=== PATIENT | female | born 1965 | race Caucasian/White ===

== ENCOUNTER → 2016-07-02 | Outpatient (CLI) | payer OTHER ==
--- NOTE | 2016-07-02 18:35 | PN ---
Cassie is seeing me for a yearly check in regard to obstructive sleep apnea. The patient had severe LEONARDO with an AHI of 60. She was diagnosed back in 2007. The patient was given BiPAP at a pressure of 15/11 cm of water. She was having difficulties with her original BiPAP machine and during her last visit in 2013, I was hoping that I could proceed with another titration, which ultimately got declined by her insurance. In the interim, the patient was able to upgrade her machine to a ResMed VPAP auto and today she is coming in for a compliancy check. Since her last evaluation, the patient has lost approximately 25 pounds. Based on the compliance data that was collected over the past 30 days, the patient's CPAP use for more than 4 hours approaching 100%. The patient's average CPAP use is 7.8 hours per night. Her leak factor is 28 L/min and her AHI while on treatment is down to 2.5. She is using a Garay FX mask. She is doing well. She is waking up much more refreshed and alert during the day. This machine has improved this patient's quality of sleep significantly. Her Dresser score is down to 1 and she has no specific complaints otherwise for today. The only issue was mask discomfort from the Garay FX and I gave the patient alternative nasal pillow which will be an AirFit P10. BP is 128/78, pulse 82, respirations 16. Dresser score is 1, saturation 99% on room air, temperature 98.0 inches. Weight is 185. GENERAL APPEARANCE: Calm, comfortable. HEENT: Negative for JVD. There is no goiter, neck mass. LUNGS: Diminished breath sounds bilaterally, otherwise clear. HEART: Sounds are regular rate and rhythm. Normal S1, S2. No S3 or S4. No murmurs. ABDOMEN: Soft, nontender. No organomegaly. EXTREMITIES: No edema. No cyanosis or clubbing. IMPRESSION: 1. Severe symptomatic obstructive sleep apnea with an apnea-hypopnea index of 60. The patient is currently on variable positive airway pressure auto with excellent clinical response and compliance. 2. Obesity with interval 25 pounds weight loss. 3. Anxiety/depression. 4. Hyperlipidemia. 5. Osteoarthritis. PLAN: 1. Continue VPAP auto at the same level of pressures. 2. Provide the patient AirFit P10 nasal pillow. A prescription was given to [facility]. 3. Encourage further weight loss. 4. See me back in a year's time in followup, earlier if needed.
== END | disposition home or self-care (01) ==
LOC: SLEEP 14:18
PROVIDERS: ATTEND Internal Medicine Critical Care Medicine
DX: G47.33 Obstructive sleep apnea (adult) (pediatric) (principal); E66.9 Obesity, unspecified; F32.9 Major depressive disorder, single episode, unspecified; F41.9 Anxiety disorder, unspecified; E78.5 Hyperlipidemia, unspecified; M19.90 Unspecified osteoarthritis, unspecified site

== ENCOUNTER → 2017-06-03 | Outpatient (CLI) | payer BC ==
[2017-06-03 08:29] LABS: Basophils # (A) 0.1 k/uL (0-0.2); Basophils % (A) 1 %; Eosinophils # (A) 0.3 k/uL (0-0.7); Eosinophils % (A) 4 %; HCT 41.2 % (34.0-46.0); Lymphocytes # (A) 3.3 k/uL (1.0-4.8); Lymphocytes % (A) 39 %; MCH 27.9 pg (25.0-35.0); MCHC 31.5 g/dL (31.0-37.0); MCV 88.6 fL (80.0-100.0); Mean Platelet Volume 7.6; Monocytes # (A) 0.5 k/uL (0-1.0); Monocytes % (A) 6 %; Neutrophils # (A) 4.1 k/uL (1.3-7.7); Neutrophils % (A) 48 %; Platelet Count 286 k/uL (150-450); RBC 4.64 m/uL (3.80-5.40); RDW 14.3 % (11.5-15.5); WBC 8.5 k/uL (3.8-10.6)
[2017-06-03 08:32] LABS: Appearance,Urine Clear (Clear); Bilirubin,Urine Negative (Negative); Blood,Urine Negative (Negative); Color,Urine Yellow; Glucose,Urine (UA) Negative (Negative); Ketones,Urine Negative (Negative); Leukocyte Esterase,Urine Moderate (Negative); Mucus,Urine Rare /hpf; Nitrite,Urine Negative (Negative); PH, Urine 5.5 (5.0-8.0); Protein,Urine Negative (Negative); Specific Gravity,Urine 1.014 (1.001-1.035); Squamous Epithelial Cell,Urine <1 /hpf (0-4); Urobilinogen,Urine <2.0 mg/dL (<2.0); WBC,Urine 7 /hpf (0-5)
[2017-06-03 08:45] LABS: ALT 45 U/L (9-52); AST 20 U/L (14-36); Albumin 4.2 g/dL (3.5-5.0); Alkaline Phosphatase 73 U/L (38-126); Anion Gap 11 mmol/L; Blood Urea Nitrogen 17 mg/dL (7-17); Calcium 10.1 mg/dL (8.4-10.2); Carbon Dioxide 30 mmol/L (22-30); Chloride 102 mmol/L (98-107); Cholesterol 149 mg/dL (<200); Creatine Kinase 62 U/L (30-135); Glucose 110 mg/dL (74-99); HDL Cholesterol 56 mg/dL (40-60); LDL Cholesterol,Calculated 52 mg/dL (0-99); Magnesium 1.8 mg/dL (1.6-2.3); Sodium 143 mmol/L (137-145); Total Bilirubin 0.4 mg/dL (0.2-1.3); Total Protein 6.7 g/dL (6.3-8.2); Triglycerides 207 mg/dL (<150); Uric Acid 6.9 mg/dL (3.7-7.4)
[2017-06-03 09:00] LABS: T4, Free (Free Thyroxine) 0.91 ng/dL (0.78-2.19)
[2017-06-03 17:22] LABS: Hemoglobin A1C 6.2 % (4.0-6.0)
== END | disposition home or self-care (01) ==
LOC: LABWHC1 07:26
PROVIDERS: ATTEND Internal Medicine
DX: E55.9 Vitamin D deficiency, unspecified (principal); I10 Essential (primary) hypertension; E11.9 Type 2 diabetes mellitus without complications
CPT/HCPCS: 36415; 80053; 80061; 81001; 82043; 82306; 82550; 82570; 83036; 83735; 84439; 84443; 84550; 85025

== ENCOUNTER → 2017-06-20 | Outpatient (CLI) | payer BC | END | disposition home or self-care (01) | LOC: LABPAT 07:35 | PROVIDERS: ATTEND Orthopaedic Surgery | DX: Z01.812 Encounter for preprocedural laboratory examination (principal) | CPT/HCPCS: 87070 ==

== ENCOUNTER → 2017-06-25 | Outpatient (CLI) | payer BC ==
[2017-06-25 13:29] LABS: Partial Thromboplastin Time 22.9 sec (22.0-30.0); Prothrombin Time 9.8 sec (9.0-12.0)
== END | disposition home or self-care (01) ==
LOC: LABPAT 12:20
PROVIDERS: ATTEND Orthopaedic Surgery
DX: Z01.812 Encounter for preprocedural laboratory examination (principal); M17.11 Unilateral primary osteoarthritis, right knee; Z51.81 Encounter for therapeutic drug level monitoring; Z79.01 Long term (current) use of anticoagulants
CPT/HCPCS: 85610; 85730

== ENCOUNTER 2017-06-30 06:03 | Inpatient (IN) | payer BC ==
[2017-06-24 18:18] VITALS: BMI 37.3
--- NOTE | 2017-06-29 19:00 | HP ---
HISTORY AND PHYSICAL REASON FOR ADMISSION: Surgery is scheduled for 06/30/2017 HISTORY OF PRESENT ILLNESS: Cassie Hartley is a 51-year-old patient seen with symptomatic right knee osteoarthritis. We discussed treatment options. She elected to proceed with right total knee arthroplasty. Consent was obtained. Medical clearance was provided by Dr. Kurtz. PAST MEDICAL HISTORY: Hypertension, hyperlipidemia, rzp-cdywxmy-tnkprqkoh diabetes. PAST SURGICAL HISTORY: Cholecystectomy, herniorrhaphy, hysterectomy. DAILY MEDICATIONS: Atorvastatin, losartan, metformin. ALLERGIES: PENICILLIN AND NICKEL. SOCIAL HISTORY: Patient denies tobacco use. PHYSICAL EXAMINATION: Evaluation of the right knee range of motion is -2/3 to 115 degrees tenderness medial joint line. Positive medial Luis's crepitus medial patellofemoral compartments and range of motion. Pain with patellofemoral compression. Ligaments stable. Hip rotation without pain. Distal neurovascular exam is intact. RADIOGRAPHS: Radiographs of the right knee revealed severe medial moderate patellofemoral compartment osteoarthritis. IMPRESSION: 1. Right knee osteoarthritis. 2. Hypertension. 3. Hyperlipidemia. 4. Ceq-chvoijl-yxhuqsubg diabetes. PLAN: Right total knee arthroplasty. Surgery scheduled for 06/30/17. MMODL / IJN: [id number] /
[~2017-06-30 06:03] MED LIST: ACETAMINOPHEN TAB 500 MG TAB PO ONE; CLINDAMYCIN 900 MG in DEXTROSE 5% IN WATER 50 ML IVPB ONE; HYDROmorphone 0.5 MG/0.5 ML SYRINGE IVP PRN; MELOXICAM 7.5 MG TAB PO ONE; MIDAZOLAM 2 MG/2 ML VIAL IV PRN; MORPHINE SULFATE 4 MG/ML SYRINGE IV PRN; ONDANSETRON 4 MG/2 ML VIAL IVP PRN; TRANEXAMIC ACID 1,000 MG in SODIUM CHLORIDE 0.9% 50 ML IVPB ONE
[2017-06-30] MEDS: LACTATED RINGERS 1,000 ML IV SCH ×5 (06:39→20:52)
[2017-06-30 06:40] LABS: Glucose,Whole Blood 102 mg/dL (75-99)
[2017-06-30] MEDS ORDERED: LIDOCAINE 1% 20 ML VIAL (10MG/ML) FOR IV START INTRADERMA ONE (06:40)
[2017-06-30] MEDS ORDERED: ROPIVACAINE 246.25 MG, EPINEPHrine 0.5 MG, KETOROLAC 30 MG, cloNIDine HCL/PF 80 MCG, WA... MISCELLANE ONE ×5 (07:29)
[2017-06-30] MEDS ORDERED: MIDAZOLAM 2 MG/2 ML VIAL ONE (07:30)
[2017-06-30] MEDS ORDERED: ePHEDrine SULFATE/0.9% NACL/PF 50 MG/5 ML SYRINGE IV ONE (07:30)
[2017-06-30] MEDS ORDERED: LIDOCAINE 1% INJ 10MG/ML (20 ML MDV) ONE (07:30)
[2017-06-30] MEDS ORDERED: fentaNYL (PF) 50 MCG/ML 2 ML AMP ONE (07:30)
[2017-06-30] MEDS ORDERED: KETAMINE 10 MG/ML 20 ML VIAL ONE (07:30)
[2017-06-30] MEDS ORDERED: SODIUM CHLORIDE 0.9% 100 ML BAG ONE (07:30)
[2017-06-30] MEDS ORDERED: PROPOFOL 10 MG/ML 20 ML VIAL IV ONE (07:30)
[2017-06-30] MEDS ORDERED: diphenhydrAMINE 50 MG/ML 1 ML VIAL ONE (07:30)
[2017-06-30] MEDS ORDERED: TRANEXAMIC ACID 1,000 MG/10 ML VIAL ONE (07:30)
[2017-06-30] MEDS ORDERED: CLINDAMYCIN 600 MG in SODIUM CHLORIDE 0.9% 1,000 ML IRRIGATION ONE ×2 (08:11→08:27)
[2017-06-30] MEDS ORDERED: LACTATED RINGERS 1,000 ML IV ONE (09:08)
[2017-06-30] MEDS ORDERED: ROPIVACAINE 1,100 MG, SODIUM CHLORIDE 0.9% 330 ML MISCELLANE PRN ×2 (09:28)
[2017-06-30] MEDS ORDERED: HYDROmorphone 2 MG/ML 1 ML SYRINGE IVP PRN (09:30)
[2017-06-30] MEDS ORDERED: NALOXONE 0.4 MG/ML 1 ML VIAL IV PRN (09:30)
--- NOTE | 2017-06-30 09:30 | P.OP ---
Date of Procedure: 06/30/17 Preoperative Diagnosis: Right knee osteoarthritis Postoperative Diagnosis: Right knee osteoarthritis Procedure(s) Performed: Right total knee arthroplasty Implants: 1. Cami NexGen LPS flex size D right tivanium cemented femur 2. Cami NexGen size 4 tivanium cemented tibia 3. Cami NexGen posterior stabilized size E/F 10 mm polyethylene tibial insert 4. Cami NexGen all polyethylene size 32 cemented patella Anesthesia: regional (Adductor canal catheter), local, spinal Surgeon: Markie Dyson Electronic Science Teacher #1: Emir Baird Estimated Blood Loss (ml): 50 Pathology: other (Bone) Condition: stable Disposition: PACU Indications for Procedure: 51-year-old patient seen with symptomatic right knee osteoarthritis. After having treatment options discussed, she elected to proceed with right total knee arthroplasty. Operative Findings: see description of procedure Description of Procedure: Patient was taken to the operative suite after having an adductor canal catheter placed by the department of anesthesia. Patient underwent a spinal anesthetic by the department of anesthesia. Patient was given preoperative IV intake antibiotics and TXA. A well-padded tourniquet was placed about the [] lower extremity. The lower extremity was then prepped and draped in the normal sterile orthopedic fashion. The extremity was elevated, a tourniquet was insufflated to 350. A standard anterior incision was made sharply through skin. Dissection was taken down through the subcutaneous soft tissues down to the extensor mechanism. A medial arthrotomy was performed, patella was everted and knee was flexed. There was advanced osteoarthritis noted. A proximal tibial cutting guide was positioned. Proximal tibial cut was made. A distal intramedullary femoral cutting guide was positioned, distal femoral cut made. We placed the appropriate sizing guide and selected the appropriate size. A distal 4-in-1 femoral cutting block was positioned, distal femoral cuts were made. We then cut our box for the femur with appropriate instrumentation. We now placed a trial femoral component into position, along with an appropriate size tibial tray and insert. We now took the knee through range of motion and had full extension good flexion and good overall soft tissue balance noted. The patella was everted and a flush cut made with patellar quad tendon. We templated the patella, appropriate drill holes were made. An appropriate trial patella was positioned, knee was taken through full range of motion with the patella tracking very nicely. The trial patella was removed. Drill holes were made through the femoral component. All trial components were removed after marking off the appropriate rotation of the tibia. Retractors were now positioned along the proximal tibia. An appropriate keel punch was made with the appropriate size tibial guide. At this point appropriate size implants were chosen and opened. The joint was irrigated copiously with pulse lavage mechanical irrigation. The posterior capsule was infiltrated with local analgesic. We mixed antibiotic methylmethacrylate. Once the methyl methacrylate was ready, the tibial component was cemented into place removing any excess methylmethacrylate. The femoral component was cemented into place removing the removing any excess methylmethacrylate. We then inserted the appropriate size polyethylene tibial insert. We made sure that it was locked into position. We took the knee into full extension, and then back in a flexion making sure we had removed any excess methylmethacrylate. The patellar component was then cemented down and secured with clamp. Excess methylmethacrylate removed. We kept the knee in full extension, patellar clamp in position until methylmethacrylate had hardened. Once it had hardened the patellar clamp was removed. The knee was taken through full range of motion. The patella tracked nicely. There was good soft tissue balancing. The tourniquet was now released. Additional hemostasis was achieved via electrocautery. Second gram of TXA was given. The wound was irrigated with pulse lavage mechanical irrigation. The extensor mechanism was repaired with Vicryl. We checked the repair with range of motion and it was stable. The subcutaneous soft tissues were repaired with Vicryl in layers. The skin was approximated with pernio/Dermabond. Sterile dressings were applied followed by loose web roll and Fernando bandage. The patient was transferred to a bed, and taken to recovery in stable and satisfactory condition. Sundeep CARLOS assisted with the procedure.
--- NOTE | 2017-06-30 10:18 | XR ---
EXAMINATION TYPE: XR knee limited RT DATE OF EXAM: 06/30/2017 CLINICAL HISTORY: Right knee pain and arthritis status post total knee replacement. TECHNIQUE: Portable AP and crosstable lateral views of the right knee are obtained immediately posto peratively. COMPARISON: None FINDINGS: Metallic hardware from total right knee arthroplasty is seen and appears satisfactory in a lignment and position. There is evidence of recent surgery with diffuse subcutaneous gas in the ramires llofemoral and pre-patellar spaces. IMPRESSION: METALLIC HARDWARE FROM TOTAL RIGHT KNEE ARTHROPLASTY IS SATISFACTORY IN ALIGNMENT.
[2017-06-30 10:19] LABS: Glucose,Whole Blood 106 mg/dL (75-99)
[2017-06-30] MEDS: traMADol 50 MG TAB PO SCH ×3 (12:37→22:14)
[2017-06-30] MEDS: CLINDAMYCIN 900 MG in DEXTROSE 5% IN WATER 50 ML IVPB SCH ×4 (12:39→20:50)
--- NOTE | 2017-06-30 15:40 | P.CONS ---
History of Present Illness - Reason for Consult Consult date: 06/30/17 Medical management - History of Present Illness this is a 51-year-old female patient of Dr. Kurtz with a past medical history of diabetes mellitus type 2, gastroesophageal reflux disease, vitamin D deficiency, hypertension, depression, obstructive sleep apnea, osteoarthritis. Patient has been admitted to the hospital under the care of Dr. Alma Delia Valencia status post right knee arthroplasty. Patient has not had any postop complications. Vital signs are stable. Patient denies any lightheadedness, dizziness, nausea or vomiting. Review of Systems All systems: negative Constitutional: Denies chills, Denies fever Eyes: denies blurred vision, denies pain Ears, nose, mouth and throat: Denies headache, Denies sore throat Cardiovascular: Denies chest pain, Denies shortness of breath Respiratory: Denies cough Gastrointestinal: Denies abdominal pain, Denies diarrhea, Denies nausea, Denies vomiting Genitourinary: Denies dysuria, Denies hematuria Musculoskeletal: Denies myalgias Musculoskeletal: right: knee pain Integumentary: Denies pruritus, Denies rash Neurological: Denies numbness, Denies weakness Psychiatric: Denies anxiety, Denies depression Endocrine: Denies fatigue, Denies weight change Past Medical History Past Medical History: Diabetes Mellitus, GERD/Reflux, Hyperlipidemia, Hypertension, Osteoarthritis (OA), Sleep Apnea/CPAP/BIPAP Additional Past Medical History / Comment(s): Vit. D deficiency,sees Dr. Anderson for her heart murmur. History of Any Multi-Drug Resistant Organisms: None Reported Past Surgical History: Hernia Repair, Hysterectomy, Orthopedic Surgery Additional Past Surgical History / Comment(s): Bilat. carpal tunnel, Cyst removed from R wrist and back. EGD, Colonoscopy, hernia repair. Past Anesthesia/Blood Transfusion Reactions: Previous Problems w/ Anesthesia, Family History of Problems w/ Anesthesia Additional Past Anesthesia/Blood Transfusion Reaction / Comm: States she woke up during her surgery for cyst removal. Mother has difficulty waking up from anesthesia. Past Psychological History: Depression Smoking Status: Former smoker Past Alcohol Use History: Occasional Additional Past Alcohol Use History / Comment(s): patient quit smoking in 1987. She drinks 4 alcoholic beverages per month. Patient drinks 3 cups of coffee per day. Past Drug Use History: None Reported - Past Family History Mother Family Medical History: Deep Vein Thrombosis (DVT) Additional Family Medical History / Comment(s): mother at age 74 with history of blood clots. Father Additional Family Medical History / Comment(s): paternal grandmother colon CA. Father at age 72 with history of diabetes. Daughter(s) Additional Family Medical History / Comment(s): colon polyps(precancerous) Son(s) Additional Family Medical History / Comment(s): Patient has one son with no major medical problems. Brother(s) Additional Family Medical History / Comment(s): Patient has 1 brother and 1 sister with no major medical problems. Medications and Allergies Home Medications Medication Instructions Recorded Confirmed Type Aspirin 81 mg PO DAILY 06/20/15 06/30/17 History Atorvastatin [Lipitor] 10 mg PO DAILY 06/20/15 06/30/17 History Citalopram Hydrobromide [CeleXA] 10 mg PO QAM 06/20/15 06/30/17 History Losartan Potassium [Cozaar] 50 mg PO QAM 06/20/15 06/30/17 History metFORMIN HCL [Glucophage] 500 mg PO BID 06/20/15 06/30/17 History Ergocalciferol [Vitamin D2] 50,000 unit PO FR 06/24/17 06/30/17 History Latanoprost Ophth [Xalatan 0.005%] 1 drops BOTH EYES HS 06/25/17 06/30/17 History Naproxen Sodium [Aleve] 440 mg PO DAILY PRN 06/25/17 06/30/17 History Allergies Allergy/AdvReac Type Severity Reaction Status Date / Time nickel Allergy welts,skin Verified 06/30/17 10:02 weeps Penicillins Allergy Anaphylaxis Verified 06/30/17 10:02 acetaminophen AdvReac headache,states Verified 06/30/17 10:02 [From Tylenol-Codeine #3] "can take norco" codeine AdvReac headache,states Verified 06/30/17 10:02 [From Tylenol-Codeine #3] "can take norco" Physical Exam Vitals: Vital Signs Temp Pulse Pulse Resp BP Pulse Ox 06/30/17 11:00 97.8 F 73 16 108/67 100 06/30/17 10:25 74 16 110/62 99 06/30/17 10:10 73 16 113/63 99 06/30/17 09:55 70 16 113/59 98 06/30/17 09:40 97.4 F L 73 119/57 100 06/30/17 07:28 98.2 F 77 16 147/75 98 06/30/17 06:27 98.2 F 77 16 147/75 98 Intake and Output 06/29/17 06/30/17 06/30/17 22:59 06:59 14:59 Intake Total 200 1358 Output Total 50 Balance 200 1308 Intake: IV 200 1358 Output: Estimated Blood Loss 50 Other: # Voids 1 Weight 92.533 kg Patient Weight 07/01/17 06:59 Weight 92.533 kg Gen: This is a 51-year-old obese female. Patient sitting up in bed and appears to be in no acute distress. HEENT: Head is atraumatic, normocephalic. Pupils equal, round. Sclerae is anicteric. NECK: Supple. No JVD. No lymphadenopathy. No thyromegaly. LUNGS: Clear to auscultation. No wheezes or rhonchi. No intercostal retractions. HEART: Regular rate and rhythm. No murmur. ABDOMEN: Soft. Bowel sounds are present. No masses. No tenderness. EXTREMITIES: No pedal edema. No calf tenderness. Dressing in place to the right knee. NEUROLOGICAL: Patient is awake, alert and oriented x3. Cranial nerves 2 through 12 are grossly intact. Results Labs: Abnormal Lab Results - Last 24 Hours (Table) 06/30/17 06/30/17 Range/Units 06:36 10:17 POC Glucose (mg/dL) 102 H 106 H (75-99) mg/dL Assessment and Plan Plan: 1. Osteoarthritis status post right total knee arthroplasty under the care of Dr. Dyson. Continue current plan of care, pain management, PT/OT per orthopedics. currently on Lovenox for DVT prophylaxis, Pepcid for GI prophylaxis. 2. Hypertension. Continue Cozaar 50 mg daily. 3. Diabetes mellitus type 2. Continue metformin 500 mg twice daily. 4. Hyperlipidemia. Continue Lipitor 10 mg daily. 5. Depression, recurrent. Continue Celexa 10 mg daily. 6. Vitamin D deficiency. Continue supplement. 7. Obstructive sleep apnea, stable. Impression and plan of care have been directed as dictated by the signing physician. Billie Moreno nurse practitioner acting as scribe for signing physician.
[2017-06-30 19:19] LABS: Glucose,Whole Blood 172 mg/dL (75-99)
[2017-06-30] MEDS: ENOXAPARIN 30 MG/0.3 ML SYRINGE SQ SCH (20:16)
[2017-06-30] MEDS: SENNOSIDES-DOCUSATE SODIUM 1 EACH TAB PO SCH (20:16)
[2017-06-30] MEDS: metFORMIN 500 MG TAB PO SCH (20:17)
[2017-06-30] MEDS: HYDROmorphone 2 MG/ML 1 ML SYRINGE IVP PRN (22:13)
[2017-07-01] MEDS: HYDROmorphone 2 MG/ML 1 ML SYRINGE IVP PRN ×4 (04:34→17:03)
[2017-07-01] MEDS: LACTATED RINGERS 1,000 ML IV SCH ×3 (05:27→18:10)
[2017-07-01 07:16] LABS: Glucose,Whole Blood 125 mg/dL (75-99)
[2017-07-01 07:46] LABS: Basophils % (A) 0 %; Eosinophils % (A) 0 %; HCT 32.2 % (34.0-46.0); HGB 10.5 gm/dL (11.4-16.0); Lymphocytes # (A) 1.7 k/uL (1.0-4.8); Lymphocytes % (A) 19 %; MCH 28.2 pg (25.0-35.0); MCHC 32.5 g/dL (31.0-37.0); Monocytes # (A) 0.6 k/uL (0-1.0); Monocytes % (A) 7 %; Neutrophils # (A) 6.6 k/uL (1.3-7.7); Neutrophils % (A) 72 %; Platelet Count 257 k/uL (150-450); WBC 9.1 k/uL (3.8-10.6)
[2017-07-01] MEDS: hydrOXYzine PAMOATE 25 MG CAP PO PRN ×2 (07:53→18:15)
[2017-07-01] MEDS: traMADol 50 MG TAB PO SCH ×4 (07:53→21:29)
[2017-07-01] MEDS: MELOXICAM 7.5 MG TAB PO SCH (07:55)
[2017-07-01] MEDS: ENOXAPARIN 30 MG/0.3 ML SYRINGE SQ SCH (07:55)
[2017-07-01] MEDS: metFORMIN 500 MG TAB PO SCH ×2 (07:55→18:09)
[2017-07-01] MEDS: FAMOTIDINE 20 MG TAB PO SCH (07:56)
[2017-07-01] MEDS ORDERED: ONDANSETRON 4 MG/2 ML VIAL IVP PRN (08:03)
[2017-07-01] MEDS ORDERED: IV FLUID CONTINUATION 1,000 ML IV ONE (09:10)
[2017-07-01] MEDS ORDERED: MIDAZOLAM 2 MG/2 ML VIAL IV ONE (09:30)
[2017-07-01] MEDS ORDERED: MORPHINE SULFATE 5 MG/ML SYRINGE IV ONE (09:45)
[2017-07-01] MEDS ORDERED: MEPERIDINE 50 MG/ML SYRINGE IVP ONE (09:45)
--- NOTE | 2017-07-01 09:54 | P.ONQ ---
Anesthesiology Proc Note - PNB - Peripheral Nerve Block Performed Right Adductor Canal Infusion Time Out Performed: Yes Procedure Start Time: 07:10 Procedure Stop Time: 07:16 Indication: Acute Post-Operative Pain, Requested by physician Sedation Type: Sedate with meaningful contact maintained Preparation: Sterile Dressing Position: Supine Catheter: Indwelling Needle Types: On-Q Needle Size: 100mm (4") Needle Gauge: 18, 21 Technique: Ultrasound Injectate: 0.5% Ropivacaine (see comment for volume) (ropi.5% 20cc) Blood Aspirated: No Pain Paresthesia on Injection Noted: No Resistance on Injection: Normal Events: Uneventful and Well Tolerated
--- NOTE | 2017-07-01 10:14 | P.PN ---
Progress Note - Text 07/01 650am 51 yr old female s/p r tkr by Dr Dyson. Patient has an On-Q pump for postop pain control, patient seen and evaluated this morning, patient complained of poor pain control and had been given IV narcotics with not much relief. On-Q pump was running at 14 mL an hour, I decided to bring her down to the recovery room and redo the adductor canal catheter. We took the dressing down and re prepped the area, I was unable to visualize any landmarks because of edema in the leg. I decided to cancel the procedure and treated her with IV narcotics and I did explain it to her the reasons why I was not proceeding.
[2017-07-01 11:45] LABS: Glucose,Whole Blood 116 mg/dL (75-99)
[2017-07-01] MEDS ORDERED: HYDROcodone/APAP 7.5-325MG 1 EACH TAB PO PRN (11:51)
[2017-07-01] MEDS: LOSARTAN 50 MG TAB PO SCH (12:07)
[2017-07-01] MEDS: HYDROcodone/APAP 7.5-325MG 1 EACH TAB PO PRN ×2 (12:07→18:14)
[2017-07-01] MEDS: CITALOPRAM HYDROBROMIDE 10 MG TAB PO SCH (12:07)
--- NOTE | 2017-07-01 12:25 | P.PN ---
Subjective Progress Note Date: 07/01/17 Principal diagnosis: Status post right total knee arthroplasty Patient seen today resting in her hospital bed, she has noted increasing pain. Patient's On-Q pump was not working, there was attempt to place another one which was unsuccessful. There is questions regarding patient tolerance to oral pain medication, this has been resolved. She denies any headaches, lightheadedness or chest pain. Objective - Vital Signs Vital signs: Vital Signs Temp 99.6 F 07/01/17 07:00 Pulse 80 07/01/17 10:00 Resp 15 07/01/17 10:00 BP 134/74 07/01/17 10:00 Pulse Ox 94 L 07/01/17 10:00 Intake & Output 06/30/17 07/01/17 07/01/17 18:59 06:59 18:59 Intake Total 1708 1100 Output Total 50 Balance 1658 1100 Weight 92.533 kg Intake: IV 1358 Intake, IV Titration 200 1100 Amount Clindamycin 900 mg In 50 Dextrose 5% in Water 50 ml @ 100 mls/hr IVPB Q6H RENEE Rx#:[id number] Lactated Ringers 1,000 ml 200 1050 @ 100 mls/hr IV .Q10H RENEE Rx#:[id number] Oral 150 Output: Estimated Blood Loss 50 Other: # Voids 2 2 - Exam Right lower extremity: Incision is clean, dry, and intact. The prineo tape is in good condition. There is minimal soft tissue swelling and ecchymosis surrounding the medial and lateral aspects of the incision. Calf is soft, no tenderness with palpation. Plantar flexion, dorsiflexion, EHL, FHL are intact. Sensory exam to light touch throughout the extremity is intact, dorsal pedis pulses 2+. - Labs CBC & Chem 7: 07/01/17 06:53 Labs: Abnormal Lab Results - Last 24 Hours (Table) 06/30/17 07/01/17 07/01/17 Range/Units 19:14 06:53 07:14 RBC 3.70 L (3.80-5.40) m/uL Hgb 10.5 L (11.4-16.0) gm/dL Hct 32.2 L (34.0-46.0) % POC Glucose (mg/dL) 172 H 125 H (75-99) mg/dL 01/30/18 Range/Units 11:42 RBC (3.80-5.40) m/uL Hgb (11.4-16.0) gm/dL Hct (34.0-46.0) % POC Glucose (mg/dL) 116 H (75-99) mg/dL Assessment and Plan Plan: Assessment: 1. Postop day 1 status post right total knee arthroplasty Plan: 1. Pain control, continue with oral medication and IV as needed 2. GI and DVT prophylaxis, continue Lovenox 3. Continue therapy and use of CPM 4. Encourage incentive spirometer 5. Medical recommendations 6. Discharge planning: Patient likely be discharged home in the next day or 2 Time with Patient: Less than 30
[2017-07-01] MEDS ORDERED: FUROSEMIDE 10 MG/ML 4 ML VIAL IV STA (14:09)
--- NOTE | 2017-07-01 15:27 | P.PN ---
Subjective Progress Note Date: 07/01/17 This is a 51-year-old female patient of Dr. Kurtz with a past medical history of diabetes mellitus type 2, gastroesophageal reflux disease, vitamin D deficiency, hypertension, depression, obstructive sleep apnea, osteoarthritis. Patient has been admitted to the hospital under the care of Dr. Alma Delia Valencia status post right knee arthroplasty. Patient has not had any postop complications. Vital signs are stable. Patient denies any lightheadedness, dizziness, nausea or vomiting. 07/01: Hemoglobin stable at 10.5. Patient will be resumed back on losartan. Q- pump was discontinued and patient treated with IV narcotics and oral narcotics. Patient had some nausea vomiting during the night. She states she has no appetite secondary to pain. Ultrasound of the right lower extremity will be added, Lasix and prednisone to assist with the inflammation/edema of the right leg. Objective - Vital Signs Vital signs: Vital Signs Temp 99.6 F 07/01/17 07:00 Pulse 80 07/01/17 10:00 Resp 15 07/01/17 10:00 BP 134/74 07/01/17 10:00 Pulse Ox 94 L 07/01/17 10:00 Intake & Output 06/30/17 07/01/17 07/01/17 18:59 06:59 18:59 Intake Total 1708 1100 Output Total 50 Balance 1658 1100 Weight 92.533 kg Intake: IV 1358 Intake, IV Titration 200 1100 Amount Clindamycin 900 mg In 50 Dextrose 5% in Water 50 ml @ 100 mls/hr IVPB Q6H RENEE Rx#:[id number] Lactated Ringers 1,000 ml 200 1050 @ 100 mls/hr IV .Q10H RENEE Rx#:[id number] Oral 150 Output: Estimated Blood Loss 50 Other: # Voids 2 2 - Exam Gen: This is a 51-year-old obese female. Patient sitting up in bed and appears to be in no acute distress. HEENT: Head is atraumatic, normocephalic. Pupils equal, round. Sclerae is anicteric. NECK: Supple. No JVD. No lymphadenopathy. No thyromegaly. LUNGS: Clear to auscultation. No wheezes or rhonchi. No intercostal retractions. HEART: Regular rate and rhythm. No murmur. ABDOMEN: Soft. Bowel sounds are present. No masses. No tenderness. EXTREMITIES: No pedal edema. No calf tenderness. Dressing in place to the right knee. NEUROLOGICAL: Patient is awake, alert and oriented x3. Cranial nerves 2 through 12 are grossly intact. - Labs CBC & Chem 7: 07/01/17 06:53 Labs: Abnormal Lab Results - Last 24 Hours (Table) 06/30/17 07/01/17 07/01/17 Range/Units 19:14 06:53 07:14 RBC 3.70 L (3.80-5.40) m/uL Hgb 10.5 L (11.4-16.0) gm/dL Hct 32.2 L (34.0-46.0) % POC Glucose (mg/dL) 172 H 125 H (75-99) mg/dL Assessment and Plan Plan: 1. Osteoarthritis status post right total knee arthroplasty under the care of Dr. Dyson. Continue current plan of care, pain management, PT/OT per orthopedics. currently on Lovenox for DVT prophylaxis, Pepcid for GI prophylaxis. Ultrasound of the right lower extremity, prednisone 40 mg and Lasix ordered. 2. Hypertension. Continue Cozaar 50 mg daily. 3. Diabetes mellitus type 2. Continue metformin 500 mg twice daily. 4. Hyperlipidemia. Continue Lipitor 10 mg daily. 5. Depression, recurrent. Continue Celexa 10 mg daily. 6. Vitamin D deficiency. Continue supplement. 7. Obstructive sleep apnea, stable. Impression and plan of care have been directed as dictated by the signing physician. Billie Moreno nurse practitioner acting as scribe for signing physician.
--- NOTE | 2017-07-01 16:21 | US ---
"EXAMINATION TYPE: US venous doppler duplex LE RT DATE OF EXAM: 07/01/2017 3:52 PM COMPARISON: NONE CLINICAL HISTORY: edema. Patient has right leg swelling and pain and is post right knee replacement x 1 day. SIDE PERFORMED: Right TECHNIQUE: The lower extremity deep venous system is examined utilizing real time linear array sonog bhanu with graded compression, doppler sonography and color-flow sonography. VESSELS IMAGED: Common Femoral Vein Deep Femoral Vein Greater Saphenous Vein * Femoral Vein: unable to visualize mid and lower Femoral Vein due to swelling and edema Popliteal Vein Small Saphenous Vein * Proximal Calf Veins: unable to visualize due to swelling and edema (* superficial vessels) Right Leg: Thready flow is seen throughout right Popliteal Vein which suggests non occluding DVT rig ht leg. Mid and lower Right Femoral Vein are not seen during scanning assessment and patency is also not see with distal augmentation maneuver at this lower Femoral Vein level. IMPRESSION: Limited exam due to extensive lower extremity swelling and edema, however there is sugge stion of a nonocclusive deep venous thrombosis within the right popliteal vein. A [place] message has been communicated to Markie Dyson DO via the [employer] | Critical Re sult system on 07/01/2017 4:18 PM, Message ID [id number]."
[2017-07-01] MEDS ORDERED: HEPARIN SODIUM,PORCINE 5,000 UNIT/ML 1 ML VIAL IV STA (16:28)
[2017-07-01] MEDS ORDERED: HEPARIN SODIUM,PORCINE 10,000 UNIT/ML 1 ML VIAL IV ONE (16:32)
[2017-07-01] MEDS ORDERED: HEPARIN SODIUM,PORCINE 5,000 UNIT/ML 1 ML VIAL IV PRN (16:32)
[2017-07-01] MEDS ORDERED: HEPARIN SOD,PORK IN 0.45% NACL 25,000 UNIT in 0.45% NACL 1 500ML.BAG IV SCH ×2 (16:45→17:00)
[2017-07-01] MEDS ORDERED: HEPARIN SODIUM,PORCINE 5,000 UNIT/ML 1 ML VIAL IV ONE (16:48)
[2017-07-01 17:28] LABS: Basophils % (A) 0 %; Eosinophils % (A) 0 %; HCT 32.6 % (34.0-46.0); HGB 10.5 gm/dL (11.4-16.0); Lymphocytes # (A) 1.5 k/uL (1.0-4.8); Lymphocytes % (A) 17 %; MCH 27.9 pg (25.0-35.0); MCHC 32.1 g/dL (31.0-37.0); MCV 86.9 fL (80.0-100.0); Mean Platelet Volume 7.6; Monocytes # (A) 0.5 k/uL (0-1.0); Monocytes % (A) 5 %; Neutrophils # (A) 6.8 k/uL (1.3-7.7); Neutrophils % (A) 77 %; Platelet Count 236 k/uL (150-450); RBC 3.75 m/uL (3.80-5.40); RDW 13.3 % (11.5-15.5); WBC 8.9 k/uL (3.8-10.6)
[2017-07-01 17:33] LABS: Glucose,Whole Blood 142 mg/dL (75-99)
[2017-07-01 17:41] LABS: INR 1.1 (<1.2); Partial Thromboplastin Time 24.8 sec (22.0-30.0); Prothrombin Time 10.6 sec (9.0-12.0)
[2017-07-01] MEDS: predniSONE 20 MG TAB PO SCH (18:09)
[2017-07-01] MEDS: POTASSIUM CHLORIDE ER 20 MEQ TAB.ER PO SCH (18:09)
[2017-07-01 21:17] LABS: Glucose,Whole Blood 195 mg/dL (75-99)
[2017-07-01] MEDS: INSULIN ASPART 100 UNIT/ML 1 ML 10 ML VIAL SQ SCH (21:28)
[2017-07-01] MEDS: LATANOPROST 0.005% OPHTH DROPS 2.5 ML BTL BOTH EYES SCH (21:29)
[2017-07-01] MEDS: SENNOSIDES-DOCUSATE SODIUM 1 EACH TAB PO SCH (21:49)
[2017-07-02] MEDS: HEPARIN SODIUM,PORCINE 5,000 UNIT/ML 1 ML VIAL IV PRN ×2 (01:48→09:21)
[2017-07-02] MEDS: LACTATED RINGERS 1,000 ML IV SCH ×3 (02:10→23:48)
[2017-07-02] MEDS: HYDROcodone/APAP 7.5-325MG 1 EACH TAB PO PRN ×4 (05:50→23:49)
[2017-07-02 07:30] LABS: Glucose,Whole Blood 127 mg/dL (75-99)
[2017-07-02 07:52] LABS: Basophils % (A) 0 %; Eosinophils % (A) 0 %; HCT 33.1 % (34.0-46.0); HGB 10.7 gm/dL (11.4-16.0); Lymphocytes # (A) 2.2 k/uL (1.0-4.8); Lymphocytes % (A) 20 %; MCHC 32.4 g/dL (31.0-37.0); MCV 86.5 fL (80.0-100.0); Mean Platelet Volume 7.4; Monocytes # (A) 0.8 k/uL (0-1.0); Monocytes % (A) 7 %; Neutrophils # (A) 7.6 k/uL (1.3-7.7); Neutrophils % (A) 71 %; Platelet Count 287 k/uL (150-450); RBC 3.83 m/uL (3.80-5.40); RDW 12.9 % (11.5-15.5); WBC 10.8 k/uL (3.8-10.6)
[2017-07-02 08:23] LABS: Anion Gap 8 mmol/L; Blood Urea Nitrogen 9 mg/dL (7-17); Calcium 9.4 mg/dL (8.4-10.2); Carbon Dioxide 31 mmol/L (22-30); Chloride 96 mmol/L (98-107); Glucose 122 mg/dL (74-99); Potassium 4.3 mmol/L (3.5-5.1); Sodium 135 mmol/L (137-145)
[2017-07-02] MEDS: INSULIN ASPART 100 UNIT/ML 1 ML 10 ML VIAL SQ SCH ×4 (09:06→20:43)
[2017-07-02] MEDS: traMADol 50 MG TAB PO SCH ×4 (09:20→21:04)
[2017-07-02] MEDS: hydrOXYzine PAMOATE 25 MG CAP PO PRN ×3 (09:20→23:49)
[2017-07-02] MEDS: HYDROmorphone 2 MG/ML 1 ML SYRINGE IVP PRN (09:33)
[2017-07-02] MEDS: metFORMIN 500 MG TAB PO SCH ×2 (09:38→16:24)
[2017-07-02] MEDS: LOSARTAN 50 MG TAB PO SCH (09:38)
[2017-07-02] MEDS: ATORVASTATIN 10 MG TAB PO SCH (09:38)
[2017-07-02] MEDS: CITALOPRAM HYDROBROMIDE 10 MG TAB PO SCH (09:38)
[2017-07-02] MEDS: FAMOTIDINE 20 MG TAB PO SCH (09:39)
[2017-07-02] MEDS: FUROSEMIDE 40 MG TAB PO SCH (09:39)
[2017-07-02] MEDS: MELOXICAM 7.5 MG TAB PO SCH (09:39)
[2017-07-02] MEDS: predniSONE 20 MG TAB PO SCH (09:40)
[2017-07-02] MEDS: POTASSIUM CHLORIDE ER 20 MEQ TAB.ER PO SCH (09:40)
--- NOTE | 2017-07-02 11:13 | P.PN ---
Subjective Progress Note Date: 07/02/17 Principal diagnosis: Status post right total knee arthroplasty Patient seen today resting in her hospital bed, her is present at bedside. There was some question yesterday with regards to increasing pain and swelling in the lower extremity, internal medicine did order a lower extremity Doppler. Doppler results do demonstrate a DVT. She's been properly anticoagulated at this time. She denies any headaches, lightheadedness or chest pain. Objective - Vital Signs Vital signs: Vital Signs Temp 98.5 F 07/02/17 07:00 Pulse 69 07/02/17 07:00 Resp 18 07/02/17 07:00 BP 154/89 07/02/17 07:00 Pulse Ox 95 07/02/17 07:00 Intake & Output 07/01/17 07/02/17 07/02/17 18:59 06:59 18:59 Intake Total 600 258.333 473.405 Output Total 400 150 Balance 600 -141.667 323.405 Intake: Intake, IV Titration 600 258.333 173.405 Amount Heparin Sod,Pork in 0.45% 133.333 173.405 NaCl 25,000 unit In 0.45 % NaCl 1 500ml.bag @ 10. 807 UNITS/KG/HR 20 mls/hr IV .Q24H [facility] Rx#: [id number] Lactated Ringers 1,000 ml 600 @ 100 mls/hr IV .Q10H [facility] Rx#:[id number] Lactated Ringers 1,000 ml 125 @ 20 mls/hr IV .Q24H [facility] Rx#:[id number] Oral 0 300 Output: Urine 400 150 Other: # Voids 2 1 - Exam Right lower extremity: Incision is clean, dry, and intact. The prineo tape is in good condition. There is increase in soft tissue swelling and ecchymosis surrounding the medial and lateral aspects of the incision. Calf is soft with palpation. Plantar flexion, dorsiflexion, EHL, FHL are intact. Sensory exam to light touch throughout the extremity is intact, dorsal pedis pulses 2+. - Labs CBC & Chem 7: 07/02/17 07:30 07/02/17 07:30 Labs: Abnormal Lab Results - Last 24 Hours (Table) 07/01/17 07/01/17 07/01/17 Range/Units 11:42 17:05 17:30 WBC (3.8-10.6) k/uL RBC 3.75 L (3.80-5.40) m/uL Hgb 10.5 L (11.4-16.0) gm/dL Hct 32.6 L (34.0-46.0) % APTT (22.0-30.0) sec Sodium (137-145) mmol/L Chloride (98-107) mmol/L Carbon Dioxide (22-30) mmol/L Glucose (74-99) mg/dL POC Glucose (mg/dL) 116 H 142 H (75-99) mg/dL 07/01/17 07/02/17 07/02/17 Range/Units 21:02 00:35 07:23 WBC (3.8-10.6) k/uL RBC (3.80-5.40) m/uL Hgb (11.4-16.0) gm/dL Hct (34.0-46.0) % APTT 41.6 H (22.0-30.0) sec Sodium (137-145) mmol/L Chloride (98-107) mmol/L Carbon Dioxide (22-30) mmol/L Glucose (74-99) mg/dL POC Glucose (mg/dL) 195 H 127 H (75-99) mg/dL 07/02/17 07/02/17 07/02/17 Range/Units 07:30 07:30 07:30 WBC 10.8 H (3.8-10.6) k/uL RBC (3.80-5.40) m/uL Hgb 10.7 L (11.4-16.0) gm/dL Hct 33.1 L (34.0-46.0) % APTT 41.8 H (22.0-30.0) sec Sodium 135 L (137-145) mmol/L Chloride 96 L (98-107) mmol/L Carbon Dioxide 31 H (22-30) mmol/L Glucose 122 H (74-99) mg/dL POC Glucose (mg/dL) (75-99) mg/dL Assessment and Plan Plan: Assessment: 1. Postop day #2 status post right total knee arthroplasty Plan: 1. Pain control, continue with oral medication and IV as needed 2. GI and DVT prophylaxis, medical recommendations for extended use of anticoagulation for blood clot 3. Continue therapy and use of CPM 4. Encourage incentive spirometer 5. Medical recommendations 6. Discharge planning: Plan for discharge to home when stable, anticipate 07/03 Time with Patient: Less than 30
[2017-07-02 12:12] LABS: Glucose,Whole Blood 145 mg/dL (75-99)
[2017-07-02] MEDS ORDERED: APIXABAN 5 MG TAB PO SCH (13:45)
--- NOTE | 2017-07-02 14:44 | P.PN ---
Subjective Progress Note Date: 07/02/17 This is a 51-year-old female patient of Dr. Kurtz with a past medical history of diabetes mellitus type 2, gastroesophageal reflux disease, vitamin D deficiency, hypertension, depression, obstructive sleep apnea, osteoarthritis. Patient has been admitted to the hospital under the care of Dr. Alma Delia Valencia status post right knee arthroplasty. Patient has not had any postop complications. Vital signs are stable. Patient denies any lightheadedness, dizziness, nausea or vomiting. 07/01: Hemoglobin stable at 10.5. Patient will be resumed back on losartan. Q- pump was discontinued and patient treated with IV narcotics and oral narcotics. Patient had some nausea vomiting during the night. She states she has no appetite secondary to pain. Ultrasound of the right lower extremity will be added, Lasix and prednisone to assist with the inflammation/edema of the right leg. 07/02: Ultrasound was positive for nonocclusive DVT in the right popliteal vein. Patient was started on a heparin drip. We'll send him a prescription for eliquis for case management to check coverage. Patient will be started on eliquis today and heparin drip can be discontinued. Patient can be discharged home from medicine standpoint. Prescriptions for Lasix and potassium have also been provided. Naproxen discontinued. Objective - Vital Signs Vital signs: Vital Signs Temp 98.5 F 07/02/17 07:00 Pulse 69 07/02/17 07:00 Resp 18 07/02/17 07:00 BP 154/89 07/02/17 07:00 Pulse Ox 95 07/02/17 07:00 Intake & Output 07/01/17 07/02/17 07/02/17 18:59 06:59 18:59 Intake Total 600 258.333 473.405 Output Total 400 150 Balance 600 -141.667 323.405 Intake: Intake, IV Titration 600 258.333 173.405 Amount Heparin Sod,Pork in 0.45% 133.333 173.405 NaCl 25,000 unit In 0.45 % NaCl 1 500ml.bag @ 10. 807 UNITS/KG/HR 20 mls/hr IV .Q24H [facility] Rx#: [id number] Lactated Ringers 1,000 ml 600 @ 100 mls/hr IV .Q10H [facility] Rx#:[id number] Lactated Ringers 1,000 ml 125 @ 20 mls/hr IV .Q24H [facility] Rx#:[id number] Oral 0 300 Output: Urine 400 150 Other: # Voids 2 1 - Exam Gen: This is a 51-year-old obese female. Patient sitting up in bed and appears to be in no acute distress. HEENT: Head is atraumatic, normocephalic. Pupils equal, round. Sclerae is anicteric. NECK: Supple. No JVD. No lymphadenopathy. No thyromegaly. LUNGS: Clear to auscultation. No wheezes or rhonchi. No intercostal retractions. HEART: Regular rate and rhythm. No murmur. ABDOMEN: Soft. Bowel sounds are present. No masses. No tenderness. EXTREMITIES: +right pedal edema. No calf tenderness. Dressing in place to the right knee. NEUROLOGICAL: Patient is awake, alert and oriented x3. Cranial nerves 2 through 12 are grossly intact. - Labs CBC & Chem 7: 07/02/17 07:30 07/02/17 07:30 Labs: Abnormal Lab Results - Last 24 Hours (Table) 07/01/17 07/01/17 07/01/17 Range/Units 11:42 17:05 17:30 WBC (3.8-10.6) k/uL RBC 3.75 L (3.80-5.40) m/uL Hgb 10.5 L (11.4-16.0) gm/dL Hct 32.6 L (34.0-46.0) % APTT (22.0-30.0) sec Sodium (137-145) mmol/L Chloride (98-107) mmol/L Carbon Dioxide (22-30) mmol/L Glucose (74-99) mg/dL POC Glucose (mg/dL) 116 H 142 H (75-99) mg/dL 07/01/17 07/02/17 07/02/17 Range/Units 21:02 00:35 07:23 WBC (3.8-10.6) k/uL RBC (3.80-5.40) m/uL Hgb (11.4-16.0) gm/dL Hct (34.0-46.0) % APTT 41.6 H (22.0-30.0) sec Sodium (137-145) mmol/L Chloride (98-107) mmol/L Carbon Dioxide (22-30) mmol/L Glucose (74-99) mg/dL POC Glucose (mg/dL) 195 H 127 H (75-99) mg/dL 07/02/17 07/02/17 07/02/17 Range/Units 07:30 07:30 07:30 WBC 10.8 H (3.8-10.6) k/uL RBC (3.80-5.40) m/uL Hgb 10.7 L (11.4-16.0) gm/dL Hct 33.1 L (34.0-46.0) % APTT 41.8 H (22.0-30.0) sec Sodium 135 L (137-145) mmol/L Chloride 96 L (98-107) mmol/L Carbon Dioxide 31 H (22-30) mmol/L Glucose 122 H (74-99) mg/dL POC Glucose (mg/dL) (75-99) mg/dL Assessment and Plan Plan: 1. Osteoarthritis status post right total knee arthroplasty under the care of Dr. Dyson. Continue current plan of care, pain management, PT/OT per orthopedics. currently on Lovenox for DVT prophylaxis, Pepcid for GI prophylaxis. Ultrasound of the right lower extremity, prednisone 40 mg and Lasix ordered. 2. Postop DVT, unexpected. Patient has been started on heparin drip and transitioned to eliquis. 3. Hypertension. Continue Cozaar 50 mg daily. 4. Diabetes mellitus type 2. Continue metformin 500 mg twice daily. 5. Hyperlipidemia. Continue Lipitor 10 mg daily. 6. Depression, recurrent. Continue Celexa 10 mg daily. 7. Vitamin D deficiency. Continue supplement. 8. Obstructive sleep apnea, stable. Impression and plan of care have been directed as dictated by the signing physician. Billie Moreno nurse practitioner acting as scribe for signing physician.
[2017-07-02] MEDS ORDERED: WARFARIN 7.5 MG TAB PO ONE (18:00)
[2017-07-02 20:16] LABS: Glucose,Whole Blood 192 mg/dL (75-99)
[2017-07-02] MEDS: LATANOPROST 0.005% OPHTH DROPS 2.5 ML BTL BOTH EYES SCH (20:44)
[2017-07-02] MEDS: SENNOSIDES-DOCUSATE SODIUM 1 EACH TAB PO SCH (21:04)
[2017-07-03 03:53] VITALS: PULSE 74
[2017-07-03] MEDS: hydrOXYzine PAMOATE 25 MG CAP PO PRN ×2 (06:33→12:41)
[2017-07-03] MEDS: HYDROcodone/APAP 7.5-325MG 1 EACH TAB PO PRN ×2 (06:34→12:42)
[2017-07-03 06:52] LABS: Basophils # (A) 0.1 k/uL (0-0.2); Basophils % (A) 0 %; Eosinophils # (A) 0.1 k/uL (0-0.7); Eosinophils % (A) 1 %; HCT 32.1 % (34.0-46.0); HGB 10.4 gm/dL (11.4-16.0); Lymphocytes # (A) 3.4 k/uL (1.0-4.8); Lymphocytes % (A) 31 %; MCH 28.9 pg (25.0-35.0); MCHC 32.5 g/dL (31.0-37.0); MCV 89.2 fL (80.0-100.0); Mean Platelet Volume 7.4; Monocytes # (A) 0.7 k/uL (0-1.0); Monocytes % (A) 7 %; Neutrophils # (A) 6.4 k/uL (1.3-7.7); Neutrophils % (A) 59 %; Platelet Count 286 k/uL (150-450); RDW 13.8 % (11.5-15.5); WBC 10.9 k/uL (3.8-10.6)
[2017-07-03 06:56] LABS: Prothrombin Time 9.7 sec (9.0-12.0)
[2017-07-03 07:08] LABS: Glucose,Whole Blood 112 mg/dL (75-99)
[2017-07-03 08:11] VITALS: BP 120/80; RESP 14; TEMP 98.2
[2017-07-03] MEDS: INSULIN ASPART 100 UNIT/ML 1 ML 10 ML VIAL SQ SCH ×2 (08:12→12:00)
[2017-07-03] MEDS: LACTATED RINGERS 1,000 ML IV SCH (08:13)
[2017-07-03] MEDS: ATORVASTATIN 10 MG TAB PO SCH (08:18)
[2017-07-03] MEDS: FUROSEMIDE 40 MG TAB PO SCH (08:18)
[2017-07-03] MEDS: CITALOPRAM HYDROBROMIDE 10 MG TAB PO SCH (08:18)
[2017-07-03] MEDS: traMADol 50 MG TAB PO SCH ×2 (08:18→12:41)
[2017-07-03] MEDS: LOSARTAN 50 MG TAB PO SCH (08:18)
[2017-07-03] MEDS: POTASSIUM CHLORIDE ER 20 MEQ TAB.ER PO SCH (08:18)
[2017-07-03] MEDS: FAMOTIDINE 20 MG TAB PO SCH (08:18)
[2017-07-03] MEDS: metFORMIN 500 MG TAB PO SCH (08:18)
[2017-07-03] MEDS ORDERED: ENOXAPARIN 150 MG/ML SYRINGE SQ SCH (09:00)
[2017-07-03] MEDS: HYDROmorphone 2 MG/ML 1 ML SYRINGE IVP PRN (10:58)
[2017-07-03 11:26] LABS: Glucose,Whole Blood 116 mg/dL (75-99)
--- NOTE | 2017-07-03 12:10 | P.PN ---
Subjective Progress Note Date: 07/03/17 Principal diagnosis: Status post right total knee arthroplasty Patient seen today resting in her hospital bed, her is present at bedside. Patient sees be doing better today. She's been properly anticoagulated at this time. She denies any headaches, lightheadedness or chest pain. Objective - Vital Signs Vital signs: Vital Signs Temp 98.2 F 07/03/17 07:00 Pulse 74 07/03/17 07:00 Resp 14 07/03/17 07:00 BP 120/80 07/03/17 07:00 Pulse Ox 95 07/03/17 07:00 Intake & Output 07/02/17 07/03/17 07/03/17 18:59 06:59 18:59 Intake Total 1848.405 Output Total 152 2 Balance 1696.405 -2 Intake: Intake, IV Titration 348.405 Amount Heparin Sod,Pork in 0.45% 173.405 NaCl 25,000 unit In 0.45 % NaCl 1 500ml.bag @ 10. 807 UNITS/KG/HR 20 mls/hr IV .Q24H [facility] Rx#: [id number] IV Fluid Continuation 1, 175 000 ml As IV .[facility] Rx#:[id number] Oral 1500 Output: Urine 152 2 Other: # Voids 3 - Exam Right lower extremity: Incision is clean, dry, and intact. The prineo tape is in good condition. Calf is soft with palpation. Plantar flexion, dorsiflexion, EHL, FHL are intact. Sensory exam to light touch throughout the extremity is intact, dorsal pedis pulses 2+. - Labs CBC & Chem 7: 07/03/17 06:21 07/02/17 07:30 Labs: Abnormal Lab Results - Last 24 Hours (Table) 07/02/17 07/02/17 07/02/17 Range/Units 11:53 15:50 19:46 WBC (3.8-10.6) k/uL RBC (3.80-5.40) m/uL Hgb (11.4-16.0) gm/dL Hct (34.0-46.0) % APTT 32.9 H (22.0-30.0) sec POC Glucose (mg/dL) 145 H 192 H (75-99) mg/dL 07/03/17 07/03/17 07/03/17 Range/Units 06:21 07:06 11:24 WBC 10.9 H (3.8-10.6) k/uL RBC 3.60 L (3.80-5.40) m/uL Hgb 10.4 L (11.4-16.0) gm/dL Hct 32.1 L (34.0-46.0) % APTT (22.0-30.0) sec POC Glucose (mg/dL) 112 H 116 H (75-99) mg/dL Assessment and Plan Plan: Assessment: 1. Postop day #3 status post right total knee arthroplasty Plan: 1. Pain control, we'll discharge home on oral medication 2. GI and DVT prophylaxis, plan for discharge on Lovenox 150 mg subcutaneously daily and Coumadin, discontinue Lovenox when Coumadin is therapeutic 3. Continue therapy and use of CPM 4. Encourage incentive spirometer 5. Medical recommendations 6. Discharge planning: Plan for discharge to home today Time with Patient: Less than 30
--- NOTE | 2017-07-03 12:20 | P.DS ---
Providers Date of admission: 06/30/17 06:03 Expected date of discharge: 07/03/17 Attending physician: Markie Dyson Consults: 06/30/17 09:30 Consult Physician Routine Consulting Provider: Liz Kurtz Consult Reason/Comments: Medical management Do you want consulting provider notified?: Yes Primary care physician: Liz Kurtz Hospital Course: Date of admission: 06/30/2017 Date of discharge: 07/03/2014 Admission diagnosis: Status post right total knee arthroplasty Discharge diagnosis: Same Attending physician: Dr. Dyson Surgical procedures: Right total knee arthroplasty Brief history: Patient is a 51-year-old female with a history of progressive primary right knee osteoarthritis. At this point patient has failed conservative treatment measures and has opted to proceed with a elective right total knee arthroplasty. Hospital course: Details of patient's surgery can be found in operative report. Patient tolerated the procedure well and was subsequently transported to orthopedic floor. Patient's orthopeidc and medical care was provided daily. Patient had daily laboratory tests performed for evaluation of overall blood counts. Patient had daily physical therapy to include strengthening range of motion as well as education with walker ambulation. Patient had daily CPM usage as part of their physical therapy program. Patient was treated with Lovenox for their postoperative DVT prophylaxis during their inpatient stay. Postop day 1 patient had noted increasing pain and swelling in the lower extremity, a Doppler ultrasound was ordered which did reveal a nonocclusive DVT in the right lower extremity. She was properly anticoagulated. Patient reported satisfactory pain control with oral pain medications by postoperative day 0. Patient showed satisfactory progress with physical therapy. Patient moved steadily through the program and had no difficulty meeting the goals by postoperative day 3. Given patient's otherwise satisfactory course and having met physical therapy goals, plan is to discharge patient home on postoperative day 3. Discharge condition/disposition: Patient will be discharged home in stable condition. Discharge medications: Instructions are given on resumption of patient's normal daily medications per primary care recommendation, in addition patient will be prescribed [place] 7.5 mg/325 mg, tramadol 50 mg, Colace 100 mg, Lovenox 150 mg, Coumadin 2.5 mg, Pepcid 20 mg, Lasix 40 mg, potassium 10 meq. Discharge instructions: 1. Wound care and infection precautions, keep incision dry and covered while showering, no lotions, creams, moisturizers. No soaking, tubs, pools, hottubs. Do not scrub over the incision. 2. Weight-bear as tolerated with walker / cane until follow-up. 3. Ice and elevate when necessary. Do not exceed 20 minutes per hour with ice pack. 4. Utilize compression sleeve until seen at first follow up appointment. 5. Visiting nursing care. 6. Home physical therapy including home CPM. 7. Pain meds and anticoagulants per prescription. 8. Pain medication has potential to cause constipation. Increase oral fluid and fiber intake. Contact primary care provider if you have not had a bowel movement within 48 hours after discharge 9. No anti-inflammatory medication until discussed at first post operative visit, this including Motrin, Aleve, Mobic, Diclofenac. 10. Follow up in office at 2 weeks postop with Sundeep Baird PA-C 11. Follow up with your primary care doctor 7-10 days after discharge. 12. Contact [facility] with any questions, . Procedures: Right total knee arthroplasty Patient Condition at Discharge: Good Plan - Discharge Summary Discharge Rx Participant: Yes New Discharge Prescriptions: New Famotidine [Pepcid] 20 mg PO DAILY tab Furosemide [Lasix] 40 mg PO DAILY #30 tab Potassium Citrate [Potassium Citrate ER] 10 meq PO BID #60 tablet.er Docusate [Colace] 100 mg PO DAILY #30 capsule Enoxaparin [Lovenox] 150 mg SQ DAILY #15 syringe HYDROcodone/APAP 7.5-325MG [[place] 7.5] 1 - 2 each PO Q6HR PRN #60 tab PRN Reason: Pain traMADol HCl [Ultram] 50 mg PO Q6H PRN #40 tab PRN Reason: Pain Warfarin Sodium [Coumadin] 2.5 mg PO AC-BRKFST #60 tablet Continue metFORMIN HCL [Glucophage] 500 mg PO BID Citalopram Hydrobromide [CeleXA] 10 mg PO QAM Atorvastatin [Lipitor] 10 mg PO DAILY Losartan Potassium [Cozaar] 50 mg PO QAM Ergocalciferol [Vitamin D2 (DRISDOL)] 50,000 unit PO FR Latanoprost Ophth [Xalatan 0.005%] 1 drops BOTH EYES HS Discontinued Aspirin 81 mg PO DAILY Naproxen Sodium [Aleve] 440 mg PO DAILY PRN PRN Reason: Pain Discharge Medication List Atorvastatin [Lipitor] 10 mg PO DAILY 06/20/15 [History] Citalopram Hydrobromide [CeleXA] 10 mg PO QAM 06/20/15 [History] Losartan Potassium [Cozaar] 50 mg PO QAM 06/20/15 [History] metFORMIN HCL [Glucophage] 500 mg PO BID 06/20/15 [History] Ergocalciferol [Vitamin D2 (DRISDOL)] 50,000 unit PO FR 06/24/17 [History] Latanoprost Ophth [Xalatan 0.005%] 1 drops BOTH EYES HS 06/25/17 [History] Famotidine [Pepcid] 20 mg PO DAILY tab 07/02/17 [Rx] Furosemide [Lasix] 40 mg PO DAILY #30 tab 07/02/17 [Rx] Potassium Citrate [Potassium Citrate ER] 10 meq PO BID #60 tablet.er 07/02/17 [ Rx] Docusate [Colace] 100 mg PO DAILY #30 capsule 07/03/17 [Rx] Enoxaparin [Lovenox] 150 mg SQ DAILY #15 syringe 07/03/17 [Rx] HYDROcodone/APAP 7.5-325MG [[place] 7.5] 1 - 2 each PO Q6HR PRN #60 tab 07/03/17 [ Rx] Warfarin Sodium [Coumadin] 2.5 mg PO AC-BRKFST #60 tablet 07/03/17 [Rx] traMADol HCl [Ultram] 50 mg PO Q6H PRN #40 tab 07/03/17 [Rx] Follow up Appointment(s)/Referral(s): Liz Kurtz MD [Primary Care Provider] - 1 Week Emir Baird PAC [PHYSICIAN [employer]AND [employer] EXAMINER] - 07/16/17 2:50 pm [facility] [REFERRING] - Ambulatory/Diagnostic Orders: Prothrombin Time INR [LAB.AMB] Location: Determined By Patient Activity/Diet/Wound Care/Special Instructions: [facility]: [phone] Will contact patient to set up delivery to home Discharge Disposition: HOME WITH HOME HEALTH SERVICES
[2017-07-03] MEDS ORDERED: HYDROmorphone 2 MG TAB PO PRN ×3 (13:34→13:35)
--- NOTE | 2017-07-03 13:57 | P.PN ---
Subjective Progress Note Date: 07/03/17 This is a 51-year-old female patient of Dr. Kurtz with a past medical history of diabetes mellitus type 2, gastroesophageal reflux disease, vitamin D deficiency, hypertension, depression, obstructive sleep apnea, osteoarthritis. Patient has been admitted to the hospital under the care of Dr. Alma Delia Valencia status post right knee arthroplasty. Patient has not had any postop complications. Vital signs are stable. Patient denies any lightheadedness, dizziness, nausea or vomiting. 07/01: Hemoglobin stable at 10.5. Patient will be resumed back on losartan. Q- pump was discontinued and patient treated with IV narcotics and oral narcotics. Patient had some nausea vomiting during the night. She states she has no appetite secondary to pain. Ultrasound of the right lower extremity will be added, Lasix and prednisone to assist with the inflammation/edema of the right leg. 07/02: Ultrasound was positive for nonocclusive DVT in the right popliteal vein. Patient was started on a heparin drip. We'll send him a prescription for eliquis for case management to check coverage. Patient will be started on eliquis today and heparin drip can be discontinued. Patient can be discharged home from medicine standpoint. Prescriptions for Lasix and potassium have also been provided. Naproxen discontinued. 07/03: Patient's insurance did not cover for eliquis and she has been started on Coumadin 7.5 mg last night. INR today is 1.0. Case management has check caused on a seven-day supply of Lovenox. Coumadin prescription provided for 5 mg daily. Patient will have INR checked Friday and Friday and call to Dr. Kurtz. Objective - Vital Signs Vital signs: Vital Signs Temp 98.2 F 07/03/17 07:00 Pulse 74 07/03/17 07:00 Resp 14 07/03/17 07:00 BP 120/80 07/03/17 07:00 Pulse Ox 95 07/03/17 07:00 Intake & Output 07/02/17 07/03/17 07/03/17 18:59 06:59 18:59 Intake Total 1848.405 Output Total 152 2 Balance 1696.405 -2 Intake: Intake, IV Titration 348.405 Amount Heparin Sod,Pork in 0.45% 173.405 NaCl 25,000 unit In 0.45 % NaCl 1 500ml.bag @ 10. 807 UNITS/KG/HR 20 mls/hr IV .Q24H [facility] Rx#: [id number] IV Fluid Continuation 1, 175 000 ml As IV .[facility] Rx#:[id number] Oral 1500 Output: Urine 152 2 Other: # Voids 3 - Exam Gen: This is a 51-year-old obese female. Patient sitting up in bed and appears to be in no acute distress. HEENT: Head is atraumatic, normocephalic. Pupils equal, round. Sclerae is anicteric. NECK: Supple. No JVD. No lymphadenopathy. No thyromegaly. LUNGS: Clear to auscultation. No wheezes or rhonchi. No intercostal retractions. HEART: Regular rate and rhythm. No murmur. ABDOMEN: Soft. Bowel sounds are present. No masses. No tenderness. EXTREMITIES: +right pedal edema. No calf tenderness. Dressing in place to the right knee. NEUROLOGICAL: Patient is awake, alert and oriented x3. Cranial nerves 2 through 12 are grossly intact. - Labs CBC & Chem 7: 07/03/17 06:21 07/02/17 07:30 Labs: Abnormal Lab Results - Last 24 Hours (Table) 07/02/17 07/02/17 07/02/17 Range/Units 11:53 15:50 19:46 WBC (3.8-10.6) k/uL RBC (3.80-5.40) m/uL Hgb (11.4-16.0) gm/dL Hct (34.0-46.0) % APTT 32.9 H (22.0-30.0) sec POC Glucose (mg/dL) 145 H 192 H (75-99) mg/dL 07/03/17 07/03/17 Range/Units 06:21 07:06 WBC 10.9 H (3.8-10.6) k/uL RBC 3.60 L (3.80-5.40) m/uL Hgb 10.4 L (11.4-16.0) gm/dL Hct 32.1 L (34.0-46.0) % APTT (22.0-30.0) sec POC Glucose (mg/dL) 112 H (75-99) mg/dL Assessment and Plan Plan: 1. Osteoarthritis status post right total knee arthroplasty under the care of Dr. Dyson. Continue current plan of care, pain management, PT/OT per orthopedics. currently on Lovenox for DVT prophylaxis, Pepcid for GI prophylaxis. Ultrasound of the right lower extremity, prednisone 40 mg and Lasix ordered. 2. Postop DVT, unexpected. Patient has been started on heparin drip and transitioned to Coumadin. For home, patient will be bridged on Lovenox. 3. Hypertension. Continue Cozaar 50 mg daily. 4. Diabetes mellitus type 2. Continue metformin 500 mg twice daily. 5. Hyperlipidemia. Continue Lipitor 10 mg daily. 6. Depression, recurrent. Continue Celexa 10 mg daily. 7. Vitamin D deficiency. Continue supplement. 8. Obstructive sleep apnea, stable. Impression and plan of care have been directed as dictated by the signing physician. Billie Moreno nurse practitioner acting as scribe for signing physician.
[2017-07-03] MEDS ORDERED: WARFARIN 7.5 MG TAB PO ONE (18:00)
== END 2017-07-03 14:25 | disposition home health service (06) | DRG 470 ==
LOC: 2ORMAIN 06:03 → 3SUR 09:43
PROVIDERS: ADMIT Orthopaedic Surgery; ATTEND Orthopaedic Surgery
PROC: 0SRC0J9 Replacement of Right Knee Joint with Synthetic Substitute, Cemented, Open Approach (ICD-10-PCS; principal; 2017-06-30 07:30)
DX: M17.11 Unilateral primary osteoarthritis, right knee (principal); F33.9 Major depressive disorder, recurrent, unspecified; I82.431 Acute embolism and thrombosis of right popliteal vein; E11.9 Type 2 diabetes mellitus without complications; E78.5 Hyperlipidemia, unspecified; G47.33 Obstructive sleep apnea (adult) (pediatric); I10 Essential (primary) hypertension; K21.9 Gastro-esophageal reflux disease without esophagitis; Z79.82 Long term (current) use of aspirin; Z79.84 Long term (current) use of oral hypoglycemic drugs; Z79.899 Other long term (current) drug therapy; Z80.0 Family history of malignant neoplasm of digestive organs; Z83.3 Family history of diabetes mellitus; Z83.71 Family history of colonic polyps; Z87.891 Personal history of nicotine dependence; Z90.710 Acquired absence of both cervix and uterus; E55.9 Vitamin D deficiency, unspecified; Z88.0 Allergy status to penicillin
CPT/HCPCS: 64447; 80048; 85025; 85610; 85730; 88300

== ENCOUNTER → 2017-07-11 | Outpatient (CLI) | payer BC ==
[2017-07-11 11:06] LABS: INR 1.2 (<1.2); Prothrombin Time 11.7 sec (9.0-12.0)
== END | disposition home or self-care (01) ==
LOC: LABWHC1 10:30
PROVIDERS: ATTEND Nurse Practitioner Family
DX: I82.409 Acute embolism and thrombosis of unspecified deep veins of unspecified lower extremity (principal)
CPT/HCPCS: 36415; 85610

== ENCOUNTER → 2017-08-11 | Outpatient (CLI) | payer BC ==
--- NOTE | 2017-08-12 09:39 | MM ---
Reason for exam: screening (asymptomatic). Last mammogram was performed 2 years ago. History: Patient is postmenopausal. Took estrogen for 2 months beginning at age 41. Physical Findings: A clinical breast exam by your physician is recommended on an annual basis and results should be correlated with mammographic findings. MG Screening Mammo w CAD Bilateral CC and MLO view(s) were taken. Prior study comparison: August 18, 2015, bilateral MG screening mammo w CAD. August 04, 2014, bilateral MG screening mammo w CAD. The breast tissue is almost entirely fat. Stable benign calcifications. No significant changes when compared with prior studies. ASSESSMENT: Benign, BI-RAD 2 RECOMMENDATION: Routine screening mammogram of both breasts in 1 year.
== END | disposition home or self-care (01) ==
LOC: RADMAMWWP 09:08
PROVIDERS: ATTEND Internal Medicine
DX: Z12.31 Encounter for screening mammogram for malignant neoplasm of breast (principal)
CPT/HCPCS: 77067

== ENCOUNTER → 2017-09-03 | Outpatient (CLI) | payer BC ==
--- NOTE | 2017-09-03 20:35 | US ---
EXAMINATION TYPE: US venous doppler duplex LE RT DATE OF EXAM: 09/03/2017 5:44 PM COMPARISON: NONE CLINICAL HISTORY: I82.401 Acute embolism and thrombosis. Right leg pain and swelling hx of DVT patien t on blood thinners. SIDE PERFORMED: Right TECHNIQUE: The lower extremity deep venous system is examined utilizing real time linear array sonog bhanu with graded compression, doppler sonography and color-flow sonography. VESSELS IMAGED: External Iliac Vein (EIV) Common Femoral Vein Deep Femoral Vein Greater Saphenous Vein * Femoral Vein Popliteal Vein Small Saphenous Vein * Proximal Calf Veins (* superficial vessels) DESCRIPTION: Grayscale, color doppler, spectral doppler imaging performed of the deep veins of the lo wer extremities. There is normal flow, compressibility, vascular waveforms. IMPRESSION: 1. NEGATIVE FOR ACUTE DVT, RIGHT LOWER EXTREMITY. 2. NONOCCLUSIVE CHRONIC THROMBUS VISUALIZED AT THE PERIPHERY OF THE POPLITEAL VEIN.
== END | disposition home or self-care (01) ==
LOC: RADUSMAIN 17:15
PROVIDERS: ATTEND Nurse Practitioner Family
DX: I82.531 Chronic embolism and thrombosis of right popliteal vein (principal)

== ENCOUNTER → 2017-09-15 | Outpatient (CLI) | payer BC ==
[2017-09-15 07:37] LABS: INR 2.7 (<1.2); Prothrombin Time 24.2 sec (9.0-12.0)
== END | disposition home or self-care (01) ==
LOC: LABWHC1 07:10
PROVIDERS: ATTEND Nurse Practitioner Family
DX: I82.401 Acute embolism and thrombosis of unspecified deep veins of right lower extremity (principal)
CPT/HCPCS: 36415; 85610

== ENCOUNTER → 2017-09-17 | Outpatient (CLI) | payer BC ==
[2017-09-17 20:31] LABS: Cardiolipin Ab IgG Interp NEGATIVE (NEGATIVE); Cardiolipin Ab IgM Interp NEGATIVE (NEGATIVE); Cardiolipin IgA Antibody 1.6 U/mL; Cardiolipin IgM Antibody 6.4 U/mL
== END | disposition home or self-care (01) ==
LOC: LABWHC1 13:02
PROVIDERS: ATTEND Internal Medicine Hematology & Oncology
DX: H40.9 Unspecified glaucoma (principal); M15.0 Primary generalized (osteo)arthritis; I82.5Z9 Chronic embolism and thrombosis of unspecified deep veins of unspecified distal lower extremity; Z71.3 Dietary counseling and surveillance
CPT/HCPCS: 36415; 81240; 81241; 83090; 86147

== ENCOUNTER 2017-10-04 01:55 | Emergency (ER) | payer BC ==
[2017-10-04] MEDS ORDERED: ASPIRIN 81 MG PO STA (02:20)
--- NOTE | 2017-10-04 02:25 | ED ---
Chest Pain HPI - General Chief Complaint: Chest Pain Stated Complaint: Pain between shoulder blades Time Seen by Provider: 10/04/17 02:02 Source: patient Mode of arrival: ambulatory Limitations: no limitations - History of Present Illness Initial Comments: This patient is a 51-year-old woman who presents to be evaluated for pain across the upper back. Patient states that pain came on 1-1/2 hours ago while she was lying in bed. She states that she was feeling in between the shoulder blades all across her back area she states it was a little difficult to characterize but most like a tightness. It seemed to be coming and going lasting probably around 10 minutes. She did not note any worsening or relieving factors. Patient states that she also had a little bit of nausea associated, no vomiting. The pain is currently resolved. MD Complaint: chest pain Onset/Timin -: minutes(s) Onset: during rest Pain Location: other (Back) Pain Radiation: none Severity: moderate Quality: tightness Consistency: intermittent, now resolved Improves With: nothing Worsens With: nothing Anginal Symptoms: nausea Treatments Prior to Arrival: none - Related Data Home Medications Medication Instructions Recorded Confirmed Atorvastatin [Lipitor] 10 mg PO DAILY 06/20/15 10/04/17 Citalopram Hydrobromide [CeleXA] 10 mg PO QAM 06/20/15 10/04/17 Losartan Potassium [Cozaar] 50 mg PO QAM 06/20/15 10/04/17 metFORMIN HCL [Glucophage] 500 mg PO BID 06/20/15 10/04/17 Latanoprost Ophth [Xalatan 0.005%] 1 drops BOTH EYES HS 06/25/17 10/04/17 Cholecalciferol [Vitamin D3] 5,000 unit PO DAILY 10/01/17 10/04/17 Allergies Allergy/AdvReac Type Severity Reaction Status Date / Time nickel Allergy welts,skin Verified 10/01/17 08:59 weeps Penicillins Allergy Anaphylaxis Verified 10/01/17 08:59 acetaminophen AdvReac headache,states Verified 10/01/17 08:59 [From Tylenol-Codeine #3] "can take norco" codeine AdvReac headache,states Verified 10/01/17 08:59 [From Tylenol-Codeine #3] "can take norco" Review of Systems ROS Statement: Those systems with pertinent positive or pertinent negative responses have been documented in the HPI. ROS Other: All systems not noted in ROS Statement are negative. Constitutional: Denies: fever, chills Respiratory: Denies: cough, dyspnea Cardiovascular: Reports: as per HPI, chest pain. Denies: palpitations, orthopnea, edema, syncope Gastrointestinal: Reports: nausea. Denies: abdominal pain, vomiting Genitourinary: Denies: dysuria, hematuria Musculoskeletal: Reports: as per HPI, back pain Skin: Denies: rash Neurological: Denies: headache, weakness, numbness EKG Findings - EKG Results: EKG: interpreted by ERMD, sinus rhythm (Rate approximately 83 bpm), normal axis , normal QRS, normal ST/T - Blocks, [place], Hypertrophy, ST Abn: AV and intraventricular conduction: 1 AV block Past Medical History Past Medical History: Diabetes Mellitus, GERD/Reflux, Hyperlipidemia, Hypertension, Osteoarthritis (OA), Sleep Apnea/CPAP/BIPAP Additional Past Medical History / Comment(s): Vit. D deficiency,sees Dr. Anderson for her heart murmur. History of Any Multi-Drug Resistant Organisms: None Reported Past Surgical History: Hernia Repair, Hysterectomy, Orthopedic Surgery Additional Past Surgical History / Comment(s): Bilat. carpal tunnel, Cyst removed from R wrist and back. EGD, Colonoscopy, hernia repair. Past Anesthesia/Blood Transfusion Reactions: Previous Problems w/ Anesthesia, Family History of Problems w/ Anesthesia Additional Past Anesthesia/Blood Transfusion Reaction / Comment(s): States she woke up during her surgery for cyst removal. Mother has difficulty waking up from anesthesia. Past Psychological History: Depression Smoking Status: Former smoker Past Alcohol Use History: Rare Past Drug Use History: None Reported - Past Family History Mother Family Medical History: Deep Vein Thrombosis (DVT) Additional Family Medical History / Comment(s): mother at age 74 with history of blood clots. Father Family Medical History: Deep Vein Thrombosis (DVT) Additional Family Medical History / Comment(s): paternal grandmother colon CA. Father at age 72 with history of diabetes. Daughter(s) Additional Family Medical History / Comment(s): colon polyps(precancerous) Son(s) Additional Family Medical History / Comment(s): Patient has one son with no major medical problems. Brother(s) Additional Family Medical History / Comment(s): Patient has 1 brother and 1 sister with no major medical problems. General Exam Limitations: no limitations General appearance: alert, in no apparent distress Head exam: Present: atraumatic, normocephalic Eye exam: Present: normal appearance. Absent: scleral icterus, conjunctival injection Respiratory exam: Present: normal lung sounds bilaterally. Absent: respiratory distress, wheezes, rales, rhonchi, stridor, chest wall tenderness Cardiovascular Exam: Present: regular rate, normal rhythm, normal heart sounds. Absent: systolic murmur, diastolic murmur, rubs, gallop GI/Abdominal exam: Present: soft. Absent: distended, tenderness, guarding, rebound, mass Extremities exam: Present: normal inspection, normal capillary refill. Absent: pedal edema, calf tenderness Back exam: Present: normal inspection. Absent: CVA tenderness (R), CVA tenderness (L) Skin exam: Present: warm, dry, intact, normal color. Absent: rash Course Vital Signs 10/04/17 10/04/17 10/04/17 01:58 02:16 02:18 Temperature 98.1 F 97.4 F L Pulse Rate 88 84 Respiratory 20 16 16 Rate Blood Pressure 147/87 139/94 O2 Sat by Pulse 98 100 Oximetry 10/04/17 10/04/17 02:59 03:54 Temperature 98.2 F Pulse Rate 78 79 Respiratory 15 16 Rate Blood Pressure 127/78 118/59 O2 Sat by Pulse 100 98 Oximetry Disposition Clinical Impression: Chest pain Disposition: HOME SELF-CARE Condition: Good Instructions: Chest Pain (ED) Is patient prescribed a controlled substance at d/c from ED?: No Referrals: Liz Kurtz MD [Primary Care Provider] - 1-2 days Jc Bernstein MD [STAFF PHYSICIAN] - 1-2 days
[2017-10-04 02:36] LABS: Basophils % (A) 0 %; Eosinophils # (A) 0.2 k/uL (0-0.7); Eosinophils % (A) 2 %; HCT 36.9 % (34.0-46.0); HGB 11.9 gm/dL (11.4-16.0); Lymphocytes # (A) 3.6 k/uL (1.0-4.8); Lymphocytes % (A) 33 %; MCH 25.9 pg (25.0-35.0); MCHC 32.2 g/dL (31.0-37.0); Mean Platelet Volume 7.1; Monocytes # (A) 0.7 k/uL (0-1.0); Monocytes % (A) 6 %; Neutrophils # (A) 6.3 k/uL (1.3-7.7); Neutrophils % (A) 58 %; Platelet Count 361 k/uL (150-450); RBC 4.59 m/uL (3.80-5.40)
[2017-10-04 02:40] LABS: MCV 80.4 fL (80.0-100.0)
--- NOTE | 2017-10-04 02:45 | XR ---
EXAMINATION TYPE: XR chest 2V DATE OF EXAM: 10/04/2017 COMPARISON: NONE HISTORY: Chest pain TECHNIQUE: Frontal and lateral views of the chest are obtained. FINDINGS: Heart and mediastinum are normal. Lungs are clear. Diaphragm is normal. There are chest le ads. Bony thorax is intact. IMPRESSION: Normal chest
[2017-10-04 02:53] LABS: ALT 22 U/L (9-52); AST 21 U/L (14-36); Alkaline Phosphatase 95 U/L (38-126); Amylase 45 U/L (30-110); Anion Gap 13 mmol/L; Blood Urea Nitrogen 15 mg/dL (7-17); Calcium 9.9 mg/dL (8.4-10.2); Carbon Dioxide 29 mmol/L (22-30); Chloride 98 mmol/L (98-107); Glucose 122 mg/dL (74-99); Lipase 135 U/L (23-300); Magnesium 1.6 mg/dL (1.6-2.3); Partial Thromboplastin Time 22.6 sec (22.0-30.0); Potassium 4.5 mmol/L (3.5-5.1); Prothrombin Time 9.9 sec (9.0-12.0); Sodium 140 mmol/L (137-145); Total Bilirubin 0.3 mg/dL (0.2-1.3); Total Protein 6.6 g/dL (6.3-8.2)
[2017-10-04] MEDS ORDERED: RX INFO: IV CONTRAST WAS GIVEN 1 EACH MISC MISCELLANE PRN (02:56)
[2017-10-04 02:57] LABS: D-Dimer 1.75 mg/L FEU (<0.60)
[2017-10-04 03:22] LABS: Creatine Kinase 120 U/L (30-135)
--- NOTE | 2017-10-04 03:27 | CT ---
EXAMINATION TYPE: CT chest angio for PE DATE OF EXAM: 10/04/2017 COMPARISON: NONE HISTORY: chest and upper back pain; elevated D-dimer CT DLP: 388.20 mGycm Automated exposure control for dose reduction was used. CONTRAST: CT Chest for pulmonary embolism performed with with IV Contrast, patient injected with 70 mL of Isovu e 370. FINDINGS: There are 3-D post processed images. The lungs are clear of consolidation. There is no evidence of a pulmonary mass. There is no mediastin al adenopathy. Thoracic aorta is intact. There is no evidence of aneurysm or dissection. There is no pericardial effusion. There is no pleural effusion. There is normal contrast opacification of the pul monary arteries. I see no filling defect. There are no hilar masses. The bony thorax appears intact. IMPRESSION: Normal CT angiogram of the chest. No evidence of pulmonary embolism.
[2017-10-04 03:35] LABS: Creatine Kinase MB 0.7 ng/mL (0.0-2.4); Troponin I <0.012 ng/mL (0.000-0.034)
[2017-10-04] MEDS ORDERED: MORPHINE SULFATE 4 MG/ML SYRINGE IVP STA (03:43)
[2017-10-04] MEDS ORDERED: NITROGLYCERIN SL TABS 0.4 MG TAB SUBLINGUAL STA (03:44)
[2017-10-04 04:04] VITALS: BP 118/59; PULSE 79; RESP 16; TEMP 98.2
== END 2017-10-04 04:32 | disposition home or self-care (01) ==
LOC: EC 01:55
DX: R07.9 Chest pain, unspecified (principal); R11.0 Nausea; K21.9 Gastro-esophageal reflux disease without esophagitis; E11.9 Type 2 diabetes mellitus without complications; E78.5 Hyperlipidemia, unspecified; I10 Essential (primary) hypertension; E55.9 Vitamin D deficiency, unspecified; F32.9 Major depressive disorder, single episode, unspecified; G47.30 Sleep apnea, unspecified; Z99.89 Dependence on other enabling machines and devices; Z87.891 Personal history of nicotine dependence; Z79.82 Long term (current) use of aspirin; Z79.899 Other long term (current) drug therapy; Z79.84 Long term (current) use of oral hypoglycemic drugs; Z91.048 Other nonmedicinal substance allergy status; Z88.0 Allergy status to penicillin; Z88.6 Allergy status to analgesic agent; Z88.5 Allergy status to narcotic agent
CPT/HCPCS: 99285; 36415; 93005; 85379; 80053; 82150; 82550; 82553; 83690; 83735; 84484; 85025; 85610; 85730; 71046; 71275; Q9967

== ENCOUNTER 2017-10-06 08:30 | Day surgery (SDC) | payer BC ==
[2017-10-01 09:47] VITALS: BMI 36.7
--- NOTE | 2017-10-05 12:52 | HP ---
HISTORY AND PHYSICAL Surgery 10/06/2017 Cassie Hratley is a 51-year-old patient seen with right knee adhesions after previously having undergone total knee arthroplasty. Treatment options were discussed. She elected to proceed with manipulation under anesthesia, right knee with steroid injection. Consent regarding the procedure was obtained. PAST MEDICAL HISTORY: Hypertension, hyperlipidemia, jam-dhlvqqh-dpatgijds diabetes. PAST SURGICAL HISTORY: Cholecystectomy, herniorrhaphy, hysterectomy, right total knee arthroplasty. DAILY MEDICATIONS: Atorvastatin, citalopram, losartan, metformin, Lovenox, [place], tramadol. ALLERGIES: PENICILLIN AND NICKEL. SOCIAL HISTORY: The patient denies current tobacco use. PHYSICAL EXAMINATION: Evaluation of the right knee: Range of motion is -3/4 to 90 degrees of flexion. Her incision is well healed. Ligaments are stable. Hip rotation without pain. Distal neurovascular exam intact. RADIOGRAPHS: Radiographs of the right knee reveal a stable appearing total knee arthroplasty. IMPRESSION: 1. Right knee adhesions/stiffness. 2. History of right total knee arthroplasty. 3. Hypertension. 4. Hyperlipidemia. 5. Mbl-xwsgios-xtkathivz diabetes. PLAN: Manipulation under anesthesia, right knee with steroid injection. MMODL / IJN: [id number] /
[~2017-10-06 08:30] MED LIST changes: -ACETAMINOPHEN TAB 500 MG TAB PO ONE; -HYDROmorphone 0.5 MG/0.5 ML SYRINGE IVP PRN; +LACTATED RINGERS 1,000 ML IV SCH; +LIDOCAINE 1% 20 ML VIAL (10MG/ML) FOR IV START INTRADERMA PRN; -MELOXICAM 7.5 MG TAB PO ONE; -MIDAZOLAM 2 MG/2 ML VIAL IV PRN; -MORPHINE SULFATE 4 MG/ML SYRINGE IV PRN; -ONDANSETRON 4 MG/2 ML VIAL IVP PRN; -TRANEXAMIC ACID 1,000 MG in SODIUM CHLORIDE 0.9% 50 ML IVPB ONE; +fentaNYL (PF) 50 MCG/ML 2 ML AMP IV PRN
[2017-10-06 09:15] LABS: Prothrombin Time 9.6 sec (9.0-12.0)
[2017-10-06 09:17] LABS: Glucose,Whole Blood 119 mg/dL (75-99)
[2017-10-06] MEDS ORDERED: CLINDAMYCIN 150 MG/ML 4 ML VIAL IVPB ONE (09:54)
[2017-10-06] MEDS ORDERED: LACTATED RINGERS 1,000 ML IV ONE (09:56)
[2017-10-06] MEDS ORDERED: PROPOFOL 10 MG/ML 20 ML VIAL IV ONE (10:05)
[2017-10-06] MEDS ORDERED: KETOROLAC 30 MG/ML 1 ML VIAL ONE (10:05)
[2017-10-06] MEDS ORDERED: fentaNYL (PF) 50 MCG/ML 2 ML AMP ONE (10:05)
--- NOTE | 2017-10-06 10:21 | P.OP ---
Date of Procedure: 10/06/17 Preoperative Diagnosis: Right knee adhesions Postoperative Diagnosis: Right knee adhesions Procedure(s) Performed: Manipulation under anesthesia right knee with steroid injection Anesthesia: MAC Surgeon: Markie Dyson Estimated Blood Loss (ml): 0 Pathology: none sent Condition: stable Disposition: PACU Indications for Procedure: 51-year-old patient seen with right knee adhesions after previously having undergone total knee arthroplasty. After having treatment options discussed, she elected to proceed with manipulation under anesthesia right knee. Consent regarding the procedure was obtained. Operative Findings: See description of procedure Description of Procedure: Patient was taken to a monitored anesthesia area. The patient underwent IV sedation by the department of anesthesia. Once sufficient anesthesia was noted I performed a manipulation of the right knee. I was able to achieve full extension and 125 of flexion. The superior lateral aspect of the knee was now prepped and draped in the normal sterile orthopedic fashion. I injected a solution of 1 mL Depo-Medrol and 3 mL quarter percent plain Marcaine. I took the knee through range of motion again. I applied a sterile Band-Aid. The patient was awakened having tolerated procedure well.
[2017-10-06 10:32] VITALS: RESP 16; TEMP 97
[2017-10-06 11:27] VITALS: BP 133/85; PULSE 70
== END 2017-10-06 11:46 | disposition home or self-care (01) ==
LOC: OR 08:30
PROVIDERS: ATTEND Orthopaedic Surgery
DX: M23.8X1 Other internal derangements of right knee (principal); Z96.651 Presence of right artificial knee joint; I10 Essential (primary) hypertension; E78.5 Hyperlipidemia, unspecified; E11.9 Type 2 diabetes mellitus without complications; Z79.84 Long term (current) use of oral hypoglycemic drugs; G47.33 Obstructive sleep apnea (adult) (pediatric); F32.9 Major depressive disorder, single episode, unspecified; K21.9 Gastro-esophageal reflux disease without esophagitis; Z79.891 Long term (current) use of opiate analgesic; Z79.899 Other long term (current) drug therapy; Z88.0 Allergy status to penicillin; Z91.048 Other nonmedicinal substance allergy status
CPT/HCPCS: 27570; 85610; J3010; J1885; J2704

== ENCOUNTER → 2019-01-13 | Outpatient (CLI) | payer BC, OTHER ==
--- NOTE | 2019-01-13 09:02 | BD ---
EXAMINATION TYPE: Axial Bone Density DATE OF EXAM: 01/13/2019 COMPARISON: 2014 CLINICAL HISTORY: M 85.9 Height: 63.5 Weight: 207.9 FRAX RISK QUESTIONS: Alcohol (3 or more units per day): no Family History (Parent hip fracture): no Glucocorticoids (More than 3mos): no (Ex: prednisone, prednisolone, methylprednisolone, dexamethasone, and hydrocortisone). History of Fracture in Adulthood: no Secondary Osteoporosis: 1. Type 1 Diabetes: no 2. Hyperthyroidism: no 3. Menopause before 45: yes 4. Malnutrition: no 5. Chronic liver disease: no Rheumatoid Arthritis: no Current Tobacco Use: no RISK FACTORS HISTORY OF: Family History of Osteoporosis: no Active: sometimes Diet low in dairy products/other sources of calcium: no Postmenopausal woman: hysterectomy age 39 Lost more than 2 inches in height since high school: no MEDICATIONS: metformin, losartan, Atorvastatin, citalopram, eye drops, aspirin Additional History: EXAM MEASUREMENTS: Bone mineral densitometry was performed using the [employer] System. Bone mineral density as measured about the Lumbar spine is: ----- L1-L4(G/cm2): 1.378 T Score Values are as follows: ----- L2: 1.9 ----- L3: 1.7 ----- L4: 1.9 ----- L1-L4: 1.7 Bone mineral density has: decreased -5.5 % since study of: 3. Bone mineral density about the R hip (g/cm2): 0.864 Bone mineral density about the L hip (g/cm2): 0.910 T Score values are as follows: -----R Neck: -1.3 -----L Neck: -0.9 -----R Total: -0.1 -----L Total: -0.1 Bone mineral density has: decreased -6.9 % since study of: 3. IMPRESSION: Osteopenia (T Score between -2.5 and -1). There is slightly increased risk of fracture and the patient may be considered for treatment. Re-Screen 2-5 years. NOTE: T-SCORE=SD OF THE YOUNG ADULT MEAN.
== END | disposition home or self-care (01) ==
LOC: RADBDWWP 07:13
PROVIDERS: ATTEND Internal Medicine
DX: M85.80 Other specified disorders of bone density and structure, unspecified site (principal)
CPT/HCPCS: 77080

== ENCOUNTER 2019-01-29 07:05 | Day surgery (SDC) | payer BC, OTHER ==
[2019-01-25 16:10] VITALS: BMI 35.8
[~2019-01-29 07:05] MED LIST changes: -CLINDAMYCIN 900 MG in DEXTROSE 5% IN WATER 50 ML IVPB ONE; -fentaNYL (PF) 50 MCG/ML 2 ML AMP IV PRN
[2019-01-29 07:35] VITALS: TEMP 98.3
[2019-01-29 07:43] LABS: Glucose,Whole Blood 112 mg/dL (75-99)
[2019-01-29] MEDS ORDERED: PROPOFOL 10 MG/ML 20 ML VIAL IV ONE (07:50)
--- NOTE | 2019-01-29 08:11 | P.PCN ---
Date of Procedure: 01/29/19 Procedure(s) Performed: BRIEF HISTORY: Patient is a 53-year-old pleasant 8 female, scheduled for an elective colonoscopy as a part of evaluation of prior history of colon polyps. Her last colonoscopy was done 5 years ago. PROCEDURE PERFORMED: Colonoscopy. PREOPERATIVE DIAGNOSIS: History of colon polyps and right lower quadrant abdominal pain. IV sedation per Anesthesia. PROCEDURE: After informed consent was obtained, the patient, was brought into the endoscopy unit. IV sedation was administered by Anesthesia under continuous monitoring. Digital rectal examination was normal. Initially the Olympus CF-160 flexible video colonoscope was then inserted in the rectum, gradually advanced into the cecum without any difficulty. Careful examination was performed as the scope was gradually being withdrawn. Ileocecal valve and the appendiceal orifice were visualized and appeared normal. Prep was excellent. Mucosa of the cecum, ascending colon, transverse colon, descending colon, sigmoid colon, and rectum appeared normal. Retroflexion was performed in the rectum and no lesions were seen. The patient tolerated the procedure well. IMPRESSION: Normal-appearing colon from rectum to cecum with no evidence of colorectal neoplasia. RECOMMENDATIONS: Findings of this examination were discussed with the patient as well as a family. She was advised to have a repeat surveillance colonoscopy in 5 years from now because of the prior history of colon polyps.
[2019-01-29 08:17] VITALS: PULSE 65; RESP 16
[2019-01-29 08:28] VITALS: BP 120/84
== END 2019-01-29 08:42 | disposition home or self-care (01) ==
LOC: ORWHC2ENDO 07:05
PROVIDERS: ATTEND Internal Medicine Gastroenterology
DX: Z12.11 Encounter for screening for malignant neoplasm of colon (principal); Z86.010 Personal history of colon polyps; K21.9 Gastro-esophageal reflux disease without esophagitis; I10 Essential (primary) hypertension; E78.5 Hyperlipidemia, unspecified; Z86.718 Personal history of other venous thrombosis and embolism; G47.33 Obstructive sleep apnea (adult) (pediatric); E11.9 Type 2 diabetes mellitus without complications; E55.9 Vitamin D deficiency, unspecified; M19.90 Unspecified osteoarthritis, unspecified site; Z90.710 Acquired absence of both cervix and uterus; Z79.82 Long term (current) use of aspirin; Z79.84 Long term (current) use of oral hypoglycemic drugs; Z79.899 Other long term (current) drug therapy; Z88.6 Allergy status to analgesic agent; Z88.5 Allergy status to narcotic agent; Z88.0 Allergy status to penicillin; Z91.09 Other allergy status, other than to drugs and biological substances
CPT/HCPCS: G0105; J2704

== ENCOUNTER → 2019-04-27 | Outpatient (CLI) | payer BC, OTHER ==
--- NOTE | 2019-04-27 11:11 | MM ---
Reason for exam: screening (asymptomatic). Last mammogram was performed 1 year and 8 months ago. History: Patient is postmenopausal. Took estrogen for 2 months beginning at age 41. Physical Findings: A clinical breast exam by your physician is recommended on an annual basis and results should be correlated with mammographic findings. MG Screening Mammo w CAD Bilateral CC and MLO view(s) were taken. Prior study comparison: August 11, 2017, bilateral MG screening mammo w CAD. August 18, 2015, bilateral MG screening mammo w CAD. There are scattered fibroglandular densities. A few scattered tiny benign oil cyst calcifications on both sides. No significant changes when compared with prior studies. ASSESSMENT: Negative, BI-RAD 1 RECOMMENDATION: Routine screening mammogram of both breasts in 1 year.
== END | disposition home or self-care (01) ==
LOC: RADMAMWWP 07:00
PROVIDERS: ATTEND Internal Medicine
DX: Z12.31 Encounter for screening mammogram for malignant neoplasm of breast (principal)
CPT/HCPCS: 77067

== ENCOUNTER → 2019-07-27 | Outpatient (CLI) | payer OTHER ==
[2019-07-27 08:22] LABS: Basophils % (A) 1 %; Eosinophils # (A) 0.2 k/uL (0-0.7); Eosinophils % (A) 2 %; HCT 41.2 % (34.0-46.0); HGB 13.4 gm/dL (11.4-16.0); Lymphocytes # (A) 2.9 k/uL (1.0-4.8); Lymphocytes % (A) 39 %; MCH 27.9 pg (25.0-35.0); MCHC 32.5 g/dL (31.0-37.0); MCV 85.8 fL (80.0-100.0); Mean Platelet Volume 7.7; Monocytes # (A) 0.3 k/uL (0-1.0); Monocytes % (A) 4 %; Neutrophils # (A) 3.9 k/uL (1.3-7.7); Neutrophils % (A) 52 %; Platelet Count 287 k/uL (150-450); WBC 7.4 k/uL (3.8-10.6)
[2019-07-27 14:01] LABS: Hemoglobin A1C 6.2 % (4.0-6.0)
[2019-07-27 17:19] LABS: African American GFR (CKD) 114.6 (60.0-200.0); Albumin 4.4 g/dL (3.80-4.90); Albumin/Globulin Ratio 2.44 (1.60-3.17); Anion Gap 8.3 mmol/L (4.00-12.00); Calcium 9.9 mg/dL (8.7-10.3); Carbon Dioxide 29.7 mmol/L (21.6-31.8); Chol/HDL Ratio 2.51; Globulin 1.8 g/dL (1.6-3.3); LDL Cholesterol,Calculated 54.4 mg/dL (0.0-131.0); Non-African American GFR(CKD) 98.9 (60.0-200.0); Potassium 4.8 mmol/L (3.5-5.5); Total Bilirubin 0.4 mg/dL (0.2-1.2); Total Protein 6.2 g/dL (6.2-8.2); VLDL Calculation 19.6 mg/dL (5.00-40.00)
== END | disposition home or self-care (01) ==
LOC: LABWHC1 07:22
PROVIDERS: ATTEND Internal Medicine
DX: I10 Essential (primary) hypertension (principal); E11.9 Type 2 diabetes mellitus without complications; E78.2 Mixed hyperlipidemia
CPT/HCPCS: 36415; 80053; 80061; 83036; 84443; 85025

== ENCOUNTER → 2019-11-19 | Outpatient (CLI) | payer OTHER ==
[2019-11-19 07:53] LABS: Basophils # (A) 0.1 k/uL (0-0.2); Basophils % (A) 1 %; Eosinophils # (A) 0.1 k/uL (0-0.7); Eosinophils % (A) 2 %; HCT 42.1 % (34.0-46.0); HGB 13.8 gm/dL (11.4-16.0); Lymphocytes # (A) 2.7 k/uL (1.0-4.8); Lymphocytes % (A) 34 %; MCHC 32.8 g/dL (31.0-37.0); MCV 88.2 fL (80.0-100.0); Mean Platelet Volume 7.4; Monocytes # (A) 0.4 k/uL (0-1.0); Monocytes % (A) 6 %; Neutrophils # (A) 4.4 k/uL (1.3-7.7); Neutrophils % (A) 56 %; Platelet Count 307 k/uL (150-450); RBC 4.77 m/uL (3.80-5.40); RDW 13.4 % (11.5-15.5); WBC 7.9 k/uL (3.8-10.6)
[2019-11-19 10:57] LABS: Hemoglobin A1C 6.3 % (4.0-6.0)
[2019-11-19 12:09] LABS: African American GFR (CKD) 113.8 (60.0-200.0); Albumin 4.4 g/dL (3.80-4.90); Albumin/Globulin Ratio 2.1 (1.60-3.17); Anion Gap 7.3 mmol/L (4.00-12.00); BUN/Creat Ratio 25.71 Ratio (12.00-20.00); Calcium 9.8 mg/dL (8.7-10.3); Carbon Dioxide 29.7 mmol/L (21.6-31.8); Chol/HDL Ratio 3.16; Globulin 2.1 g/dL (1.6-3.3); LDL Cholesterol,Calculated 98.6 mg/dL (0.0-131.0); Non-African American GFR(CKD) 98.2 (60.0-200.0); Potassium 4.4 mmol/L (3.5-5.5); Total Bilirubin 0.6 mg/dL (0.3-1.2); Total Protein 6.5 g/dL (6.2-8.2); VLDL Calculation 22.4 mg/dL (5.00-40.00)
== END | disposition home or self-care (01) ==
LOC: LABWHC1 11-16 07:33
PROVIDERS: ATTEND Internal Medicine
DX: I10 Essential (primary) hypertension (principal); E78.2 Mixed hyperlipidemia; E11.9 Type 2 diabetes mellitus without complications
CPT/HCPCS: 36415; 80053; 80061; 83036; 84443; 85025

== ENCOUNTER → 2020-04-05 | Outpatient (CLI) | payer OTHER ==
[2020-04-05 08:03] LABS: Basophils # (A) 0.1 k/uL (0-0.2); Basophils % (A) 1 %; Eosinophils # (A) 0.2 k/uL (0-0.7); Eosinophils % (A) 3 %; HCT 42.5 % (34.0-46.0); HGB 13.8 gm/dL (11.4-16.0); Lymphocytes # (A) 2.6 k/uL (1.0-4.8); Lymphocytes % (A) 33 %; MCH 29.1 pg (25.0-35.0); MCHC 32.3 g/dL (31.0-37.0); MCV 90.1 fL (80.0-100.0); Mean Platelet Volume 7.1; Monocytes # (A) 0.4 k/uL (0-1.0); Monocytes % (A) 6 %; Neutrophils # (A) 4.3 k/uL (1.3-7.7); Neutrophils % (A) 56 %; Platelet Count 297 k/uL (150-450); RBC 4.72 m/uL (3.80-5.40); RDW 13.3 % (11.5-15.5); WBC 7.7 k/uL (3.8-10.6)
[2020-04-05 11:29] LABS: African American GFR (CKD) 96.9 (60.0-200.0); Albumin 4.5 g/dL (3.80-4.90); Albumin/Globulin Ratio 2.05 (1.60-3.17); Anion Gap 10.1 mmol/L (4.00-12.00); BUN/Creat Ratio 23.75 Ratio (12.00-20.00); Calcium 10.1 mg/dL (8.7-10.3); Carbon Dioxide 29.9 mmol/L (21.6-31.8); Chol/HDL Ratio 3.12; Globulin 2.2 g/dL (1.6-3.3); LDL Cholesterol,Calculated 62.2 mg/dL (0.0-131.0); Non-African American GFR(CKD) 83.6 (60.0-200.0); Potassium 5.2 mmol/L (3.5-5.5); Total Bilirubin 0.5 mg/dL (0.3-1.2); Total Protein 6.7 g/dL (6.2-8.2); VLDL Calculation 41.8 mg/dL (5.00-40.00)
[2020-04-05 17:47] LABS: Hemoglobin A1C 6.1 % (4.0-6.0)
== END | disposition home or self-care (01) ==
LOC: LABWHC1 06:58
PROVIDERS: ATTEND Internal Medicine
DX: I10 Essential (primary) hypertension (principal); E78.2 Mixed hyperlipidemia; E11.9 Type 2 diabetes mellitus without complications
CPT/HCPCS: 36415; 80053; 80061; 83036; 84443; 85025

== ENCOUNTER → 2021-03-14 | Outpatient (CLI) | payer OTHER ==
[2021-03-14 11:42] LABS: Basophils # (A) 0.04 X 10*3/uL (0.00-0.10); Basophils % (A) 0.6 %; Eosinophils # (A) 0.14 X 10*3/uL (0.04-0.35); Eosinophils % (A) 1.9 %; HCT 42.7 % (37.2-46.3); HGB 13.5 g/dL (12.0-15.0); Lymphocytes # (A) 3.02 X 10*3/uL (0.90-5.00); Lymphocytes % (A) 41.8 %; MCH 28.1 pg (27.0-32.0); MCHC 31.6 g/dL (32.0-37.0); Monocytes # (A) 0.59 X 10*3/uL (0.20-1.00); Monocytes % (A) 8.2 %; Neutrophils # (A) 3.41 X 10*3/uL (1.80-7.70); Neutrophils % (A) 47.2 %; Platelet Count 341 X 10*3/uL (140-440); RDW 13.6 % (11.5-14.5); WBC 7.22 X 10*3/uL (4.50-10.00)
[2021-03-14 17:27] LABS: African American GFR (CKD) 113.7 (60.0-200.0); Albumin 4.4 g/dL (3.8-4.9); Anion Gap 15.8 mmol/L (4.00-12.00); BUN/Creat Ratio 18.02 Ratio (12.00-20.00); Blood Urea Nitrogen 12.4 mg/dL (9.0-27.0); Calcium 9.8 mg/dL (8.7-10.3); Carbon Dioxide 24.7 mmol/L (21.6-31.8); Chol/HDL Ratio 3.97 Ratio; Globulin 2.2 g/dL (1.6-3.3); HDL Cholesterol 48.9 mg/dL (40.00-60.00); LDL Cholesterol,Calculated 114.9 mg/dL (0.0-131.0); Non-African American GFR(CKD) 98.1 (60.0-200.0); Total Bilirubin 0.3 mg/dL (0.30-1.20); Total Protein 6.6 g/dL (6.2-8.2); VLDL Calculation 30.2 mg/dL (5.00-40.00)
[2021-03-15 05:07] LABS: Urine Creatinine 39.7 mg/dL (28.0-217.0)
== END | disposition home or self-care (01) ==
LOC: LABWHC1 07:21
PROVIDERS: ATTEND Internal Medicine
DX: Z00.00 Encounter for general adult medical examination without abnormal findings (principal); E11.9 Type 2 diabetes mellitus without complications; E78.2 Mixed hyperlipidemia
CPT/HCPCS: 36415; 80053; 80061; 82043; 82570; 83036; 84443; 85025

== ENCOUNTER → 2021-03-22 | Outpatient (CLI) | payer OTHER ==
--- NOTE | 2021-03-22 15:56 | XR ---
EXAMINATION TYPE: XR lumbar spine 2 or 3V DATE OF EXAM: 03/22/2021 CLINICAL HISTORY: pain TECHNIQUE: Three views of the lumbar spine are submitted. COMPARISON: None. FINDINGS: There are 5 lumbar type vertebral bodies identified. The lumbar spine shows satisfactory alignment w ithout evidence of acute fracture or dislocation. Vertebral body heights are within normal limits. Moderate multilevel degenerative disc space narrowing and spondylosis. Facet joint arthropathy. The overlying soft tissue appears unremarkable. IMPRESSION: No acute fracture or dislocation is seen in the lumbar spine. ICD 10 NO FRACTURE, INITIAL EVALUATION
== END | disposition home or self-care (01) ==
LOC: RADXRMAIN 15:26
PROVIDERS: ATTEND Internal Medicine
DX: Z12.31 Encounter for screening mammogram for malignant neoplasm of breast (principal)
CPT/HCPCS: 72100

== ENCOUNTER → 2021-07-31 | Outpatient (CLI) | payer BC, OTHER ==
--- NOTE | 2021-08-01 08:50 | MM ---
Reason for exam: screening (asymptomatic). Last mammogram was performed 2 years and 3 months ago. History: Patient is postmenopausal. Took estrogen for 2 months beginning at age 41. Physical Findings: A clinical breast exam by your physician is recommended on an annual basis and results should be correlated with mammographic findings. MG 3D Screening Mammo W/Cad Bilateral CC and MLO view(s) were taken. Prior study comparison: April 27, 2019, bilateral MG screening mammo w CAD. August 11, 2017, bilateral MG screening mammo w CAD. The breast tissue is almost entirely fat. There is no discrete abnormality. No significant changes when compared with prior studies. ASSESSMENT: Negative, BI-RAD 1 RECOMMENDATION: Routine screening mammogram of both breasts in 1 year.
== END | disposition home or self-care (01) ==
LOC: RADMAMWWP 07:04
PROVIDERS: ATTEND Internal Medicine
DX: Z12.31 Encounter for screening mammogram for malignant neoplasm of breast (principal); M47.816 Spondylosis without myelopathy or radiculopathy, lumbar region
CPT/HCPCS: 77063; 77067

== ENCOUNTER → 2021-10-19 | Outpatient (CLI) | payer BC ==
--- NOTE | 2021-10-19 12:51 | MR ---
EXAMINATION TYPE: MR lumbar spine wo con DATE OF EXAM: 10/19/2021 COMPARISON: None HISTORY: SPONDYLOSIS W/O MYELOPATHY OR RADICULOPATHY, BACK PAIN AND SPASMS TECHNIQUE: Multiplanar, multisequence images of the lumbar spine were acquired without IV contrast. L1-L2: Normal disc appearance without desiccation. No herniation, protrusion or disc bulging. No ca nal stenosis is present. Foramina are patent bilaterally. L2-L3: Normal disc appearance without desiccation. No herniation, protrusion or disc bulging. No ca nal stenosis is present. Foramina are patent bilaterally. L3-L4: Mild decreased signal and loss of height compatible degenerative disc disease. Minimal posteri or disc bulge. No evidence for herniation, protrusion or central stenosis. Ventral spondylosis identi fied. Mild left foraminal encroachment. L4-L5: Mild decreased signal ossified compatible degenerative disc disease. Subligamentous disc protr usion or herniation posterocentrally effacing the ventral thecal sac resulting in mild to moderate ce ntral stenosis. Left foraminal encroachment seen. L5-S1: Mild disc desiccation. Posterocentral disc protrusion or small herniation slightly greater tow ards the left where there may be left lateral recess stenosis. Left foraminal encroachment is noted. Lumbar segments are intact. No paraspinal masses are identified. Conus medullaris has a normal appe arance. IMPRESSION: 1. Multilevel degenerative disc disease. 2. Subligamentous disc protrusion or small herniations at L4-5 and L5-S1. Central stenosis L4-5. See above.
== END | disposition home or self-care (01) ==
LOC: RADMRIMAIN 11:38
PROVIDERS: ATTEND Internal Medicine
DX: M51.36 Other intervertebral disc degeneration, lumbar region (principal)
CPT/HCPCS: 72148

== ENCOUNTER 2021-11-16 07:01 | Day surgery (SDC) | payer BC ==
[2021-11-16] MEDS ORDERED: LACTATED RINGERS 1,000 ML IV SCH (07:08)
[2021-11-16] MEDS ORDERED: LIDOCAINE 1% (10MG/ML) FOR IV START INTRADERMA PRN (07:08)
[2021-11-16 07:17] VITALS: RESP 18; TEMP 97.8
[2021-11-16 07:21] LABS: Glucose,Whole Blood 140 mg/dL (70-110)
[2021-11-16] MEDS ORDERED: ROPIVACAINE 5MG/ML 20ML VIAL ONE (07:43)
[2021-11-16] MEDS ORDERED: methylPREDNISolone ACETATE 40 MG/ML 1 ML VIAL ONE (07:43)
--- NOTE | 2021-11-16 08:10 | P.PCN ---
Date of Procedure: 11/16/21 Procedure(s) Performed: PREOPERATIVE DIAGNOSIS : 1- Lumbar spondylosis with Facet Arthropathy without myelopathy . 2- Lumber degenerative disc disease POSTOPERATIVE DIAGNOSIS: 1- Lumbar spondylosis with Facet Arthropathy without myelopathy . 2- Lumber degenerative disc disease PROCEDURE: Diagnostic bilateral L3 , L4 , and L5 medial branch block under fluoroscopy guidance(fluoroscopy images available in the radiology Department ) ( To target the facet joint between bilateral L4-5 , and L5-S1 ) ANESTHESIA:only Local anesthetic with ropivacaine 0.5% 6 mL used for skin and subcu infiltration . EBL: Minimal COMPLICATION: None PROCEDURE INDICATION: Chronic low back pain secondary to Facet arthropathy unresponsive to conservative treatment. PROCEDURE DESCRIPTION: the patient was seen and identified in the preop holding area , risks and benefits and possible complications of the procedure and alternative were discussed with the patient, and the patient agreed to proceed with the procedure and signed the consent and vital signs monitored during the procedure and fluoroscopy was used to maximize the benefit and accuracy of the needle placement, and sedation was given to decrease patient anxiety, patient was taken to the procedure room and placed in prone position vital signs monitored in the back prepped with chlorhexidine X3 then under strict sterile technique using a right oblique fluoroscopy ,the junction of the transverse process and the superior articulating process of the right L3 , L4 , and L5 vertebra which corresponding to the fluoroscopy image of the eye of the Rosalio dog on the block side for the medial branches and subsequently , after local infiltration of skin and subcu tissuies with Ropivacaine 0.5 % , one mL at each level ,then 25-gauge Quincke-type needles , 3 needle was used , each one of them placed at the junction of the base of the transverse process and the superior articular process at the appropriate level, and the needle was advanced until the periosteum contacted, needle placement confirmed with AP oblique and lateral view and after appropriate needle placement confirmed, and after negative aspiration for heme and CSF and there was no paresthesia 1-1/2 mL of Ropivacaine 0.5% mixed with 20 mg Depo-Medrol , then half mL injected at each level after negative aspiration the needle subsequently removed and the same procedure repeated for the left side at left side at L3 , L4 and L5 levels. At the end of the procedure and the needles removed and a bandage applied after the skin was cleaned the cleaning solution patient taken to recovery room in stable condition and monitors in the recovery room for 20-30 minutes and discharged home in stable condition after discharge criteria met and patient will follow up with the pain clinic in 2-4 weeks
[2021-11-16 08:31] VITALS: BP 114/80; PULSE 71
--- NOTE | 2021-11-16 09:17 | FL ---
EXAMINATION TYPE: FL guided pain mgmt statistic DATE OF EXAM: 11/16/2021 FLUOROSCOPY Fluoroscopy time of 14 seconds was used during bilateral lumbar facet injection. 6 image/s document/ s the procedure.
== END 2021-11-16 08:36 | disposition home or self-care (01) ==
LOC: ORPAIN 07:01
PROVIDERS: ATTEND Specialist
DX: M47.816 Spondylosis without myelopathy or radiculopathy, lumbar region (principal); M51.36 Other intervertebral disc degeneration, lumbar region; G89.29 Other chronic pain; E11.9 Type 2 diabetes mellitus without complications; Z90.710 Acquired absence of both cervix and uterus; Z91.048 Other nonmedicinal substance allergy status; Z88.5 Allergy status to narcotic agent; Z88.6 Allergy status to analgesic agent; Z79.82 Long term (current) use of aspirin; Z79.84 Long term (current) use of oral hypoglycemic drugs; Z79.899 Other long term (current) drug therapy; Z87.891 Personal history of nicotine dependence; Z82.49 Family history of ischemic heart disease and other diseases of the circulatory system; Z83.3 Family history of diabetes mellitus; Z83.71 Family history of colonic polyps; Z86.010 Personal history of colon polyps; Z80.0 Family history of malignant neoplasm of digestive organs
CPT/HCPCS: 64493; 64494; J1030; J2795

== ENCOUNTER → 2021-11-22 | Outpatient (CLI) | payer BC ==
[2021-11-22 12:32] VITALS: BP 132/85; PULSE 58; RESP 14; TEMP 98
--- NOTE | 2021-11-28 14:47 | P.PAINPG ---
Objective - Vital Signs Vital signs: Vital Signs Temp 98 F 11/22/21 12:27 Pulse 58 L 11/22/21 12:27 Resp 14 11/22/21 12:27 BP 132/85 11/22/21 12:27 Pulse Ox 98 11/22/21 12:27 FiO2 Intake & Output 11/21/21 11/22/21 11/22/21 18:59 06:59 18:59 Weight 99.79 kg PQRS Measure Charge Sheet Mode of Arrival: Ambulatory Comment: A 56 yr old female with a history of severe and chronic low back pain secondary to lumbar degenerative disc diseases and lumbar spondylosis with facet arthropathy presents today for BL facet block of the medial branches L4-L5, L5- S1 #1. She states she experienced 100% pain relief for 2 days status post procedure. Pain level is currently at 6 out of 10 in intensity, burning in the left and right lower aspects of the lumbar spine with radiation to the feet bilaterally. Pain is provoked by standing and walking for periods of 20 minutes or more. Pain is alleviated with medications, topicals which provided no relief, injections, heat, chiropractic she was in the past, daily home stretching regimen, repositioning and rest. Interventional pain procedures completed include BL facet blocks of the medial branches L4-L5, L5-S1 #1 Patient is currently on muscle relaxer Patient denies any side effects of the medication(s), denies excessive drowsiness or sleepiness, denies suicidal ideation and reports that the current pain medication is helping to control the pain and improve activities of daily living. Patient denies any motor or sensory deficits. Patient denies any fever or night sweats, denies any change in the bowel movements or urination. Physical Examination: -Constitutional: Cooperative. Not in acute distress . - Neurologic: Cranial nerve II to XII intact. No focal neurological deficits. - Psychatric: Alert & oriented x 3. Matching mood & appropriate affect. Judgment and insight intact. - Musculoskeletal: Cervical spine: Muscle bulk/ tone/ strength in the bilateral upper extremities normal Vertebral body tenderness to palpation over Spurling test positive Distraction test positive Facet loading test positive Thoracic spine Muscle bulk / tone/ strength in the bilateral paraspinal muscles normal Vertebral body tender to palpation over Facet loading test positive Lumbar spine: Motor bulk/ tone/ strength lower extremities , thigh and legs : 5/5 Deep tendon reflexes : Normal Knee Jerk. Normal Ankle Jerk . Vertebral body tenderness to palpation over Lumbar Facet Loading Test positive over BL L4-L5, L5-S1 Straight Leg Raise: positive at 30 degrees right side/ left side Gaenslen's Test positive Sacral spine : Severe tenderness over the Sacroiliac joint: right side / left side Range of motion: Flexion of the lumbar spine <60 degrees Range of motion: Extension of the lumbar spine <20 degrees Gaenslen's Test positive Paul's Test positive Seth test: positive right side / left side Thigh Thrust Test Sacral Thrust Test Assessment and plan: Chronic low back pain secondary to lumbar degenerative disc disease , lumbar spondylosis with facet arthropathy without myelopathy Recommendation of BL MBB of L4-L5, L5-S1 #2. May need a series of injections, up until RFA if necessary, for optimal pain relief. Risks, benefits of procedure discussed and pt verbalized understanding. Denies anticoagulant use or medical history of diabetes. All patient questions answered MAPS reviewed and it was appropriate. I have spent less than 30 minutes on patient care today. Dr Marie was available by phone for the evaluation of this patient. The time was used to review the medical records including relevant urine studies and Prescription history (MAPs), review of the available imaging, evaluation and examination of the patient, coordination of care with the medical staff and if applicable referring physicians, as well as creation of the medical record - Pain Location Lower Back Non-Pharmacological Interventions: Chiropractic Treatment, Heat, Home Exercise, Inactivity, Physical Therapy, Stretching Pharmacological Interventions: Block, Epidural, PRN Medication PQRS Narrative: Smoking Status Never smoker Blood Pressure 132/85 Pain Intensity [Lower Back] 6 Scale Used Numeric (1 - 10) Hx Alcohol Use (MH) No Home Medications: Ambulatory Orders Atorvastatin [Lipitor] 10 mg PO DAILY 06/20/15 Citalopram Hydrobromide [CeleXA] 10 mg PO QAM 06/20/15 Losartan Potassium [Cozaar] 1 tab PO QAM 06/20/15 metFORMIN HCL [Glucophage] 1 tab PO BID 06/20/15 Latanoprost Ophth [Xalatan 0.005%] 1 drops BOTH EYES HS 06/25/17 Aspirin [Adult Low Dose Aspirin EC] 81 mg PO DAILY 01/25/19 Cholecalciferol [Vitamin D3 (125 Mcg = 5000 Iu)] 125 mcg PO Q48H 11/15/21 Omeprazole 1 tab PO DAILY 11/15/21 Controlled Substance Measures - Controlled Substance Measures Is patient prescribed a controlled substance at discharge?: No
== END | disposition home or self-care (01) ==
LOC: PNWHC3 11:02
PROVIDERS: ATTEND Specialist
DX: M47.896 Other spondylosis, lumbar region (principal); M51.36 Other intervertebral disc degeneration, lumbar region
CPT/HCPCS: 99211

== ENCOUNTER 2021-12-07 07:21 | Day surgery (SDC) | payer BC ==
[2021-12-07] MEDS ORDERED: LACTATED RINGERS 1,000 ML IV SCH (07:46)
[2021-12-07 07:53] VITALS: TEMP 97.6
[2021-12-07 07:55] LABS: Glucose,Whole Blood 131 mg/dL (70-110)
--- NOTE | 2021-12-07 08:32 | P.PCN ---
Date of Procedure: 12/07/21 Procedure(s) Performed: Lumbar medial branch block at L4-L5 and L5-S1 Description of Procedure: Procedure: BILATERAL L4-5, L5-S1 Diagnosis: Lumbar spondylosis without myelopathy Anesthesia: Local only Imaging: Fluoroscopy was used, images where saved to the medical record The patient was seen and examined in the [facility]. Procedure risks and benefits were fully reviewed with the patient. The patient understands this is a diagnostic if local only is used, as will be the case today. The goal of the procedure is to inject medication onto the medial branch or small nerves that innervate the facet joints. In this way, we can hopefully identify which of these joints, if any, may be contributing to their pain. Informed consent for procedure was obtained. The patient was taken into the office fluoroscopy procedure room and placed prone on the table. A pillow was placed under the abdomen to reduce lumbar lordosis. Vital signs were closely monitored during the procedure. The skin over the area was prepped with Betadine X 3 and draped in usual sterile manner. Sterile technique was observed throughout procedure. Under biplanar fluoroscopic guidance, the target injection area of the L4, L5, Sacral Ala were targeted. A 25 gauge 31/2 inch spinal needle was then placed at the most medial and superior aspect of the transverse process near the "eye of the Rosalio dog". Aspiration for blood was negative. 1 cc of 0.5% Ropivacaine with a total of 20 mg of Depo-Medrol on each side was injected into the targeted areas separately. [place] were withdrawn intact. No complications were noted during the procedure. The patient tolerated the procedure well. The patient was placed in supine position and transferred to the recovery area for observation and remained stable until discharged home. Home discharge instructions were given to the patient by the staff. The patient will schedule a follow up as directed.
[2021-12-07] MEDS ORDERED: ROPIVACAINE 5 MG/ML 20 ML AMPULE ONE (08:38)
[2021-12-07] MEDS ORDERED: methylPREDNISolone ACETATE 40 MG/ML 1 ML VIAL ONE (08:38)
[2021-12-07 09:00] VITALS: BP 134/84; PULSE 64; RESP 15
--- NOTE | 2021-12-07 09:52 | FL ---
EXAMINATION TYPE: FL guided pain mgmt statistic DATE OF EXAM: 12/07/2021 FLUOROSCOPY Fluoroscopy time of 7 seconds was used during bilateral lumbar facet block. 6 image/s document/s the procedure.
== END 2021-12-07 09:08 | disposition home or self-care (01) ==
LOC: ORPAIN 07:21
PROVIDERS: ATTEND Hospitalist
DX: M47.816 Spondylosis without myelopathy or radiculopathy, lumbar region (principal); Z88.5 Allergy status to narcotic agent; Z88.6 Allergy status to analgesic agent; Z91.09 Other allergy status, other than to drugs and biological substances; Z79.84 Long term (current) use of oral hypoglycemic drugs; Z79.82 Long term (current) use of aspirin; Z79.899 Other long term (current) drug therapy; Z87.891 Personal history of nicotine dependence; Z82.49 Family history of ischemic heart disease and other diseases of the circulatory system; Z83.71 Family history of colonic polyps; Z80.0 Family history of malignant neoplasm of digestive organs; Z86.010 Personal history of colon polyps
CPT/HCPCS: 64493; 64494; J1030; J2795

== ENCOUNTER → 2021-12-19 | Outpatient (CLI) | payer BC ==
[2021-12-19 12:42] VITALS: BP 121/86; PULSE 72; RESP 18; TEMP 97.8
--- NOTE | 2021-12-19 12:43 | P.PAINPG ---
PQRS Measure Charge Sheet Comment: A 56 yr oldfemale with a history of severe and chronic low back pain secondary to lumbar degenerative disc diseases and lumbar spondylosis with facet arthropathy presents today for evaluation s/p BL facet block of the medial branches L4-L5, L5-S1. She states she experienced 100 % pain relief x 3 days s/p procedure. Pain level is currently at 4/10 in intensity, constant, dull/ achy in the lower back with sharp/ shooting towards the LEs. Pain is provoked by standing/walking for periods of 30 min or more. Pain is alleviated with chiropractic treatments with out relief, heat, home stretching regimen, topicals, medications (Tramadol), repositioning and rest. Interventional pain procedures completed include BL FB/MB L3-L5 x 2 Patient is currently on Tramadol prn Patient denies any side effects of the medication(s), denies excessive drowsiness or sleepiness, denies suicidal ideation and reports that the current pain medication is helping to control the pain and improve activities of daily living. Patient denies any motor or sensory deficits. Patient denies any fever or night sweats, denies any change in the bowel movements or urination. Physical Examination: -Constitutional: Cooperative. Not in acute distress . - Neurologic: Cranial nerve II to XII intact. No focal neurological deficits. - Psychatric: Alert & oriented x 3. Matching mood & appropriate affect. Judgment and insight intact. - Musculoskeletal: Cervical spine: Muscle bulk/ tone/ strength in the bilateral upper extremities normal Vertebral body tenderness to palpation over Spurling test positive Distraction test positive Facet loading test positive Thoracic spine Muscle bulk / tone/ strength in the bilateral paraspinal muscles normal Vertebral body tender to palpation over Facet loading test positive Lumbar spine: Motor bulk/ tone/ strength lower extremities , thigh and legs : 5/5 Deep tendon reflexes : Normal Knee Jerk. Normal Ankle Jerk . Vertebral body tenderness to palpation over Lumbar Facet Loading Test positive over BL L4, L5-, L5-S1 with paraspinal TTP Straight Leg Raise: positive at 30 degrees right side/ left side Gaenslen's Test positive Sacral spine : Severe tenderness over the Sacroiliac joint: right side / left side Range of motion: Flexion of the lumbar spine <60 degrees Range of motion: Extension of the lumbar spine <20 degrees Gaenslen's Test positive Paul's Test positive Seth test: positive right side / left side Thigh Thrust Test Sacral Thrust Test Assessment and plan: Chronic low back pain secondary to lumbar degenerative disc disease , lumbar spondylosis with facet arthropathy without myelopathy Recommendation of BL RFA L4-L5, L5-S1. Pt exhibited substantial and satisfactory pain relief with prior facet blocks of the medial branches. Risks, benefits of procedure discussed and pt verbalized understanding. Denies anticoagulant use or medical history of diabetes. All patient questions answered MAPS reviewed and it was appropriate. I have spent less than 30 minutes on patient care today. Dr Marie was available by phone for the evaluation of this patient. The time was used to review the medical records including relevant urine studies and Prescription history (MAPs), review of the available imaging, evaluation and examination of the patient, coordination of care with the medical staff and if applicable referring physicians, as well as creation of the medical record PQRS Narrative: Smoking Status Never smoker Hx Alcohol Use (MH) No Home Medications: Ambulatory Orders Atorvastatin [Lipitor] 10 mg PO DAILY 06/20/15 Citalopram Hydrobromide [CeleXA] 10 mg PO QAM 06/20/15 Losartan Potassium [Cozaar] 1 tab PO QAM 06/20/15 metFORMIN HCL [Glucophage] 1 tab PO BID 06/20/15 Latanoprost Ophth [Xalatan 0.005%] 1 drops BOTH EYES HS 06/25/17 Aspirin [Adult Low Dose Aspirin EC] 81 mg PO DAILY 01/25/19 Cholecalciferol [Vitamin D3 (125 Mcg = 5000 Iu)] 125 mcg PO Q48H 11/15/21 Omeprazole 1 tab PO DAILY 11/15/21 Controlled Substance Measures - Controlled Substance Measures Is patient prescribed a controlled substance at discharge?: No
== END ==
LOC: PNWHC3 12:16
PROVIDERS: ATTEND Specialist
DX: M51.36 Other intervertebral disc degeneration, lumbar region (principal); M47.816 Spondylosis without myelopathy or radiculopathy, lumbar region; G89.29 Other chronic pain; Z88.0 Allergy status to penicillin; Z88.5 Allergy status to narcotic agent; Z88.6 Allergy status to analgesic agent; Z88.9 Allergy status to unspecified drugs, medicaments and biological substances
CPT/HCPCS: 99211

== ENCOUNTER 2022-01-10 06:32 | Day surgery (SDC) | payer BC ==
[2022-01-08 11:08] VITALS: BMI 38.6
[~2022-01-10 06:32] MED LIST changes: +LIDOCAINE 1% (10MG/ML) FOR IV START INTRADERMA PRN; -LIDOCAINE 1% 20 ML VIAL (10MG/ML) FOR IV START INTRADERMA PRN
[2022-01-10 06:51] VITALS: RESP 16; TEMP 97
[2022-01-10 07:15] LABS: Glucose,Whole Blood 142 mg/dL (70-110)
[2022-01-10] MEDS ORDERED: ROPIVACAINE 5MG/ML 20ML VIAL ONE (07:49)
[2022-01-10] MEDS ORDERED: MIDAZOLAM 2 MG/2 ML VIAL ONE (07:49)
[2022-01-10] MEDS ORDERED: fentaNYL (PF) 50 MCG/ML 2 ML AMP ONE (07:49)
[2022-01-10] MEDS ORDERED: methylPREDNISolone ACETATE 40 MG/ML 1 ML VIAL ONE (07:49)
--- NOTE | 2022-01-10 08:21 | P.PCN ---
Date of Procedure: 01/10/22 Procedure(s) Performed: PREOPERATIVE DIAGNOSIS: 1-Lumbar Spondylosis with Facet Arthropathy without myelopathy. 2- Lumber degenerative disc disease. POSTOPERATIVE DIAGNOSIS: 1- Lumbar Spondylosis with Facet Arthropathy without myelopathy. 2- Lumber degenerative disc disease. PROCEDURES : Bilateral Radiofrequency thermocoagulation, L3 , L4 , and L5 medial branch, with fluoroscopic guidance (fluoroscopy images available in the radiology department) ( to denervate the facet joint at Bilateral L4-5 ,and L5-S1 levels ). ANESTHESIA: Moderate sedation with intravenous versed 2 mg and fentaneyl 100 mcg, and local infiltration with Ropivacaine 0.5 % . Sedation start time 07:53. Sedation is stopped time 08:18 EBL: Minimal PROCEDURE INDICATION: The patient with low back pain secondary to lumbar facet arthropathy who had more than 50% relief of her pain with previous diagnostic lumbar medial branch block with bupivacaine. PROCEDURE DESCRIPTION / TECHNIQUE: The patient was seen and identified in the preoperative area. Risks, benefits, complications, including but not limited to risk of infection ,bleeding , allergic reactions to the medications and no complete pain releife , and alternatives were discussed with the patient, the patient agreed to proceed with the procedure and signed the consent. IV was started. Vital signs remained stable throughout the procedure. Patient was taken to the OR and time out was completed. The patient was placed in the prone position on the procedure table. The lumber area was prepped and draped in the usual sterile fashion. . Vital signs were closely monitored during the procedure .IV sedation was used during the procedure to decrease patients anxiety. Using AP and then oblique fluoroscopy, the ``eye of the Rosalio dog corresponding to the connection between the superior and transverse articular processes of right L3, L4, and L5 were identified, marked, and localized with 1% lidocaine. Subsequently, a [id number] radiofrequency cannula with a 10- mm active tip was advanced guided by fluoroscopy to each of the``eyes of the Rosalio dog at right L3, L4, and L5. Each site then underwent sensory testing at 50 Hz and 0 to 1 volt and motor testing at 2.5 Hz and 0 to 3 volt with local stimulation, but no radicular symptoms down the legs. Thereafter each sites underwent radiofrequency thermocoagulation at 80 degrees celsius for 90 seconds after injecting 0.5 ml of PF Ropivacaine 1ml, then after the thermocoagulation done , 1 ml of the block solution containing Depo-Medrol 20 mg and 3 ml of Ropivacaine 0.5% was injected at the right L3 , L4 , and L5 , levels after negative aspiration of CSF and blood and with no paresthesias. Cannulas were retracted while injecting lidocaine 1% until the needle is out. The same procedure was repeated at the level of Left L3, L4, and L5 levels. At the end of the procedure, the skin was cleansed and bandages were applied. COMPLICATIONS: No acute complications. DISPOSITION / PLANS: The patient was placed in a supine position and transferred to the recovery area in a stable condition for observation and was discharged from the recovery room after meeting discharge criteria. Home discharge instructions given to the patient by the staff. The patient was reexamined prior to discharge. The patient will schedule a follow up in the clinic in 2-4 weeks.
[2022-01-10] MEDS ORDERED: IV FLUID CONTINUATION 400 ML IV ONE (08:28)
--- NOTE | 2022-01-10 08:31 | FL ---
Intraoperative/procedural fluoroscopic services were provided. Total fluoroscopy time is 17 seconds w ith a total of 6 submitted images to PACS. Please see the operative/procedural note for further detai ls.
[2022-01-10 08:54] VITALS: BP 132/75; PULSE 67
== END 2022-01-10 09:03 | disposition home or self-care (01) ==
LOC: ORPAIN 06:32
PROVIDERS: ATTEND Specialist
DX: M47.816 Spondylosis without myelopathy or radiculopathy, lumbar region (principal); M51.36 Other intervertebral disc degeneration, lumbar region; Z88.5 Allergy status to narcotic agent; Z88.6 Allergy status to analgesic agent; Z91.09 Other allergy status, other than to drugs and biological substances; Z79.899 Other long term (current) drug therapy; Z79.84 Long term (current) use of oral hypoglycemic drugs; Z79.82 Long term (current) use of aspirin; Z87.891 Personal history of nicotine dependence; Z82.49 Family history of ischemic heart disease and other diseases of the circulatory system; Z83.3 Family history of diabetes mellitus; Z83.71 Family history of colonic polyps; Z80.0 Family history of malignant neoplasm of digestive organs
CPT/HCPCS: 64635; 64636 ×2; J2250; J1030; J3010; J2795; 99152; 99153

== ENCOUNTER → 2022-01-28 | Outpatient (CLI) | payer BC ==
[2022-01-28 12:34] VITALS: BP 130/83; PULSE 56; RESP 18; TEMP 98.2
--- NOTE | 2022-01-28 14:28 | P.PAINPG ---
PQRS Measure Charge Sheet Comment: A 56 yr old female with a history of severe and chronic low back pain secondary to lumbar degenerative disc diseases and lumbar spondylosis with facet arthropathy presents today for evaluation s/p BL RFA L3-L5. Pt states she received 100% pain relief s/p procedure. Pain level is currently at 0/10 in intensity without radiating pain. Pain is provoked by standing/ walking for excessive periods of time. Pain is alleviated with injections, OTC medications and rest. Interventional pain procedures completed include BL RFA L3-L5 Patient is currently on OTC meds Patient denies any side effects of the medication(s), denies excessive drowsiness or sleepiness, denies suicidal ideation and reports that the current pain medication is helping to control the pain and improve activities of daily living. Patient denies any motor or sensory deficits. Patient denies any fever or night sweats, denies any change in the bowel movements or urination. Physical Examination: -Constitutional: Cooperative. Not in acute distress . - Neurologic: Cranial nerve II to XII intact. No focal neurological deficits. - Psychatric: Alert & oriented x 3. Matching mood & appropriate affect. Judgment and insight intact. - Musculoskeletal: Cervical spine: Muscle bulk/ tone/ strength in the bilateral upper extremities normal Vertebral body tenderness to palpation over Spurling test positive Distraction test positive Facet loading test positive Thoracic spine Muscle bulk / tone/ strength in the bilateral paraspinal muscles normal Vertebral body tender to palpation over Facet loading test positive Lumbar spine: Motor bulk/ tone/ strength lower extremities , thigh and legs : 5/5 Deep tendon reflexes : Normal Knee Jerk. Normal Ankle Jerk . Vertebral body tenderness to palpation over Lumbar Facet Loading Test positive Straight Leg Raise: positive at 30 degrees right side/ left side Gaenslen's Test positive Sacral spine : Severe tenderness over the Sacroiliac joint: right side / left side Range of motion: Flexion of the lumbar spine <60 degrees Range of motion: Extension of the lumbar spine <20 degrees Gaenslen's Test positive Paul's Test positive Steh test: positive right side / left side Thigh Thrust Test Sacral Thrust Test Assessment and plan: Chronic low back pain secondary to lumbar degenerative disc disease , lumbar spondylosis with facet arthropathy without myelopathy Pt received sufficient and optimal pain relief s/p procedure. She will continue to follow home pain mgmt modalities at this time and may return to our clinic on an as needed basis. Risks, benefits of procedure discussed and pt verbalized understanding. Denies anticoagulant use or medical history of diabetes. All patient questions answered I have spent less than 30 minutes on patient care today. Dr Marie was available by phone for the evaluation of this patient. The time was used to review the medical records including relevant urine studies and Prescription history (MAPs), review of the available imaging, evaluation and examination of the patient, coordination of care with the medical staff and if applicable referring physicians, as well as creation of the medical record PQRS Narrative: Smoking Status Never smoker Hx Alcohol Use (MH) No Home Medications: Ambulatory Orders Atorvastatin [Lipitor] 10 mg PO DAILY 06/20/15 Citalopram Hydrobromide [CeleXA] 10 mg PO QAM 06/20/15 Losartan Potassium [Cozaar] 1 tab PO QAM 06/20/15 metFORMIN HCL [Glucophage] 1 tab PO BID 06/20/15 Latanoprost Ophth [Xalatan 0.005%] 1 drops BOTH EYES HS 06/25/17 Aspirin [Adult Low Dose Aspirin EC] 81 mg PO DAILY 01/25/19 Cholecalciferol [Vitamin D3 (125 Mcg = 5000 Iu)] 125 mcg PO Q48H 11/15/21 Omeprazole 1 tab PO DAILY 11/15/21 Glimepiride [Amaryl] 2 mg PO AC-BRKFST 01/08/22 Controlled Substance Measures - Controlled Substance Measures Is patient prescribed a controlled substance at discharge?: No
== END ==
LOC: PNWHC3 12:16
PROVIDERS: ATTEND Specialist
DX: M51.36 Other intervertebral disc degeneration, lumbar region (principal); M47.816 Spondylosis without myelopathy or radiculopathy, lumbar region; G89.29 Other chronic pain; Z88.0 Allergy status to penicillin; Z88.6 Allergy status to analgesic agent; Z88.5 Allergy status to narcotic agent; Z88.9 Allergy status to unspecified drugs, medicaments and biological substances
CPT/HCPCS: 99211

== ENCOUNTER → 2022-04-03 | Outpatient (CLI) | payer BC ==
[2022-04-03 08:02] VITALS: BP 130/84; PULSE 75; RESP 18
--- NOTE | 2022-04-03 13:53 | P.PAINPG ---
PQRS Measure Charge Sheet Comment: A 56 yr old female with a history of severe and chronic low back pain secondary to lumbar degenerative disc diseases and lumbar spondylosis with facet arthropathy without myelopathy presents today for evaluation s/p BL MBB L3-L5. Pt states she experienced 100% pain relief x 4 days s/p procedure. Pain level is currently at 3/10 in intensity, constant, localized in the R lower lumbar spine, achy in character w shooting towards the R thigh. Pain is provoked as high as 9/10 by sitting for periods of 20 min or more. Pain is alleviated with home exercise daily, heat, medications (Ibu, Robaxin from Dr Kurtz), walking, repositioning and rest. Interventional pain procedures completed include BL MBB L3-L5 x1 Patient is currently on Ibuprofen, Robaxin Patient denies any side effects of the medication(s), denies excessive drowsiness or sleepiness, denies suicidal ideation and reports that the current pain medication is helping to control the pain and improve activities of daily living. Patient denies any motor or sensory deficits. Patient denies any fever or night sweats, denies any change in the bowel movements or urination. Physical Examination: -Constitutional: Cooperative. Not in acute distress . - Neurologic: Cranial nerve II to XII intact. No focal neurological deficits. - Psychatric: Alert & oriented x 3. Matching mood & appropriate affect. Judgment and insight intact. - Musculoskeletal: Cervical spine: Muscle bulk/ tone/ strength in the bilateral upper extremities normal Vertebral body tenderness to palpation over Spurling test positive Distraction test positive Facet loading test positive Thoracic spine Muscle bulk / tone/ strength in the bilateral paraspinal muscles normal Vertebral body tender to palpation over Facet loading test positive Lumbar spine: Motor bulk/ tone/ strength lower extremities , thigh and legs : 5/5 Deep tendon reflexes : Normal Knee Jerk. Normal Ankle Jerk . Vertebral body tenderness to palpation over Lumbar Facet Loading Test positive Straight Leg Raise: positive at 30 degrees right side/ left side Gaenslen's Test positive Sacral spine : Severe tenderness over the Sacroiliac joint: right side / left side Range of motion: Flexion of the lumbar spine <60 degrees Range of motion: Extension of the lumbar spine <20 degrees R Gaenslen's Test positive Seth test: positive right side / left side Thigh Thrust Test Sacral Thrust Test R Assessment and plan: Chronic low back pain secondary to lumbar degenerative disc disease, spondylosis with facet arthropathy without myelopathy, R Sacroiliitis Recommendation of R SI injection. May need a series of injections, up to every 3 mo, for optimal pain relief. Risks, benefits of procedure discussed and pt verbalized understanding. Admits to anticoagulant use or medical history of diabetes. Protocol for discontinuation/ continuation of medications delma procedure discussed. All patient questions answered I have spent less than 30 minutes on patient care today. Dr Marie was available by phone for the evaluation of this patient. The time was used to review the medical records including relevant urine studies and Prescription history (MAPs), review of the available imaging, evaluation and examination of the patient, coordination of care with the medical staff and if applicable referring physicians, as well as creation of the medical record PQRS Narrative: Smoking Status Never smoker Hx Alcohol Use (MH) No Home Medications: Ambulatory Orders Atorvastatin [Lipitor] 10 mg PO DAILY 06/20/15 Citalopram Hydrobromide [CeleXA] 10 mg PO QAM 06/20/15 Losartan Potassium [Cozaar] 1 tab PO QAM 06/20/15 metFORMIN HCL [Glucophage] 1 tab PO BID 06/20/15 Latanoprost Ophth [Xalatan 0.005%] 1 drops BOTH EYES HS 06/25/17 Aspirin [Adult Low Dose Aspirin EC] 81 mg PO DAILY 01/25/19 Cholecalciferol [Vitamin D3 (125 Mcg = 5000 Iu)] 125 mcg PO Q48H 11/15/21 Omeprazole 1 tab PO DAILY 11/15/21 Glimepiride [Amaryl] 2 mg PO AC-BRKFST 01/08/22 Controlled Substance Measures - Controlled Substance Measures Is patient prescribed a controlled substance at discharge?: No
== END ==
LOC: PNWHC3 07:17
PROVIDERS: ATTEND Specialist
DX: M47.816 Spondylosis without myelopathy or radiculopathy, lumbar region (principal); M51.36 Other intervertebral disc degeneration, lumbar region; G89.29 Other chronic pain; M46.1 Sacroiliitis, not elsewhere classified; E11.9 Type 2 diabetes mellitus without complications; Z79.01 Long term (current) use of anticoagulants; Z79.84 Long term (current) use of oral hypoglycemic drugs; Z88.0 Allergy status to penicillin; Z91.048 Other nonmedicinal substance allergy status; Z88.6 Allergy status to analgesic agent; Z88.5 Allergy status to narcotic agent
CPT/HCPCS: 99211

== ENCOUNTER 2022-04-18 10:17 | Day surgery (SDC) | payer BC ==
[2022-04-16 16:00] VITALS: BMI 38.9
[2022-04-18 10:26] VITALS: TEMP 96.7
[2022-04-18 10:39] LABS: Glucose,Whole Blood 116 mg/dL (70-110)
[2022-04-18] MEDS ORDERED: methylPREDNISolone ACETATE 40 MG/ML 1 ML VIAL ONE (10:54)
[2022-04-18] MEDS ORDERED: ROPIVACAINE 5 MG/ML 20 ML AMPULE ONE (10:54)
--- NOTE | 2022-04-18 11:04 | P.PCN ---
Date of Procedure: 04/18/22 Procedure(s) Performed: Procedure= Right sacroiliac joints steroid injection under fluoroscopy guidance (fluoroscopy image stored on file in the radiology Department ) Preoperative diagnosis= 1- right sacroiliitis 2-lumbar degenerative disc disease 3-lumbar facet arthropathy Postoperative diagnosis=Same as preop Diagnosis . Complication = none Condition= stable Anesthesia=local anesthesia with ropivacaine 0.5% 2 mL only Indication for the procedure= patient complaining of low back pain , examination was positive for severe tenderness over the right sacroiliac joints , and patient diagnosed with right sacroiliitis, for this reason she was good candidate for right sacroiliac joint steroid injection. Description of the procedure= procedure risk and benefits discussed with the patient, including but not limited, risk of infection and bleeding, and ALLERGIC reaction to the medication and not complete pain relief and patient agreed with the preceding patient taken to the operating room, placed in prone position or standard monitors applied to the patient then after induction of anesthesia back prepped with chlorhexidine 3 times , Then under strict sterile technique, first I did the right sacroiliac joint the which was identified under fluoroscopy guidance been local infiltration of the skin and subcu interstitial with lidocaine 1% then 25-gauge Quincke Needle advanced slowly under fluoroscopy and placed in the right sacroiliac joint needle placement confirmed with AP and oblique and lateral view and after appropriate needle placement confirmed and after negative aspiration, or heme , then Ropivacaine 0.5% 5 mL, and 40 mg of Depo-Medrol mixed together and injected in the right sacroiliac joint after negative aspiration patient tolerated the procedure well without any complication.
[2022-04-18 11:09] VITALS: RESP 15
--- NOTE | 2022-04-18 11:13 | FL ---
Intraoperative/procedural fluoroscopic services were provided for right SI joint injection. Total flu oroscopy time is 7 seconds with a total of 1 submitted image to PACS. Please see the operative note f or further details.
[2022-04-18 11:21] VITALS: BP 129/85; PULSE 63
== END 2022-04-18 11:35 | disposition home or self-care (01) ==
LOC: ORPAIN 10:17
PROVIDERS: ATTEND Specialist
DX: M46.1 Sacroiliitis, not elsewhere classified (principal); M51.36 Other intervertebral disc degeneration, lumbar region; M47.816 Spondylosis without myelopathy or radiculopathy, lumbar region
CPT/HCPCS: 27096; J1030; J2795

== ENCOUNTER → 2022-04-24 | Outpatient (CLI) | payer BC ==
[2022-04-24 11:22] VITALS: BP 138/87; PULSE 62; RESP 18; TEMP 98.1
--- NOTE | 2022-04-24 11:56 | P.PN ---
Subjective Progress Note Date: 04/24/22 This is Follow-up visit for this 56 years old female with a chronic history of severe low back pain, patient diagnosed with lumbar spondylosis and lumbar facet arthropathy, and right sacroiliitis, previously we had done RFA of the medial branch lumbar area at L4 5 and L5-S1, and recently we did right-sided sacroiliac joint steroid injection, she reported that she got excellent pain relief for short term and she is currently having, in the low back area with radiation to the right buttock she denies any motor or sensory deficit, denies any fever or night sweats and she denies any change in bowel movement or urination, she reported the pain in the right buttock area is constant and increases with any activity interference with the quality of life Objective - Vital Signs Vital signs: Vital Signs Temp 98.1 F 04/24/22 11:10 Pulse 62 04/24/22 11:10 Resp 18 04/24/22 11:10 BP 138/87 04/24/22 11:10 Pulse Ox 99 04/24/22 11:10 FiO2 Intake & Output 04/23/22 04/24/22 04/24/22 18:59 06:59 18:59 Weight 98.883 kg - Exam Physical Examinations : -Constitutiona : Cooperative , not in acute distress . -HEENT : nech : supple , no Lymphadenopathy , normal thyroid size . : eyes : no ptosis , no icterus, no photophobia . - neurologic : Cranial nerve II to XII intact , no focal neurological deffecit . -psychatric : alert , oriented X 3 , appropriate affect , intact judgment and insight . -Lymphatic : no Lymphadenopathy . - musculoskeltal : Lumber spine moter stegnth lower extremities ,thigh and legs 5/5 Right side , 5/5 Left side deep tendon reflexes : normal Knee Jerk , normal ankle Jerk lumber facet Loading Test =positive Right , positive Left Range of motion of the lumbar spine Flexion 30 degrees, extension 10 degrees strait leg raising test = negative bilaterally Fabere test= negative bilaterally. Sever tenderness over the Sacroiliac joint on the Right. Gaenslen test= positive right . Seated flexion test= positive right . Distraction test= positive right Sacroiliac compression test= positive right. Assessment and Plan Plan: Assessment and plan= chronic low back pain secondary to lumbar degenerative disc disease , lumbar spondylosis with lumbar facet arthropathy . Right sacroiliitis she had good pain relief after right sacroiliac joint steroid injection ( short term ). Patient could benefit from voltaren gel 1 % to be applied to the right buttock area 3 times daily. She'll follow up in the pain clinic in 4 weeks Time with Patient: Less than 30
== END | disposition home or self-care (01) ==
LOC: PNWHC3 09:28
PROVIDERS: ATTEND Anesthesiology
DX: M51.36 Other intervertebral disc degeneration, lumbar region (principal); M47.896 Other spondylosis, lumbar region; M46.96 Unspecified inflammatory spondylopathy, lumbar region
CPT/HCPCS: 99211

== ENCOUNTER → 2022-08-27 | Outpatient (CLI) | payer BC | END | disposition home or self-care (01) | LOC: LABPAT 10:52 | PROVIDERS: ATTEND Orthopaedic Surgery | DX: Z01.812 Encounter for preprocedural laboratory examination (principal); Z22.322 Carrier or suspected carrier of Methicillin resistant Staphylococcus aureus; M17.12 Unilateral primary osteoarthritis, left knee | CPT/HCPCS: 87070 ==

== ENCOUNTER → 2022-08-28 | Outpatient (CLI) | payer BC ==
[2022-08-28 18:28] LABS: INR 0.91 (0.90-1.11); Prothrombin Time 10.3 sec (9.9-11.9)
== END | disposition home or self-care (01) ==
LOC: LABPAT 11:05
PROVIDERS: ATTEND Orthopaedic Surgery
DX: Z01.812 Encounter for preprocedural laboratory examination (principal); M17.12 Unilateral primary osteoarthritis, left knee
CPT/HCPCS: 85610

== ENCOUNTER 2022-09-02 08:25 | Observation (INO) | payer BC ==
[2022-08-27 15:50] VITALS: BMI 39.4
--- NOTE | 2022-09-01 21:01 | HP ---
HISTORY AND PHYSICAL DATE OF SURGERY: 09/02/2022 HISTORY OF PRESENT ILLNESS: Cassie Hartley is a 56-year-old patient seen with symptomatic left knee osteoarthritis. We discussed options for treatment. She elected to proceed with left total knee arthroplasty. Consent regarding the procedure was obtained. Medical clearance was provided by Dr. Kurtz. PAST MEDICAL HISTORY: Hypertension, hyperlipidemia, ove-msiipob-qablavexh diabetes. PAST SURGICAL HISTORY: Total knee arthroplasty, hysterectomy, herniorrhaphy, and cholecystectomy. DAILY MEDICATIONS: 1. Atorvastatin. 2. Losartan. 3. Metformin. 4. Glimepiride. 5. Omeprazole. ALLERGIES: Penicillin, nickel. SOCIAL HISTORY: She denies tobacco use. PHYSICAL EVALUATION OF THE LEFT KNEE: Her range of motion is full, 0-110 degrees. Tenderness along the medial joint line. Crepitus, medial patellofemoral compartments with range of motion. Pain with patellofemoral compression. Ligaments stable. Hip rotation without pain. Distal neurovascular exam is intact. LEFT KNEE RADIOGRAPHS: Left knee radiographs reveal severe osteoarthritic changes. IMPRESSION: 1. Left knee osteoarthritis. 2. Hypertension. 3. Hyperlipidemia. 4. Zes-wayaxme-pphztuvyu diabetes. PLAN: Left total knee arthroplasty. MMODL / IJN: [id number] /
[~2022-09-02 08:25] MED LIST changes: +ACETAMINOPHEN TAB 500 MG TAB PO PRN; +DEXAMETHASONE SOD PHOSPHATE 4 MG/ML 1 ML VIAL IV ONE; -LIDOCAINE 1% (10MG/ML) FOR IV START INTRADERMA PRN; +MELOXICAM 7.5 MG TAB PO PRN; +MIDAZOLAM 2 MG/2 ML VIAL IV PRN; +ONDANSETRON 4 MG/2 ML VIAL IVP ONE; +SCOPOLAMINE 1 MG/72 HR PATCH TRANSDERM ONE; +TRANEXAMIC ACID IN NACL,ISO-OS 1,000 MG in SALINE 1 100ML.BAG IVPB PRN
[2022-09-02 09:05] LABS: Glucose,Whole Blood 124 mg/dL (70-110)
[2022-09-02] MEDS ORDERED: MIDAZOLAM 2 MG/2 ML VIAL IVP ONE (09:26)
[2022-09-02] MEDS ORDERED: fentaNYL (PF) 50 MCG/ML 2 ML AMP IVP ONE (09:26)
[2022-09-02] MEDS ORDERED: KETAMINE 10 MG/ML 20 ML VIAL ONE (09:52)
[2022-09-02] MEDS ORDERED: PROPOFOL 10 MG/ML 20 ML VIAL IV ONE (09:52)
[2022-09-02] MEDS ORDERED: fentaNYL (PF) 50 MCG/ML 2 ML AMP ONE (09:52)
[2022-09-02] MEDS ORDERED: ROPIVACAINE 5 MG/ML 30 ML VIAL ONE (09:52)
[2022-09-02] MEDS ORDERED: SODIUM CHLORIDE 0.9% (PF) 10 ML VIAL ONE (09:52)
[2022-09-02] MEDS ORDERED: MIDAZOLAM 2 MG/2 ML VIAL ONE (09:52)
[2022-09-02] MEDS ORDERED: TRANEXAMIC ACID IN NACL,ISO-OS 1,000 MG/100 ML BAG ONE (09:52)
[2022-09-02] MEDS ORDERED: LIDOCAINE 2% INJ 20 MG/ML (2 ML VIAL) ONE (09:52)
[2022-09-02] MEDS ORDERED: ceFAZolin 1,000 MG in SODIUM CHLORIDE 0.9% 1,000 ML IRRIGATION ONE (10:23)
--- NOTE | 2022-09-02 11:49 | P.OP ---
Date of Procedure: 09/02/22 Preoperative Diagnosis: Left knee osteoarthritis Postoperative Diagnosis: Left knee osteoarthritis Procedure(s) Performed: Left total knee arthroplasty Implants: 1. [employer] cruciate retaining size 4 left cemented femur 2. [employer] T3 cemented tibial baseplate 3. Aesculap 12 mm polyethylene tibial insert 4. Aesculap size 3 all polyethylene cemented patella Anesthesia: regional (Adductor canal catheter, Ipack block), spinal Surgeon: Markie Dyson Lead Burner #1: Emir Baird Estimated Blood Loss (ml): 45 Pathology: other (Bone) Condition: stable Disposition: PACU Indications for Procedure: 56-year-old patient seen with symptomatic left knee osteoarthritis. After having treatment options discussed, she elected to proceed with total knee arthroplasty. Operative Findings: see description of procedure Description of Procedure: Patient was taken to the operative suite after having an adductor canal catheter placed by the department of anesthesia. Patient underwent a spinal anesthetic by the department of anesthesia. Patient was given preoperative IV intake antibiotics and TXA. A well-padded tourniquet was placed about the left lower extremity. The lower extremity was then prepped and draped in the normal sterile orthopedic fashion. The extremity was elevated, a tourniquet was insufflated to 300. A standard anterior incision was made sharply through skin. Dissection was taken down through the subcutaneous soft tissues down to the extensor mechanism. A medial arthrotomy was performed, patella was everted and knee was flexed. There was advanced osteoarthritis noted. I introduced my distal intramedullary femoral drill. I then introduced the distal femoral cutting jig. Sundeep CARLOS secured the cutting jig with 2 pins. I held retractors in position while Sundeep CARLOS performed the distal femoral resection through the guide area we now removed her distal femoral cutting guide. We now placed our 4-in-1 femoral cutting block and positioned and it was secured with 2 pins by Sundeep CARLOS while I held the block in position. The distal femoral finishing was now completed. A proximal tibial cutting guide was positioned. I held the guide in the appropriate position with both hands well Sundeep CARLOS inserted stabilizing pins into the guide. Proximal tibial cut was made. We now placed a trial femoral component into position, along with an appropriate size tibial tray and insert. We now took the knee through range of motion and had full extension good flexion and good overall soft tissue balance noted. The patella was everted and stabilized with 2 towel clips held by Sundeep CARLOS while I performed a flush with patellar quad tendon utilizing a fresh sawblade. We templated the patella, appropriate drill holes were made. An appropriate trial patella was positioned, knee was taken through full range of motion with the patella tracking very nicely. The trial patella was removed. Drill holes were made through the femoral component. All trial components were removed after marking off the appropriate rotation of the tibia. Retractors were now positioned along the proximal tibia. An appropriate keel punch was made with the appropriate size tibial guide by myself on Sundeep CARLOS assisted by holding retractors. At this point appropriate size implants were chosen and opened. The joint was irrigated copiously with pulse lavage mechanical irrigation. The posterior capsule was infiltrated with local analgesic. The wound was irrigated with pulse lavage mechanical irrigation. We mixed antibi otic methylmethacrylate. We placed the knee into flexion. We placed multiple retractors assisted by Sundeep CARLOS to expose the proximal tibia. Once the methyl methacrylate was ready, the tibial component was cemented into place removing any excess methylmethacrylate form by both myself and Sundeep CARLOS. The femoral component was cemented into place removing the removing any excess methylmethacrylate performed by both myself and Sundeep CARLOS. We then inserted the appropriate size polyethylene tibial insert. We made sure that it was locked into position. We took the knee into full extension, and then back in a flexion making sure we had removed any excess methylmethacrylate. The patellar component was then cemented down and secured with clamp. Excess methylmethacrylate removed. We kept the knee in full extension, patellar clamp in position until methylmethacrylate had hardened. Once it had hardened the patellar clamp was removed. The knee was taken through full range of motion. The patella tracked nicely. There was good soft tissue balancing. The tourniquet was now released. Additional hemostasis was achieved via electrocautery. A second gram of TXA was given. The wound again was irrigated with pulse lavage mechanical irrigation. The extensor mechanism was repaired with Ethibond suture. We checked the repair with range of motion and it was stable. The subcutaneous soft tissues were repaired with Vicryl in layers. The skin was approximated with pernio/Dermabond. Sterile dressings were applied followed by loose web roll and Fernando bandage. The patient was transferred to a bed, and taken to recovery in stable and satisfactory condition. Sundeep CARLOS assisted with this complex procedure.
[2022-09-02] MEDS ORDERED: HYDROmorphone 0.5 MG/0.5 ML SYRINGE IVP PRN (11:50)
[2022-09-02] MEDS ORDERED: NALOXONE 0.4 MG/ML 1 ML VIAL IV PRN (11:50)
[2022-09-02] MEDS ORDERED: ONDANSETRON 4 MG/2 ML VIAL IVP PRN (11:50)
[2022-09-02] MEDS ORDERED: HYDROcodone/APAP 5-325MG 1 EACH TAB PO PRN (11:50)
[2022-09-02] MEDS ORDERED: ROPIVACAINE 1,100 MG, SODIUM CHLORIDE 0.9% 500 ML 330 ML, EMPTY PAIN BALL 1 EACH MISCELLANE PRN ×2 (12:15)
[2022-09-02] MEDS: HYDROmorphone 0.5 MG/0.5 ML SYRINGE IVP PRN ×7 (12:50→21:26)
[2022-09-02] MEDS: LACTATED RINGERS 1,000 ML IV SCH ×2 (12:53→16:11)
--- NOTE | 2022-09-02 12:57 | XR ---
EXAMINATION TYPE: XR knee limited LT DATE OF EXAM: 09/02/2022 COMPARISON: NONE HISTORY: 56-year-old female evaluation of postoperative abnormality and alignment. TECHNIQUE: 2 views FINDINGS: Generalized soft tissue swelling. Soft tissue air related to recent operation. Intra-articular air is also noted. A tiny 2 mm hyperdense obinna is noted in the region of the suprapatellar pouch, likely i nadvertent surgical metal debris. Alignment grossly anatomic. No periprosthetic fracture. IMPRESSION: Uncomplicated postoperative appearance left total knee arthroplasty. A tiny 2 mm hyperdense obinna not ed in the region of the suprapatellar pouch, likely some inadvertent surgical metal debris.
[2022-09-02 12:58] LABS: Glucose,Whole Blood 115 mg/dL (70-110)
--- NOTE | 2022-09-02 13:33 | P.ANPRN ---
Procedure Note - Anesthesia - Nerve Block Performed Left Adductor Canal Infusion Time Out Performed: Yes (0925) Date of Procedure: 09/02/22 Procedure Start Time: : Procedure Stop Time: : Location of Patient: PreOp Indication: Acute Post-Operative Pain, Requested by Surgeon Specifically requested for management of pain by DrGermán: Markie Dyson Sedation Type: Sedate with meaningful contact maintained Preparation: Sterile Prep, Sterile Dressing Position: Supine Catheter Depth at Skin (cm): 8 Catheter: Indwelling Needle Types: Pajunk Needle Gauge: 18 Ultrasound used to visualize needle placement: Yes Ultrasound used to observe medication spread: Yes Injectate: 0.5% Ropivacaine (see comment for volume) (15cc+ 5cc nacl pf) Blood Aspirated: No Pain Paresthesia on Injection Noted: No Resistance on Injection: Normal Image Stored and Saved: Yes Events: Uneventful and Well Tolerated
--- NOTE | 2022-09-02 13:34 | P.ANPRN ---
Procedure Note - Anesthesia - Nerve Block Performed Left iPack Single Time Out Performed: Yes (0925) Date of Procedure: 09/02/22 Procedure Start Time: : Procedure Stop Time: :34 Location of Patient: PreOp Indication: Acute Post-Operative Pain, Requested by Surgeon Specifically requested for management of pain by DrGermán: Markie Dyson Sedation Type: Sedate with meaningful contact maintained Preparation: Sterile Prep Position: Supine Catheter: None Needle Types: Pajunk Needle Gauge: 21 Ultrasound used to visualize needle placement: Yes Ultrasound used to observe medication spread: Yes Injectate: 0.5% Ropivacaine (see comment for volume) (15cc +5cc nacl pf) Blood Aspirated: No Pain Paresthesia on Injection Noted: No Resistance on Injection: Normal Image Stored and Saved: Yes Events: Uneventful and Well Tolerated
[2022-09-02] MEDS: fentaNYL (PF) 50 MCG/ML 2 ML AMP IV PRN ×2 (14:04→14:11)
[2022-09-02] MEDS ORDERED: MEPERIDINE 50 MG/ML SYRINGE IVP ONE ×2 (15:37→15:44)
[2022-09-02] MEDS: HYDROcodone/APAP 7.5-325MG 1 EACH TAB PO PRN (16:56)
[2022-09-02 17:00] LABS: Glucose,Whole Blood 142 mg/dL (70-110)
[2022-09-02] MEDS: HYDROmorphone 1 MG/ML 1 ML SYRINGE IVP PRN (18:09)
[2022-09-02] MEDS ORDERED: EYE BOTH EYES SCH (19:45)
[2022-09-02 20:33] LABS: Glucose,Whole Blood 201 mg/dL (70-110)
[2022-09-02] MEDS: metFORMIN 500 MG TAB PO SCH (20:48)
[2022-09-02] MEDS: SENNOSIDES-DOCUSATE SODIUM 1 EACH TAB PO SCH (20:48)
[2022-09-02] MEDS: INSULIN ASPART (NovoLOG) 100 UNIT/ML VIAL SQ SCH (20:48)
[2022-09-03] MEDS: HYDROmorphone 0.5 MG/0.5 ML SYRINGE IVP PRN ×2 (01:00→05:09)
[2022-09-03 06:07] LABS: Glucose,Whole Blood 142 mg/dL (70-110)
--- NOTE | 2022-09-03 07:47 | P.CONS ---
History of Present Illness - Reason for Consult Consult date: 09/02/22 Medical management Requesting physician: Markie Dyson - Chief Complaint Status post left total knee arthroplasty - History of Present Illness HISTORY OF PRESENT ILLNESS: This is a 56-year-old female with a previous medical history significant for hypertension and hypertensive cardio vascular disease, hyperlipidemia, diabetes mellitus type 2, obesity with affective sleep apnea, currently on CPAP, history of anxiety disorder, history of DVT of the right lower x-ray post right total knee arthroplasty, patient underwent left total knee arthroplasty that was done successfully by Dr. Dyson and I was asked to see the patient for postoperative medical management REVIEW OF SYSTEMS: Constitutional: No documented fever, no chills, no night sweats. No weight change. No weakness, fatigue or lethargy. No daytime sleepiness. EENT: No headache. No blurred vision or double vision, no loss of vision. No loss of Hearing, no ringing in the ears, no dizziness. No nasal drainage or congestion. No epistaxis. No sore throat. Lungs: No shortness of breath, no cough, no sputum production. No wheezing. Reports dyspnea with activity. Cardiovascular: No chest pain, no lower extremity edema. No palpitations. No paroxysmal nocturnal dyspnea. No orthopnea. No lightheadedness or dizziness. No syncopal episodes. Abdominal: Reports abdominal pain. No nausea, vomiting. No diarrhea. No constipation. No bloody or tarry stools reports loss of appetite. Genitourinary: No dysuria, increased frequency, urgency. No urinary retention. Musculoskeletal: No myalgias. No muscle weakness, no gait dysfunction, no frequent falls. No back pain. No neck pain. Integumentary: No wounds, no lesions. No rash or pruritus. No unusual bruising. No change in hair or nails. Neurologic: No aphasia. No facial droop. No change in mentation. No head injury. No headache. No paralysis. No paresthesia. Psychiatric: No depression. No anxiety. No mood swings. Endocrine: No abnormal blood sugars. No weight change. PAST MEDICAL HISTORY: Hypertension and hypertensive cardiovascular disease Hyperlipidemia. Diabetes mellitus type 2. Major depressive disorder. GERD. Glaucoma. Obesity with obstructive sleep apnea. History of DVT of the right lower extremity PAST SURGICAL HISTORY: Right knee replacement 2018 Right inguinal hernia repair 2007 Total hysterectomy 2004 Right carpal tunnel release 2001 Cholecystectomy 2015 Bilateral laser eye surgery due to glaucoma. Colonoscopy 01/29/2019 SOCIAL HISTORY: Patient is a life long nonsmoker, she drinks occasionally, she denies any drug use or abuse, she lives with her . FAMILY HISTORY: Father at age of 72 from pneumonia and had history of diabetes mother at age of 74 from congestive heart failure she was diagnosed with diabetes and had pacemaker, patient has one brother and 2 sisters and she has one son and one daughter no major medical problems. PHYSICAL EXAMINATION: General: 56-year-old female laying down in bed in no apparent distress HEENT: Head is atraumatic, normocephalic, pupils were equal round reactive to light and recommendation, extraocular muscle movement were intact, sclera nonicteric, conjunctivae were pale, mucous membranes of the mouth are somewhat dry. Neck: Supple, no JVP, normal carotid upstroke bilaterally, no lymphadenopathy. Chest: Decreased breath sounds at the bases, few rhonchi, no expiratory wheezes, no chest wall tenderness, no intercostal retractions. Heart: First heart sound is normal, second heart sound is normal, there is systolic ejection murmur 2/6 located in the left sternal border. Abdomen: Soft, nontender, nondistended, positive bowel sounds. Extremities: There is no edema no calf tenderness DP +2 bilaterally, left leg is wrapped with an Fernando wrap Neurologic examination: Patient is awake alert and oriented X 3 , cranial nerves II-12 appear grossly intact, muscle power were 5 out of 5 in upper extremities and 5 out of 5 in bilateral lower extremities, deep tendon reflexes normal bilaterally. ASSESSMENT AND PLAN: 1. Post operative day #0 status post left total knee arthroplasty. continue patient on current pain management, patient was instructed to use the incentive spirometer to reduce the incidence of atelectasis and hospital-acquired pneumonia, I have recommended for the patient to be started on Xarelto 10 mg orally once every day for the next 12 days, however orthopedic surgery elected for Lovenox 40 mg subcutaneously every 24 hours, we will discuss with orthopedic service because the patient's prior history of DVT, if there is no Indication from the surgery standpoint I believe the patient would benefit from Xarelto rather than Lovenox., Physical therapy evaluation tomorrow morning, early ambulation. 2. Hypertension and hypertensive cardiovascular disease. Continue patient on losartan 50 mg once every day, monitor the patient blood pressure very closely. 3. Hyperlipidemia. Continue patient on atorvastatin 10 mg orally once every day, monitor the patient panel. 4. Diabetes mellitus type 2. Currently on metformin 500 mg orally twice every day, continue glimeperide 2 mg orally once every day as well as Januvia 100 mg once every day, we will add sliding scale insulin as needed. 5. Depression. Continue patient on citalopram 20 mg once every day. 6. Glaucoma. Continue current eyedrops. 7. Obesity with obstructive sleep apnea. Patient may use her on CPAP. 8. DVT prophylaxis. Patient was started on Lovenox 40 mg subcutaneously every 24 hours. 9. GI prophylaxis. Continue omeprazole 20 mg orally once every day or its substitute Protonix 40 mg once every day. 10. Thank you Dr. Dyson for the consult we'll follow the patient with you. Past Medical History Past Medical History: Diabetes Mellitus, Deep Vein Thrombosis (DVT), Eye Disorder, GERD/Reflux, Hyperlipidemia, Hypertension, Osteoarthritis (OA), Sleep Apnea/CPAP/BIPAP Additional Past Medical History / Comment(s): Vitamin D Deficiency, Glaucoma, sees Dr. Anderson for her heart murmur, DVT after right knee replacement in 2018, uses CPAP. History of Any Multi-Drug Resistant Organisms: None Reported Past Surgical History: Cholecystectomy, Hernia Repair, Hysterectomy, Joint R eplacement, Orthopedic Surgery Additional Past Surgical History / Comment(s): right carpal tunnel surgery, cyst removed from right wrist and back, EGD, colonoscopy, right knee replacement. PAIN CLINIC PROCEDURES, eye lazer for glaucoma Past Anesthesia/Blood Transfusion Reactions: Previous Problems w/ Anesthesia, Family History of Problems w/ Anesthesia, Postoperative Nausea & Vomiting (PONV) Additional Past Anesthesia/Blood Transfusion Reaction / Comm: States she woke up during her surgery for cyst removal. Mother has difficulty waking up from anesthesia. Past Psychological History: Anxiety, Depression Smoking Status: Former smoker Past Alcohol Use History: Rare Additional Past Alcohol Use History / Comment(s): patient quit smoking in 1987.- ONLY SMOKED 1 PACK EVER. She drinks 4 alcoholic beverages per month. Past Drug Use History: None Reported - Past Family History Mother Family Medical History: Deep Vein Thrombosis (DVT) Additional Family Medical History / Comment(s): Mother age 74 with history of blood clots. Father Family Medical History: Diabetes Mellitus, Deep Vein Thrombosis (DVT) Additional Family Medical History / Comment(s): Paternal grandmother colon CA. Father at age 72 pneumonia Daughter(s) Additional Family Medical History / Comment(s): colon polyps(precancerous) Son(s) Additional Family Medical History / Comment(s): Patient has one son with no major medical problems. Brother(s) Additional Family Medical History / Comment(s): Patient has 1 brother and 1 sister with no major medical problems. Medications and Allergies Home Medications Medication Instructions Recorded Confirmed Type Atorvastatin [Lipitor] 10 mg PO DAILY 06/20/15 08/27/22 History Losartan Potassium [Cozaar] 50 mg PO DAILY 06/20/15 08/27/22 History Aspirin [Adult Low Dose Aspirin EC] 81 mg PO DAILY 01/25/19 08/27/22 History Omeprazole 20 tab PO DAILY 11/15/21 08/27/22 History Glimepiride [Amaryl] 2 mg PO [id number] 01/08/22 08/27/22 History Citalopram Hydrobromide 20 mg PO DAILY 08/27/22 08/27/22 History [Citalopram HBr] Glaucoma Eye Gtts 1 drop BOTH EYES DIRECTED 08/27/22 History Allergies Allergy/AdvReac Type Severity Reaction Status Date / Time nickel Allergy welts,skin Verified 09/02/22 08:46 weeps Penicillins Allergy Anaphylaxis Verified 09/02/22 08:46 acetaminophen AdvReac headache Verified 09/02/22 08:46 [From Tylenol-Codeine #3] codeine AdvReac headache Verified 09/02/22 08:46 [From Tylenol-Codeine #3] Physical Exam Vitals: Vital Signs Temp Pulse Resp BP Pulse Ox 09/02/22 19:29 97.7 F 71 16 123/80 92 L 09/02/22 16:32 97.5 F L 73 18 150/87 94 L 09/02/22 15:54 67 16 124/68 93 L 09/02/22 15:15 74 16 157/67 98 09/02/22 15:00 65 16 155/70 98 09/02/22 14:45 71 16 140/87 98 09/02/22 14:30 69 16 138/81 98 09/02/22 14:15 67 16 134/72 99 09/02/22 14:00 64 16 132/64 100 09/02/22 13:45 65 16 141/87 100 09/02/22 13:30 62 16 129/69 96 09/02/22 13:15 63 16 119/74 93 L 09/02/22 13:00 54 L 16 128/75 95 09/02/22 12:45 54 L 16 154/83 97 09/02/22 12:30 59 L 16 141/75 97 09/02/22 12:15 62 16 136/60 97 09/02/22 12:04 97.0 F L 60 16 142/67 99 09/02/22 09:45 80 16 121/64 99 09/02/22 09:06 98.2 F 66 16 164/90 98 Intake and Output 09/02/22 09/02/22 09/02/22 06:59 14:59 22:59 Intake Total 2050 Output Total 45 Balance 2005 Intake: IV 2050 Output: Estimated Blood Loss 45 Other: Voiding Method Toilet # Voids 1 Weight 101.2 kg 101.2 kg Results Labs: Abnormal Lab Results - Last 24 Hours (Table) 09/02/22 09/02/22 09/02/22 Range/Units 09:04 12:55 16:59 POC Glucose (mg/dL) 124 H 115 H 142 H (70-110) mg/dL
[2022-09-03] MEDS: HYDROcodone/APAP 7.5-325MG 1 EACH TAB PO PRN ×4 (08:00→20:32)
[2022-09-03] MEDS: CITALOPRAM HYDROBROMIDE 20 MG TAB PO SCH (08:03)
[2022-09-03] MEDS: ATORVASTATIN 10 MG TAB PO SCH (08:03)
[2022-09-03] MEDS: LOSARTAN 50 MG TAB PO SCH (08:03)
[2022-09-03] MEDS: PANTOPRAZOLE 40 MG TABLET PO SCH (08:03)
[2022-09-03] MEDS: GLIMEPIRIDE 2 MG TAB PO SCH (08:03)
[2022-09-03] MEDS: metFORMIN 500 MG TAB PO SCH ×2 (08:03→17:11)
[2022-09-03] MEDS: INSULIN ASPART (NovoLOG) 100 UNIT/ML VIAL SQ SCH ×4 (08:57→20:31)
[2022-09-03] MEDS: LACTATED RINGERS 1,000 ML IV SCH ×3 (08:57→23:16)
[2022-09-03] MEDS: ASPIRIN 81 MG PO SCH (08:58)
[2022-09-03] MEDS ORDERED: ENOXAPARIN 40 MG/0.4 ML SYRINGE SQ SCH (09:00)
[2022-09-03] MEDS: HYDROmorphone 1 MG/ML 1 ML SYRINGE IVP PRN ×4 (09:18→21:14)
--- NOTE | 2022-09-03 09:39 | P.PN ---
Progress Note - Text Progress Note Date: 09/03/22 Postoperative day # 1 status post total knee arthroplasty, on adductor canal perineural catheter placed for postoperative analgesia. Ropivacaine 0.2% 8 mL per hour through ON-Q pump continuous infusion. Pain is not well controlled. On visual analog scale 6/10 Patient is taking PRN oral pain medications. Catheter site: Looks Ok. There is no erythema or tenderness. Continue with the current pain management plan and more PO medications, and will follow.
[2022-09-03] MEDS ORDERED: traMADol 50 MG TAB PO PRN (10:42)
[2022-09-03 11:06] LABS: Basophils # (A) 0.02 X 10*3/uL (0.00-0.10); Basophils % (A) 0.2 %; Eosinophils # (A) 0 X 10*3/uL (0.04-0.35); Eosinophils % (A) 0 %; HCT 36.4 % (37.2-46.3); HGB 11.4 g/dL (12.0-15.0); Immature Grans, Automated 0.3 %; Lymphocytes # (A) 2.52 X 10*3/uL (0.90-5.00); MCHC 31.3 g/dL (32.0-37.0); MCV 89.4 fL (80.0-97.0); Mean Platelet Volume 10.2 fL (9.5-12.2); Monocytes # (A) 0.84 X 10*3/uL (0.20-1.00); Monocytes % (A) 7.3 %; NRBC Per 100 WBC 0 /100 WBCS (0.0-0.0); Neutrophils # (A) 8.02 X 10*3/uL (1.80-7.70); Neutrophils % (A) 70.2 %; Platelet Count 281 X 10*3/uL (140-440); RBC 4.07 X 10*6/uL (4.10-5.20); RDW 13.3 % (11.5-14.5); WBC 11.43 X 10*3/uL (4.50-10.00)
[2022-09-03 11:15] LABS: Glucose,Whole Blood 138 mg/dL (70-110)
--- NOTE | 2022-09-03 11:25 | P.PN ---
Subjective Progress Note Date: 09/03/22 Principal diagnosis: status post left total knee arthroplasty Patient is a better today, she is resting in her hospital bed. Patient's is present today. Patient states that she did have a lot of pain earlier this morning where IV pain medication. It seems to be calming down with a higher dose Alberta. She currently rates, lightheadedness, chest pain, shortness of breath. Objective - Vital Signs Vital signs: Vital Signs Temp 98.7 F 09/03/22 07:20 Pulse 64 09/03/22 09:18 Resp 20 09/03/22 09:18 BP 146/89 09/03/22 07:20 Pulse Ox 94 L 09/03/22 07:20 FiO2 Intake & Output 09/02/22 09/03/22 09/03/22 18:59 06:59 18:59 Intake Total 2050 118 Output Total 45 Balance 2005 118 Weight 101.2 kg Intake: IV 2050 Oral 118 Output: Estimated Blood Loss 45 Other: Voiding Method Toilet Toilet # Voids 1 3 - Exam Left lower extremity: Incision is clean, dry, and intact. The foam dressing is in good position and condition. There is minimal soft tissue swelling and ecchymosis surrounding the medial and lateral aspects of the incision. Calf is soft, no tenderness with palpation. Plantar flexion, dorsiflexion, EHL, FHL are intact. Sensory exam to light touch throughout the extremity is intact, dorsal pedis pulses 2+. - Labs CBC & Chem 7: 09/03/22 05:37 Labs: Abnormal Lab Results - Last 24 Hours (Table) 09/02/22 09/02/22 09/02/22 Range/Units 12:55 16:59 20:32 WBC (4.50-10.00) X 10*3/uL RBC (4.10-5.20) X 10*6/uL Hgb (12.0-15.0) g/dL Hct (37.2-46.3) % MCHC (32.0-37.0) g/dL Neutrophils # (1.80-7.70) X 10*3/uL Eosinophils # (0.04-0.35) X 10*3/uL POC Glucose (mg/dL) 115 H 142 H 201 H (70-110) mg/dL 04/09/2209/03/22 09/03/22 Range/Units 05:37 06:06 11:14 WBC 11.43 H (4.50-10.00) X 10*3/uL RBC 4.07 L (4.10-5.20) X 10*6/uL Hgb 11.4 L (12.0-15.0) g/dL Hct 36.4 L (37.2-46.3) % MCHC 31.3 L (32.0-37.0) g/dL Neutrophils # 8.02 H (1.80-7.70) X 10*3/uL Eosinophils # 0 L (0.04-0.35) X 10*3/uL POC Glucose (mg/dL) 142 H 138 H (70-110) mg/dL Assessment and Plan Assessment: Postoperative day #1 status post left total knee arthroplasty Plan: Pain control, continue use of the Alberta 7.5 mg/325 mg, will add tramadol 50 mg to given between DVT prophylaxis, continue Lovenox during hospital stay, will utilize Eliquis 2.5mg bid for 30 days after discharge. Patient does have a history of a previous DVT after her right total knee arthroplasty Wound care instructions discussed, this to include pain, icing and elevating and showering Continue PT/OT, weight-bear as tolerated with walker Encourage incentive spirometer Medical recommendations Discharge planning: We'll evaluate patient later this afternoon, pending pain level may discharge home vs additional night in hospital Time with Patient: Less than 30
--- NOTE | 2022-09-03 13:48 | US ---
EXAMINATION TYPE: US venous doppler duplex LE LT DATE OF EXAM: 09/03/2022 1:33 PM COMPARISON: NONE CLINICAL HISTORY: pain and swelling. Left total knee 1 day ago SIDE PERFORMED: Left TECHNIQUE: The lower extremity deep venous system is examined utilizing real time linear array sonog bhanu with graded compression, doppler sonography and color-flow sonography. VESSELS IMAGED: Common Femoral Vein Deep Femoral Vein Greater Saphenous Vein * Femoral Vein Popliteal Vein Small Saphenous Vein * Proximal Calf Veins (* superficial vessels) Grayscale, color doppler, spectral doppler imaging performed of the deep veins of the lower extremiti es. There is normal flow, compressibility, vascular waveforms. Left Leg: Negative for DVT IMPRESSION: No ultrasound evidence for deep venous thrombosis of the left lower extremity.
[2022-09-03] MEDS: MULTIVITAMINS, THERA 1 EACH TAB PO SCH (14:40)
[2022-09-03 16:39] LABS: Glucose,Whole Blood 142 mg/dL (70-110)
[2022-09-03 20:22] LABS: Glucose,Whole Blood 152 mg/dL (70-110)
[2022-09-03] MEDS: SENNOSIDES-DOCUSATE SODIUM 1 EACH TAB PO SCH (20:31)
[2022-09-04] MEDS: HYDROcodone/APAP 7.5-325MG 1 EACH TAB PO PRN ×4 (00:20→14:32)
[2022-09-04] MEDS: HYDROmorphone 1 MG/ML 1 ML SYRINGE IVP PRN (01:46)
[2022-09-04 06:08] LABS: Glucose,Whole Blood 144 mg/dL (70-110)
[2022-09-04] MEDS: INSULIN ASPART (NovoLOG) 100 UNIT/ML VIAL SQ SCH ×2 (06:21→12:13)
[2022-09-04] MEDS: PANTOPRAZOLE 40 MG TABLET PO SCH (06:28)
[2022-09-04] MEDS: GLIMEPIRIDE 2 MG TAB PO SCH (06:29)
[2022-09-04] MEDS: metFORMIN 500 MG TAB PO SCH (06:29)
[2022-09-04] MEDS ORDERED: APIXABAN 2.5 MG TABLET PO SCH (08:00)
[2022-09-04] MEDS: ATORVASTATIN 10 MG TAB PO SCH (09:08)
[2022-09-04] MEDS: CITALOPRAM HYDROBROMIDE 20 MG TAB PO SCH (09:08)
[2022-09-04] MEDS: LOSARTAN 50 MG TAB PO SCH (09:08)
[2022-09-04] MEDS: ASPIRIN 81 MG PO SCH (09:15)
--- NOTE | 2022-09-04 09:34 | P.PN ---
Subjective Progress Note Date: 09/04/22 Principal diagnosis: status post left total knee arthroplasty Patient was evaluated today at bedside, she is resting in her hospital bed, her is present at bedside. Patient states the pain continues to fluctuate. She has been utilizing the Clio every 4 hours, she does feel this is helping. She feels of tramadol didn't do much with relief. A Doppler ultrasound was done of the left lower extremity yesterday due to increase in swelling, it was negative for any DVT. She continues to have no chest pain, shortness of breath, nausea or vomiting, fever or chills. Objective - Vital Signs Vital signs: Vital Signs Temp 98.9 F 09/04/22 08:17 Pulse 77 09/04/22 08:17 Resp 16 09/04/22 08:17 BP 155/90 09/04/22 08:17 Pulse Ox 94 L 09/04/22 08:17 FiO2 Intake & Output 09/03/22 09/04/22 09/04/22 18:59 06:59 18:59 Intake Total 518 Balance 518 Intake: Oral 518 Other: Voiding Method Toilet # Voids 2 5 - Exam Left lower extremity: Incision is clean, dry, and intact. The foam dressing is in good position and condition. There is minimal soft tissue swelling and ecchymosis surrounding the medial and lateral aspects of the incision. Calf is soft, no tenderness with palpation. Plantar flexion, dorsiflexion, EHL, FHL are intact. Sensory exam to light touch throughout the extremity is intact, dorsal pedis pulses 2+. - Labs CBC & Chem 7: 09/03/22 05:37 Labs: Abnormal Lab Results - Last 24 Hours (Table) 09/03/22 09/03/22 09/03/22 Range/Units 05:37 11:14 16:38 WBC 11.43 H (4.50-10.00) X 10*3/uL RBC 4.07 L (4.10-5.20) X 10*6/uL Hgb 11.4 L (12.0-15.0) g/dL Hct 36.4 L (37.2-46.3) % MCHC 31.3 L (32.0-37.0) g/dL Neutrophils # 8.02 H (1.80-7.70) X 10*3/uL Eosinophils # 0 L (0.04-0.35) X 10*3/uL POC Glucose (mg/dL) 138 H 142 H (70-110) mg/dL 09/03/22 09/04/22 Range/Units 20:20 06:06 WBC (4.50-10.00) X 10*3/uL RBC (4.10-5.20) X 10*6/uL Hgb (12.0-15.0) g/dL Hct (37.2-46.3) % MCHC (32.0-37.0) g/dL Neutrophils # (1.80-7.70) X 10*3/uL Eosinophils # (0.04-0.35) X 10*3/uL POC Glucose (mg/dL) 152 H 144 H (70-110) mg/dL Assessment and Plan Assessment: Postoperative day #2 status post left total knee arthroplasty Plan: Pain control, plan for discharge on Clio 7.5 mg/325 mg DVT prophylaxis, Eliquis 2.5mg twice a day for 30 days Wound care instructions discussed, this to include pain, icing and elevating and showering Continue PT/OT, weight-bear as tolerated with walker Encourage incentive spirometer Medical recommendations Discharge planning: Plan for discharge home today Time with Patient: Less than 30
[2022-09-04] MEDS ORDERED: CYCLOBENZAPRINE 5 MG TAB PO PRN (09:39)
--- NOTE | 2022-09-04 10:21 | P.PN ---
Subjective Progress Note Date: 09/03/22 HISTORY OF PRESENT ILLNESS: This is a 56-year-old female with a previous medical history signif icant for hypertension and hypertensive cardio vascular disease, hyperlipidemia, diabetes mellitus type 2, obesity with affective sleep apnea, currently on CPAP, history of anxiety disorder, history of DVT of the right lower x-ray post right total knee arthroplasty, patient underwent left total knee arthroplasty that was done successfully by Dr. Dyson and I was asked to see the patient for pos toperative medical management 09/03: Patient is complaining of pain in her left leg as well as swelling into her thighs. Ultrasound will be ordered to rule out DVT. Patient has been afebrile, heart rate 64, blood pressure 146/89, pulse ox 94% on room air. REVIEW OF SYSTEMS: Constitutional: No documented fever, no chills, no night sweats. No weight change. No weakness, fatigue or lethargy. No daytime sleepiness. EENT: No headache. No blurred vision or double vision, no loss of vision. No loss of Hearing, no ringing in the ears, no dizziness. No nasal drainage or congestion. No epistaxis. No sore throat. Lungs: No shortness of breath, no cough, no sputum production. No wheezing. R eports dyspnea with activity. Cardiovascular: No chest pain, no lower extremity edema. No palpitations. No paroxysmal nocturnal dyspnea. No orthopnea. No lightheadedness or dizziness. No syncopal episodes. Abdominal: Reports abdominal pain. No nausea, vomiting. No diarrhea. No constipation. No bloody or tarry stools reports loss of appetite. Genitourinary: No dysuria, increased frequency, urgency. No urinary retention. Musculoskeletal: No myalgias. No muscle weakness, no gait dysfunction, no frequent falls. No back pain. No neck pain. Integumentary: No wounds, no lesions. No rash or pruritus. No unusual bruising. No change in hair or nails. Neurologic: No aphasia. No facial droop. No change in mentation. No head injury. No headache. No paralysis. No paresthesia. Psychiatric: No depression. No anxiety. No mood swings. Endocrine: No abnormal blood sugars. No weight change. PHYSICAL EXAMINATION: General: 56-year-old female laying down in bed in no apparent distress HEENT: Head is atraumatic, normocephalic, pupils were equal round reactive to light and recommendation, extraocular muscle movement were intact, sclera nonicteric, conjunctivae were pale, mucous membranes of the mouth are somewhat dry. Neck: Supple, no JVP, normal carotid upstroke bilaterally, no lymphadenopathy. Chest: Decreased breath sounds at the bases, few rhonchi, no expiratory wheezes, no chest wall tenderness, no intercostal retractions. Heart: First heart sound is normal, second heart sound is normal, there is systolic ejection murmur 2/6 located in the left sternal border. Abdomen: Soft, nontender, nondistended, positive bowel sounds. Extremities: There is no edema no calf tenderness DP +2 bilaterally, left leg is wrapped with an Fernando wrap Neurologic examination: Patient is awake alert and oriented X 3 , cranial nerves II-12 appear grossly intact, muscle power were 5 out of 5 in upper extremities and 5 out of 5 in bilateral lower extremities, deep tendon reflexes normal bilaterally. ASSESSMENT AND PLAN: 1. Post operative day #1 status post left total knee arthroplasty. continue patient on current pain management, patient was instructed to use the incentive spirometer to reduce the incidence of atelectasis and hospital-acquired pneumonia, DVT prophylaxis per orthopedics, ultrasound of the left lower extremity rule out DVT. 2. Hypertension and hypertensive cardiovascular disease. Continue patient on losartan 50 mg once every day, monitor the patient blood pressure very closely. 3. Hyperlipidemia. Continue patient on atorvastatin 10 mg orally once every day, monitor the patient panel. 4. Diabetes mellitus type 2. Currently on metformin 500 mg orally twice every day, continue glimeperide 2 mg orally once every day, continue sliding scale i nsulin as needed. 5. Depression. Continue patient on citalopram 20 mg once every day. 6. Glaucoma. Continue current eyedrops. 7. Obesity with obstructive sleep apnea. Patient may use her on CPAP. 8. DVT prophylaxis. Patient was started on Lovenox 40 mg subcutaneously every 24 hours. 9. GI prophylaxis. Continue omeprazole 20 mg orally once every day or its substitute Protonix 40 mg once every day. 10. Thank you Dr. Dyson for the consult we'll follow the patient with you. Impression and plan of care have been directed as dictated by the signing physician. Billie Moreno nurse practitioner acting as scribe for signing physician. Objective - Vital Signs Vital signs: Vital Signs Temp 98.7 F 09/03/22 07:20 Pulse 64 09/03/22 09:18 Resp 20 09/03/22 09:18 BP 146/89 09/03/22 07:20 Pulse Ox 94 L 09/03/22 07:20 FiO2 Intake & Output 09/02/22 09/03/22 09/03/22 18:59 06:59 18:59 Intake Total 2050 118 Output Total 45 Balance 2005 118 Weight 101.2 kg Intake: IV 2050 Oral 118 Output: Estimated Blood Loss 45 Other: Voiding Method Toilet Toilet # Voids 1 3 - Labs CBC & Chem 7: 09/03/22 05:37 Labs: Abnormal Lab Results - Last 24 Hours (Table) 09/02/22 09/02/22 09/03/22 Range/Units 16:59 20:32 05:37 WBC 11.43 H (4.50-10.00) X 10*3/uL RBC 4.07 L (4.10-5.20) X 10*6/uL Hgb 11.4 L (12.0-15.0) g/dL Hct 36.4 L (37.2-46.3) % MCHC 31.3 L (32.0-37.0) g/dL Neutrophils # 8.02 H (1.80-7.70) X 10*3/uL Eosinophils # 0 L (0.04-0.35) X 10*3/uL POC Glucose (mg/dL) 142 H 201 H (70-110) mg/dL 09/03/22 09/03/22 Range/Units 06:06 11:14 WBC (4.50-10.00) X 10*3/uL RBC (4.10-5.20) X 10*6/uL Hgb (12.0-15.0) g/dL Hct (37.2-46.3) % MCHC (32.0-37.0) g/dL Neutrophils # (1.80-7.70) X 10*3/uL Eosinophils # (0.04-0.35) X 10*3/uL POC Glucose (mg/dL) 142 H 138 H (70-110) mg/dL
--- NOTE | 2022-09-04 10:24 | P.PN ---
Subjective Progress Note Date: 09/04/22 HISTORY OF PRESENT ILLNESS: This is a 56-year-old female with a previous medical history signif icant for hypertension and hypertensive cardio vascular disease, hyperlipidemia, diabetes mellitus type 2, obesity with affective sleep apnea, currently on CPAP, history of anxiety disorder, history of DVT of the right lower x-ray post right total knee arthroplasty, patient underwent left total knee arthroplasty that was done successfully by Dr. Dyson and I was asked to see the patient for pos toperative medical management 09/03: Patient is complaining of pain in her left leg as well as swelling into her thighs. Ultrasound will be ordered to rule out DVT. Patient has been afebrile, heart rate 64, blood pressure 146/89, pulse ox 94% on room air. 09/04: Patient's pain to the left lower extremity is improved from yesterday. Ultrasound of the left lower extremity negative for DVT. Orthopedics is started the patient on eliquis. She has been afebrile, heart rate in the 70s, blood pressure 155/90, pulse ox 94% on room air. Capillary blood glucose running between 138 and 152. Blood pressure readings slightly high but we will continue same medications as this may be related to pain management. Medication reconciliation has been reviewed for discharge. Patient is planning to return home. REVIEW OF SYSTEMS: Constitutional: No documented fever, no chills, no night sweats. No weight change. No weakness, fatigue or lethargy. No daytime sleepiness. EENT: No headache. No blurred vision or double vision, no loss of vision. No loss of Hearing, no ringing in the ears, no dizziness. No nasal drainage or congestion. No epistaxis. No sore throat. Lungs: No shortness of breath, no cough, no sputum production. No wheezing. Reports dyspnea with activity. Cardiovascular: No chest pain, no lower extremity edema. No palpitations. No paroxysmal nocturnal dyspnea. No orthopnea. No lightheadedness or dizziness. No syncopal episodes. Abdominal: Reports abdominal pain. No nausea, vomiting. No diarrhea. No constipation. No bloody or tarry stools reports loss of appetite. Genitourinary: No dysuria, increased frequency, urgency. No urinary retention. Musculoskeletal: No myalgias. No muscle weakness, no gait dysfunction, no frequent falls. No back pain. No neck pain. Discomfort to the left knee. Integumentary: No wounds, no lesions. No rash or pruritus. No unusual bruising. No change in hair or nails. Neurologic: No aphasia. No facial droop. No change in mentation. No head injury. No headache. No paralysis. No paresthesia. Psychiatric: No depression. No anxiety. No mood swings. Endocrine: No abnormal blood sugars. No weight change. PHYSICAL EXAMINATION: General: 56-year-old female laying down in bed in no apparent distress HEENT: Head is atraumatic, normocephalic, pupils were equal round reactive to light and recommendation, extraocular muscle movement were intact, sclera nonicteric, conjunctivae were pale, mucous membranes of the mouth are somewhat dry. Neck: Supple, no JVP, normal carotid upstroke bilaterally, no lymphadenopathy. Chest: Decreased breath sounds at the bases, few rhonchi, no expiratory wheezes, no chest wall tenderness, no intercostal retractions. Heart: First heart sound is normal, second heart sound is normal, there is systolic ejection murmur 2/6 located in the left sternal border. Abdomen: Soft, nontender, nondistended, positive bowel sounds. Extremities: There is no edema no calf tenderness DP +2 bilaterally, dressing in place to the left knee. Neurologic examination: Patient is awake alert and oriented X 3 , cranial nerves II-12 appear grossly intact, muscle power were 5 out of 5 in upper extremities and 5 out of 5 in bilateral lower extremities, deep tendon reflexes normal bilaterally. ASSESSMENT AND PLAN: 1. Post operative day #2 status post left total knee arthroplasty. continue patient on current pain management, patient was instructed to use the incentive spirometer to reduce the incidence of atelectasis and hospital-acquired pneumonia, DVT prophylaxis per orthopedics, ultrasound of the left lower extremity ruled out DVT. Patient is on eliquis for DVT prophylaxis. 2. Hypertension and hypertensive cardiovascular disease. Continue patient on losartan 50 mg once every day, monitor the patient blood pressure very closely. 3. Hyperlipidemia. Continue patient on atorvastatin 10 mg orally once every day, monitor the patient panel. 4. Diabetes mellitus type 2. Currently on metformin 500 mg orally twice every day, continue glimeperide 2 mg orally once every day, continue sliding scale insulin as needed. 5. Depression. Continue patient on citalopram 20 mg once every day. 6. Glaucoma. Continue current eyedrops. 7. Obesity with obstructive sleep apnea. Patient may use her on CPAP. 8. DVT prophylaxis. Patient was started on eliquis. 9. GI prophylaxis. Continue omeprazole 20 mg orally once every day or its substitute Protonix 40 mg once every day. Impression and plan of care have been directed as dictated by the signing physician. Billie Moreno nurse practitioner acting as scribe for signing physician. Objective - Vital Signs Vital signs: Vital Signs Temp 98.4 F 09/04/22 01:55 Pulse 75 09/04/22 01:55 Resp 16 09/04/22 01:55 BP 167/80 09/04/22 01:55 Pulse Ox 94 L 09/04/22 01:55 FiO2 Intake & Output 09/03/22 09/04/22 09/04/22 18:59 06:59 18:59 Intake Total 518 Balance 518 Intake: Oral 518 Other: Voiding Method Toilet # Voids 2 5 - Labs CBC & Chem 7: 09/03/22 05:37 Labs: Abnormal Lab Results - Last 24 Hours (Table) 09/03/22 09/03/22 09/03/22 Range/Units 05:37 11:14 16:38 WBC 11.43 H (4.50-10.00) X 10*3/uL RBC 4.07 L (4.10-5.20) X 10*6/uL Hgb 11.4 L (12.0-15.0) g/dL Hct 36.4 L (37.2-46.3) % MCHC 31.3 L (32.0-37.0) g/dL Neutrophils # 8.02 H (1.80-7.70) X 10*3/uL Eosinophils # 0 L (0.04-0.35) X 10*3/uL POC Glucose (mg/dL) 138 H 142 H (70-110) mg/dL 09/03/22 09/04/22 Range/Units 20:20 06:06 WBC (4.50-10.00) X 10*3/uL RBC (4.10-5.20) X 10*6/uL Hgb (12.0-15.0) g/dL Hct (37.2-46.3) % MCHC (32.0-37.0) g/dL Neutrophils # (1.80-7.70) X 10*3/uL Eosinophils # (0.04-0.35) X 10*3/uL POC Glucose (mg/dL) 152 H 144 H (70-110) mg/dL
[2022-09-04 11:53] LABS: Glucose,Whole Blood 141 mg/dL (70-110)
[2022-09-04] MEDS: MULTIVITAMINS, THERA 1 EACH TAB PO SCH (12:23)
--- NOTE | 2022-09-04 12:38 | P.DS ---
Providers Date of admission: 09/04/22 08:23 Expected date of discharge: 09/04/22 Attending physician: Markie Dyson Consults: 09/02/22 11:50 Consult Physician Routine Consulting Provider: Liz Kurtz Consult Reason/Comments: Medical management Do you want consulting provider notified?: Yes Primary care physician: Liz Kurtz Hospital Course: Date of admission: 09/02/2022 Date of discharge: 09/04/2022 Admission diagnosis: Status post left total knee arthroplasty Discharge diagnosis: Same Attending physician: Dr. Dyson Surgical procedures: Left total knee arthroplasty Brief history: Patient is a 56-year-old female with a history of progressive primary left knee osteoarthritis. At this point patient has failed conservative treatment measures and has opted to proceed with a elective left total knee arthroplasty. Hospital course: Details of patient's surgery can be found in operative report. Patient tolerated the procedure well and was subsequently transported to orthopedic floor. Patient's orthopeidc and medical care was provided daily. Patient had daily laboratory tests performed for evaluation of overall blood counts. Patient had daily physical therapy to include strengthening range of motion as well as education with walker ambulation. Patient was treated with Lovenox followed by Eliquis for their postoperative DVT prophylaxis during their inpatient stay. Patient was noted to have a relatively uneventful postoperative course. Patient reported satisfactory pain control with oral pain medications by postoperative day 2. Patient showed satisfactory progress with physical therapy. Patient moved steadily through the program and had no difficulty meeting the goals by postoperative day 2. Given patient's otherwise satisfactory course and having met physical therapy goals, plan is to discharge patient home on postoperative day 2. Discharge condition/disposition: Patient will be discharged home in stable condition. Discharge medications: Instructions are given on resumption of patient's normal daily medications per primary care recommendation, in addition patient will be prescribed [place] 7.5 mg/325 mg, Flexeril 5mg, senna S, Eliquis 2.5mg. Discharge instructions: 1. Wound care and infection precautions, keep incision dry and covered while showering, no lotions, creams, moisturizers. No soaking, tubs, pools, hottubs. Do not scrub over the incision. 2. Weight-bear as tolerated with walker / cane until follow-up. 3. Ice and elevate when necessary. Do not exceed 20 minutes per hour with ice pack. 4. Utilize compression sleeve until seen at first follow up appointment. 5. Visiting nursing care. 6. Home physical therapy. 7. Pain meds and anticoagulants per prescription. 8. Pain medication has potential to cause constipation. Increase oral fluid and fiber intake. Contact primary care provider if you have not had a bowel movement within 48 hours after discharge 9. No anti-inflammatory medication until discussed at first post operative visit, this including Motrin, Aleve, Mobic, Diclofenac. 10. Follow up in office at 2 weeks postop with Sundeep Baird PA-C/Ace Villegas 11. Follow up with your primary care doctor 7-10 days after discharge. 12. Contact [facility] with any questions, . Procedures: Left total knee arthroplasty Patient Condition at Discharge: Good Plan - Discharge Summary Discharge Rx Participant: Yes New Discharge Prescriptions: New Multivitamins, Thera [Multivitamin (formulary)] 1 each PO DAILY@1200 tab Apixaban [Eliquis] 2.5 mg PO BID #60 tab HYDROcodone/APAP 7.5-325MG [[place] 7.5] 1 each PO Q4HR PRN #42 tab PRN Reason: Pain Sennosides/Docusate Sodium [Senna-S 8.6-50 mg Tablet] 1 each PO DAILY PRN #30 tablet PRN Reason: Constipation metFORMIN HCL [Glucophage] 500 mg PO BID-W/MEALS tab Sennosides-Docusate Sodium [Senokot-S] 2 each PO HS tab Cyclobenzaprine [Flexeril] 5 mg PO BID PRN #30 tablet PRN Reason: Muscle Spasm Continue Atorvastatin [Lipitor] 10 mg PO DAILY Losartan Potassium [Cozaar] 50 mg PO DAILY Aspirin [Adult Low Dose Aspirin EC] 81 mg PO DAILY Omeprazole 20 tab PO DAILY Glimepiride [Amaryl] 2 mg PO AC-BRKFST Citalopram Hydrobromide [Citalopram HBr] 20 mg PO DAILY Glaucoma Eye Gtts 1 drop BOTH EYES DIRECTED Discharge Medication List Atorvastatin [Lipitor] 10 mg PO DAILY 06/20/15 [History] Losartan Potassium [Cozaar] 50 mg PO DAILY 06/20/15 [History] Aspirin [Adult Low Dose Aspirin EC] 81 mg PO DAILY 01/25/19 [History] Omeprazole 20 tab PO DAILY 11/15/21 [History] Glimepiride [Amaryl] 2 mg PO AC-BRKFST 01/08/22 [History] Citalopram Hydrobromide [Citalopram HBr] 20 mg PO DAILY 08/27/22 [History] Glaucoma Eye Gtts 1 drop BOTH EYES DIRECTED 08/27/22 [History] Multivitamins, Thera [Multivitamin (formulary)] 1 each PO DAILY@1200 tab 09/03/22 [Rx] Sennosides-Docusate Sodium [Senokot-S] 2 each PO HS tab 09/03/22 [Rx] metFORMIN HCL [Glucophage] 500 mg PO BID-W/MEALS tab 09/03/22 [Rx] Apixaban [Eliquis] 2.5 mg PO BID #60 tab 09/04/22 [Rx] Cyclobenzaprine [Flexeril] 5 mg PO BID PRN #30 tablet 09/04/22 [Rx] HYDROcodone/APAP 7.5-325MG [[place] 7.5] 1 each PO Q4HR PRN #42 tab 09/04/22 [Rx] Sennosides/Docusate Sodium [Senna-S 8.6-50 mg Tablet] 1 each PO DAILY PRN #30 tablet 09/04/22 [Rx] Follow up Appointment(s)/Referral(s): [facility], [NON-STAFF] - 1-2 Days ([facility] will call you to schedule your in home nursing and physical therapy visits. ) [facility],Equipment [NON-STAFF] - As Needed (*Please call [facility] once home to arrange delivery of the Continuous Passive Motion (CPM) machine. ) Emir Baird, ARMANDO [PHYSICIAN [employer]] - 2 Weeks Activity/Diet/Wound Care/Special Instructions: Orthopedic Discharge Instructions: 1. Wound care and infection precautions, keep incision dry and covered while showering, no lotions, creams, moisturizers. No soaking, pools, hot tubs. Do not scrub over incision. 2. Weight-bear as tolerated with walker / cane until follow-up. 3. Ice and elevate when necessary. Do not exceed 20 minutes per hour with ice pack. 4. Utilize compression sleeve until seen at first follow up appointment. 5. Pain meds and anticoagulants per prescription. 6. Pain medication has potential to cause constipation. Increase oral fluid and fiber intake. Contact primary care provider if you have not had a bowel movement within 48 hours after discharge. 7. No anti-inflammatory medication until discussed at first post operative visit, this including Motrin, Aleve, Mobic, Diclofenac. 8. Follow up in office at 2 weeks postop with Sundeep Baird PA-C/Ace Bauer PA-C 9. Follow up with your primary care doctor 7-10 days after discharge. 10. Contact [facility] with any questions, . Wound care instructions: 1. Okay to remove foam dressing is 09/09/2022 2. After removal of foam dressing, SHOWER directly over incision Discharge Disposition: HOME WITH HOME HEALTH SERVICES
[2022-09-04 14:14] VITALS: BP 167/92; PULSE 82; RESP 15; TEMP 99.1
[2022-09-04] MEDS ORDERED: LOSARTAN 50 MG TAB PO STA (14:15)
[2022-09-04] MEDS: LACTATED RINGERS 1,000 ML IV SCH (14:38)
== END 2022-09-04 15:03 | disposition home health service (06) ==
LOC: OR 08:25 → 4SSUR 12:05 → OR 09-04 08:23
PROVIDERS: ADMIT Orthopaedic Surgery; ATTEND Orthopaedic Surgery
DX: M17.12 Unilateral primary osteoarthritis, left knee (principal); I11.9 Hypertensive heart disease without heart failure; E11.9 Type 2 diabetes mellitus without complications; R22.42 Localized swelling, mass and lump, left lower limb; E78.5 Hyperlipidemia, unspecified; G47.30 Sleep apnea, unspecified; F32.9 Major depressive disorder, single episode, unspecified; K21.9 Gastro-esophageal reflux disease without esophagitis; H40.9 Unspecified glaucoma; G47.33 Obstructive sleep apnea (adult) (pediatric); E55.9 Vitamin D deficiency, unspecified; F41.9 Anxiety disorder, unspecified; E66.9 Obesity, unspecified; Z68.39 Body mass index [BMI] 39.0-39.9, adult; Z79.84 Long term (current) use of oral hypoglycemic drugs; Z79.899 Other long term (current) drug therapy; Z79.82 Long term (current) use of aspirin; Z88.0 Allergy status to penicillin; Z88.5 Allergy status to narcotic agent; Z88.6 Allergy status to analgesic agent; Z91.048 Other nonmedicinal substance allergy status; Z90.49 Acquired absence of other specified parts of digestive tract; Z90.710 Acquired absence of both cervix and uterus; Z87.891 Personal history of nicotine dependence; Z96.651 Presence of right artificial knee joint; Z86.718 Personal history of other venous thrombosis and embolism; Z98.890 Other specified postprocedural states; Z82.49 Family history of ischemic heart disease and other diseases of the circulatory system; Z83.3 Family history of diabetes mellitus; Z80.0 Family history of malignant neoplasm of digestive organs; Z83.71 Family history of colonic polyps
CPT/HCPCS: 97161; 64999; 64448; 76942; 85025; 88300; 73560; 93971; 27447; G0378; C1776; C1713 ×2; C1751; J2250; J1100; J2175; J0690 ×3; J2405 ×2; J1650; J3010; J1170 ×5; J2795; J2704; J2001

== ENCOUNTER → 2023-03-06 | Outpatient (CLI) | payer BC | END | disposition home or self-care (01) | LOC: LABWHC1 07:24 | PROVIDERS: ATTEND Internal Medicine | DX: E11.9 Type 2 diabetes mellitus without complications (principal) | CPT/HCPCS: 36415; 83036 ==

== ENCOUNTER → 2023-04-07 | Outpatient (CLI) | payer BC ==
[2023-04-07 13:18] VITALS: BP 114/78; PULSE 71; RESP 15; TEMP 97.8
--- NOTE | 2023-04-07 13:50 | P.PAINPG ---
PQRS Measure Charge Sheet Comment: A 56 yr old female with a history of severe and chronic low back pain secondary to lumbar degenerative disc diseases and lumbar spondylosis with facet arthropathy without myelopathy presents today for evaluation. Pain level is currently at 6/10 in intensity, constant, predominantly axial, localized in the R lower lumbar spine, throbbing in character w shooting towards the R thigh. Pain is provoked by sitting for periods of 20 min or more. Pain is alleviated with home exercise daily, heat, medications, walking, repositioning and rest. Oswestry axial pain score of 14. Interventional pain procedures completed include BL RFA L3-L5 (Mar 2022), R SI x1 Patient is currently on Ibuprofen, Robaxin Patient denies any side effects of the medication(s), denies excessive drowsiness or sleepiness, denies suicidal ideation and reports that the current pain medication is helping to control the pain and improve activities of daily living. Patient denies any motor or sensory deficits. Patient denies any fever or night sweats, denies any change in the bowel movements or urination. Physical Examination: -Constitutional: Cooperative. Not in acute distress . - Neurologic: Cranial nerve II to XII intact. No focal neurological deficits. - Psychatric: Alert & oriented x 3. Matching mood & appropriate affect. Judgment and insight intact. - Musculoskeletal: Cervical spine: Muscle bulk/ tone/ strength in the bilateral upper extremities normal Vertebral body tenderness to palpation over Spurling test positive Distraction test positive Facet loading test positive Thoracic spine Muscle bulk / tone/ strength in the bilateral paraspinal muscles normal Vertebral body tender to palpation over Facet loading test positive Lumbar spine: Motor bulk/ tone/ strength lower extremities , thigh and legs : 5/5 Deep tendon reflexes : Normal Knee Jerk. Normal Ankle Jerk . Vertebral body tenderness to palpation over Lumbar Facet Loading Test positive Straight Leg Raise: positive at 30 degrees right side/ left side Gaenslen's Test positive Sacral spine : Severe tenderness over the Sacroiliac joint: right side / left side Range of motion: Flexion of the lumbar spine <60 degrees Range of motion: Extension of the lumbar spine <20 degrees R Gaenslen's Test positive Seth test: positive right side / left side Thigh Thrust Test Sacral Thrust Test R Assessment and plan: Chronic low back pain secondary to lumbar degenerative disc disease, spondylosis with facet arthropathy without myelopathy, R Sacroiliitis Recommendation of R SI injection #2. May need a series of injections, up to every 3 mo, for optimal pain relief. Risks, benefits of procedure discussed and pt verbalized understanding. Admits to anticoagulant use or medical history of diabetes. Prednisone taper e script. Use, side effects, adverse reactions and safe storage discussed. Protocol for discontinuation/ continuation of m edications delma procedure discussed. All patient questions answered I have spent less than 30 minutes on patient care today. Dr Marie was available by phone for the evaluation of this patient. The time was used to review the medical records including relevant urine studies and Prescription history (MAPs), review of the available imaging, evaluation and examination of the patient, coordination of care with the medical staff and if applicable referring physicians, as well as creation of the medical record PQRS Narrative: Smoking Status Never smoker Hx Alcohol Use (MH) No Home Medications: Ambulatory Orders Atorvastatin [Lipitor] 10 mg PO DAILY 06/20/15 Losartan Potassium [Cozaar] 50 mg PO DAILY 06/20/15 Aspirin [Adult Low Dose Aspirin EC] 81 mg PO DAILY 01/25/19 Omeprazole 20 tab PO DAILY 11/15/21 Glimepiride [Amaryl] 2 mg PO AC-BRKFST 01/08/22 Citalopram Hydrobromide [Citalopram HBr] 20 mg PO DAILY 08/27/22 Glaucoma Eye Gtts 1 drop BOTH EYES DIRECTED 08/27/22 Multivitamins, Thera [Multivitamin (formulary)] 1 each PO DAILY@1200 tab 09/03/22 Sennosides-Docusate Sodium [Senokot-S] 2 each PO HS tab 09/03/22 metFORMIN HCL [Glucophage] 500 mg PO BID-W/MEALS tab 09/03/22 Apixaban [Eliquis] 2.5 mg PO BID #60 tab 09/04/22 Cyclobenzaprine [Flexeril] 5 mg PO BID PRN #30 tablet 09/04/22 HYDROcodone/APAP 7.5-325MG [[place] 7.5] 1 each PO Q4HR PRN #42 tab 09/04/22 Sennosides/Docusate Sodium [Senna-S 8.6-50 mg Tablet] 1 each PO DAILY PRN #30 tablet 09/04/22 predniSONE 5 mg PO DIRECTED 6 Days #21 tab 04/07/23 Controlled Substance Measures - Controlled Substance Measures Is patient prescribed a controlled substance at discharge?: No
== END ==
LOC: PNWHC3 12:07
PROVIDERS: ATTEND Specialist
DX: M51.36 Other intervertebral disc degeneration, lumbar region (principal); M47.816 Spondylosis without myelopathy or radiculopathy, lumbar region; G89.29 Other chronic pain; M46.1 Sacroiliitis, not elsewhere classified; Z79.82 Long term (current) use of aspirin; Z91.048 Other nonmedicinal substance allergy status; Z88.0 Allergy status to penicillin; Z88.1 Allergy status to other antibiotic agents; Z88.5 Allergy status to narcotic agent
CPT/HCPCS: 99211

== ENCOUNTER 2023-04-22 06:31 | Day surgery (SDC) | payer BC ==
[2023-04-21 08:58] VITALS: BMI 37.5
[~2023-04-22 06:31] MED LIST changes: -ACETAMINOPHEN TAB 500 MG TAB PO PRN; -DEXAMETHASONE SOD PHOSPHATE 4 MG/ML 1 ML VIAL IV ONE; -MELOXICAM 7.5 MG TAB PO PRN; -MIDAZOLAM 2 MG/2 ML VIAL IV PRN; -ONDANSETRON 4 MG/2 ML VIAL IVP ONE; -SCOPOLAMINE 1 MG/72 HR PATCH TRANSDERM ONE; -TRANEXAMIC ACID IN NACL,ISO-OS 1,000 MG in SALINE 1 100ML.BAG IVPB PRN
[2023-04-22 06:59] VITALS: TEMP 98
[2023-04-22 07:10] LABS: Glucose,Whole Blood 131 mg/dL (70-110)
[2023-04-22] MEDS ORDERED: methylPREDNISolone ACETATE 40 MG/ML 1 ML VIAL ONE (07:27)
[2023-04-22] MEDS ORDERED: ROPIVACAINE 5MG/ML 20ML VIAL ONE (07:27)
[2023-04-22] MEDS ORDERED: IOPAMIDOL M200 10 ML VIAL ONE (07:27)
--- NOTE | 2023-04-22 07:33 | P.PCN ---
Date of Procedure: 04/22/23 Procedure(s) Performed: Procedure= Right sacroiliac joints steroid injection under fluoroscopy guidance (fluoroscopy image stored on file in the radiology Department ) Preoperative diagnosis= 1- right sacroiliitis 2-lumbar degenerative disc disease 3-lumbar facet arthropathy Postoperative diagnosis=Same as preop Diagnosis . Complication = none Condition= stable Anesthesia=local anesthesia with ropivacaine 0.5% 2 mL only Indication for the procedure= patient complaining of low back pain , examination was positive for severe tenderness over the right sacroiliac joints , and patient diagnosed with right sacroiliitis, for this reason she was good candidate for right sacroiliac joint steroid injection. Description of the procedure= procedure risk and benefits discussed with the patient, including but not limited, risk of infection and bleeding, and ALLERGIC reaction to the medication and not complete pain relief and patient agreed with the preceding patient taken to the operating room, placed in prone position or standard monitors applied to the patient then after induction of anesthesia back prepped with chlorhexidine 3 times , Then under strict sterile technique, first I did the right sacroiliac joint the which was identified under fluoroscopy guidance been local infiltration of the skin and subcu interstitial with lidocaine 1% then 22-gauge Quincke Needle advanced slowly under fluoroscopy and placed in the right sacroiliac joint needle placement confirmed with AP and oblique and lateral view and after appropriate needle placement confirmed and after negative aspiration, or heme , then Ropivacaine 0.5% 3 mL, and 40 mg of Depo-Medrol mixed together and injected in the right sacroiliac joint after negative aspiration patient tolerated the procedure well without any complication.
[2023-04-22 07:57] VITALS: BP 116/78; PULSE 78; RESP 18
--- NOTE | 2023-04-22 08:41 | FL ---
EXAMINATION TYPE: FL guided pain mgmt statistic DATE OF EXAM: 04/22/2023 FLUOROSCOPY Fluoroscopy time of 2 seconds was used during SI joint injection. 1 image/s document/s the procedure . dap 1.01 mGycm2.
== END 2023-04-22 07:52 | disposition home or self-care (01) ==
LOC: ORPAIN 06:31
PROVIDERS: ATTEND Specialist
DX: M46.1 Sacroiliitis, not elsewhere classified (principal); M51.36 Other intervertebral disc degeneration, lumbar region; M47.816 Spondylosis without myelopathy or radiculopathy, lumbar region; Z88.8 Allergy status to other drugs, medicaments and biological substances
CPT/HCPCS: 27096; J1030; Q9966; J2795

== ENCOUNTER → 2023-05-21 | Outpatient (CLI) | payer BC ==
[2023-05-21 09:24] VITALS: BP 101/69; PULSE 77; RESP 16
--- NOTE | 2023-05-21 14:08 | P.PAINPG ---
PQRS Measure Charge Sheet Comment: A 57 yr old female with a history of severe and chronic low back pain secondary to lumbar degenerative disc diseases and lumbar spondylosis with facet arthropathy without myelopathy presents today for evaluation s/p R SI injection #2. Pt states she experienced 100 % pain relief x 2 wks s/p procedure. Pain ro marshall is currently at 4/10 in intensity, constant, predominantly axial, localized in the R lower lumbar spine, throbbing in character w occasional shooting towards the R thigh. Pain is provoked by sitting for periods of 20 min or more. Pain is alleviated with home exercise daily, heat, medications, walking, repositioning and rest. Oswestry axial pain score of 14. Interventional pain procedures completed include BL RFA L3-L5 (Mar 2022), R SI x2 Patient is currently on Ibuprofen, Robaxin Patient denies any side effects of the medication(s), denies excessive drowsiness or sleepiness, denies suicidal ideation and reports that the current pain medication is helping to control the pain and improve activities of daily living. Patient denies any motor or sensory deficits. Patient denies any fever or night sweats, denies any change in the bowel movements or urination. Physical Examination: -Constitutional: Cooperative. Not in acute distress . - Neurologic: Cranial nerve II to XII intact. No focal neurological deficits. - Psychatric: Alert & oriented x 3. Matching mood & appropriate affect. Judgment and insight intact. - Musculoskeletal: Cervical spine: Muscle bulk/ tone/ strength in the bilateral upper extremities normal Vertebral body tenderness to palpation over Spurling test positive Distraction test positive Facet loading test positive Thoracic spine Muscle bulk / tone/ strength in the bilateral paraspinal muscles normal Vertebral body tender to palpation over Facet loading test positive Lumbar spine: Motor bulk/ tone/ strength lower extremities , thigh and legs : 5/5 Deep tendon reflexes : Normal Knee Jerk. Normal Ankle Jerk . Vertebral body tenderness to palpation over Lumbar Facet Loading Test positive Straight Leg Raise: positive at 30 degrees right side/ left side Gaenslen's Test positive Sacral spine : Severe tenderness over the Sacroiliac joint: right side / left side Range of motion: Flexion of the lumbar spine <60 degrees Range of motion: Extension of the lumbar spine <20 degrees R Gaenslen's Test positive Seth test: positive right side / left side Thigh Thrust Test Sacral Thrust Test R Assessment and plan: Chronic low back pain secondary to lumbar degenerative disc disease, spondylosis with facet arthropathy without myelopathy, R Sacroiliitis Recommendation of PT w a focus on traction/ decompression of lumbosacral spine M51.36 M16.96. All patient questions answered I have spent less than 30 minutes on patient care today. Dr Marie was available by phone for the evaluation of this patient. The time was used to review the medical records including relevant urine studies and Prescription history (MAPs), review of the available imaging, evaluation and examination of the patient, coordination of care with the medical staff and if applicable ref erring physicians, as well as creation of the medical record , M PQRS Narrative: Smoking Status Never smoker Hx Alcohol Use (MH) No Home Medications: Ambulatory Orders Atorvastatin [Lipitor] 10 mg PO DAILY 06/20/15 Losartan Potassium [Cozaar] 50 mg PO DAILY 06/20/15 Aspirin [Adult Low Dose Aspirin EC] 81 mg PO DAILY 01/25/19 Omeprazole 20 tab PO DAILY 11/15/21 Citalopram Hydrobromide [Citalopram HBr] 20 mg PO DAILY 08/27/22 Multivitamins, Thera [Multivitamin (formulary)] 1 each PO DAILY@1200 tab 09/03/22 metFORMIN HCL [Glucophage] 500 mg PO BID-W/MEALS tab 09/03/22 Dorzolamide/Timolol/Pf [Dorzolamide 2%-Timolol 0.5%] 1 drop BOTH EYES BID 04/21/23 Latanoprost [Latanoprost 0.005%] 1 drop BOTH EYES HS 04/21/23 Semaglutide [Ozempic] 0.25 mg SQ FR 04/21/23 Controlled Substance Measures - Controlled Substance Measures Is patient prescribed a controlled substance at discharge?: No
== END ==
LOC: PNWHC3 07:58
PROVIDERS: ATTEND Specialist
DX: M51.36 Other intervertebral disc degeneration, lumbar region (principal); M46.1 Sacroiliitis, not elsewhere classified; M47.816 Spondylosis without myelopathy or radiculopathy, lumbar region; G89.29 Other chronic pain; Z79.82 Long term (current) use of aspirin; Z91.09 Other allergy status, other than to drugs and biological substances; Z88.0 Allergy status to penicillin; Z88.1 Allergy status to other antibiotic agents; Z88.5 Allergy status to narcotic agent
CPT/HCPCS: 99211

== ENCOUNTER → 2023-09-03 | Outpatient (CLI) | payer BC ==
[2023-09-03 11:16] LABS: Basophils # (A) 0.05 X 10*3/uL (0.00-0.10); Basophils % (A) 0.7 %; Eosinophils # (A) 0.17 X 10*3/uL (0.04-0.35); Eosinophils % (A) 2.2 %; HGB 13.5 g/dL (12.0-15.0); Lymphocytes # (A) 3.26 X 10*3/uL (0.90-5.00); Lymphocytes % (A) 42.6 %; MCHC 32.1 g/dL (32.0-37.0); MCV 87.1 FL (80.0-97.0); Mean Platelet Volume 10.1 FL (9.5-12.2); Monocytes # (A) 0.57 X 10*3/uL (0.20-1.00); Monocytes % (A) 7.5 %; NRBC Per 100 WBC 0 X 10*3/uL (0.00-0.01); Neutrophils # (A) 3.58 X 10*3/uL (1.80-7.70); Neutrophils % (A) 46.7 %; Platelet Count 326 X 10*3/uL (140-440); RBC 4.82 X 10*6/uL (4.10-5.20); RDW 13.2 % (11.5-14.5); WBC 7.65 X 10*3/uL (4.50-10.00)
[2023-09-03 11:30] LABS: Microalbumin Creatinine Ratio <18 mg/g Cr (0-30); Urine Creatinine 65.1 mg/dL (28.0-217.0)
[2023-09-03 12:01] LABS: ALT 21 U/L (8-44); AST 14 U/L (13-35); Albumin 4.4 g/dL (3.8-4.9); Albumin/Globulin Ratio 1.83 Ratio (1.60-3.17); Alkaline Phosphatase 83 U/L (41-126); BUN/Creat Ratio 23.14 Ratio (12.00-20.00); Blood Urea Nitrogen 16.2 mg/dL (9.0-27.0); Calcium 10.1 mg/dL (8.7-10.3); Carbon Dioxide 28.4 mmol/L (21.6-31.8); Chloride 104 mmol/L (96-109); Chol/HDL Ratio 3.04 Ratio; Globulin 2.4 g/dL (1.6-3.3); Glucose 123 mg/dL (70-110); LDL Cholesterol,Calculated 70.1 mg/dL (0.0-131.0); Magnesium 1.8 mg/dL (1.5-2.4); Sodium 141 mmol/L (135-145); Total Bilirubin 0.3 mg/dL (0.3-1.2); Total Protein 6.8 g/dL (6.2-8.2)
== END | disposition home or self-care (01) ==
LOC: LABWHC1 07:41
PROVIDERS: ATTEND Internal Medicine
DX: Z00.00 Encounter for general adult medical examination without abnormal findings (principal); I10 Essential (primary) hypertension; E78.2 Mixed hyperlipidemia; E11.9 Type 2 diabetes mellitus without complications
CPT/HCPCS: 36415; 80053; 80061; 82043; 82570; 83036; 83735; 84443; 85025

== ENCOUNTER → 2024-02-13 | Outpatient (CLI) | payer BC ==
--- NOTE | 2024-02-13 10:03 | XR ---
EXAMINATION TYPE: XR cervical spine comp DATE OF EXAM: 02/13/2024 CLINICAL HISTORY: pain COMPARISON: NONE TECHNIQUE: Frontal, lateral, oblique, swimmers, and open mouth view of the cervical spine are obtaine d. FINDINGS: The cervical spine is visualized in its entirety from C1 thru the top of T1 level. It is s atisfactory in alignment without evidence of acute fracture or dislocation. The pre-vertebral soft t issue appears within normal limits. [id number] degenerative disc space narrowing extending from C3-4 through C6-7. The C1-C2 articulation is unremarkable on the open mouth view. The oblique image s are within normal limits. IMPRESSION: No acute fracture or dislocation is seen in the cervical spine.ICD 10 NO FRACTURE, INITI AL EVALUATION
== END | disposition home or self-care (01) ==
LOC: RADXRMAIN 06:42
PROVIDERS: ATTEND Internal Medicine
DX: M54.2 Cervicalgia (principal)
CPT/HCPCS: 72050

== ENCOUNTER 2024-02-27 06:37 | Day surgery (SDC) | payer BC ==
[2024-02-25 15:00] VITALS: BMI 36.8
[2024-02-27] MEDS ORDERED: LIDOCAINE 1% (10MG/ML) FOR IV START INTRADERMA PRN (06:57)
[2024-02-27] MEDS: LACTATED RINGERS 1,000 ML IV SCH (07:21)
[2024-02-27 07:26] LABS: Glucose,Whole Blood 103 mg/dL (70-110)
[2024-02-27 07:30] VITALS: TEMP 97.4
[2024-02-27] MEDS: IV FLUID CONTINUATION 1,000 ML IV ONE (07:30)
[2024-02-27] MEDS ORDERED: MIDAZOLAM 2 MG/2 ML VIAL ONE (07:35)
[2024-02-27] MEDS ORDERED: PROPOFOL 10 MG/ML 20 ML VIAL IV ONE (07:35)
[2024-02-27] MEDS ORDERED: LIDOCAINE 2% (PF) 20 MG/ML 5 ML VIAL ONE (07:35)
[2024-02-27] MEDS ORDERED: fentaNYL (PF) 50 MCG/ML 2 ML AMP ONE (07:35)
--- NOTE | 2024-02-27 07:57 | P.PCN ---
Date of Procedure: 02/27/24 Procedure(s) Performed: Brief history: Patient is a pleasant 58-year-old white female scheduled for an elective upper endoscopy as well as colonoscopy as a part of evaluation of GERD/screening for colon cancer. She does a family history of colon cancer diagnosed in paternal grandmother and maternal uncle in the 60s and 70s respectively Procedure performed: Esophagogastroduodenoscopy with biopsy Colonoscopy snare polypectomy. Preoperative diagnosis: GERD Screening for colon cancer/family history of colon cancer Anesthesia: MAC Procedure: After informed consent was obtained from the patient was brought into the endoscopy unit and IV sedation was administered by anesthesia under continuous monitoring. Initially upper endoscopy was done. The Olympus GF 160 video endoscope was inserted inserted into the mouth and esophagus intubated without any difficulty and was gradually advanced into the stomach and duodenum and carefully examined. The bulb and second part of the duodenum appeared normal. The scope was then withdrawn into the stomach adequately insufflated with air and upon careful examination the antrum had mild gastritis and biopsies were done from this area. Mucosa of the body, cardia and fundus appeared normal. The scope was then withdrawn into the esophagus. Small sliding-type hiatal hernia noted. The GE junction was located at 40 cm to the incisors. It appeared regular with no erythema erosions or ulcerations. Rest of the esophagus appeared normal. Patient tolerated the procedure well. At this time the patient continued to remain sedation. Initial digital rectal examination was normal. Olympus CF 160 video colonoscope was then inserted into the rectum and gradually advanced to the cecum without any difficulty. Careful examination was performed as the scope was gradually being withdrawn. The prep was excellent. The cecum, ascending colon, transverse colon, descending colon, sigmoid colon and rectum appeared normal. The distal rectum there was a 5 mm sessile polyp removed by cold snare polypectomy. Scattered sigmoid diverticulosis seen. Retroflexion was performed in the rectum and no lesions were noted. Patient tolerated the procedure well. Impression: 1. Upper endoscopy revealed mild antral gastritis, small sliding type hiatal hernia but no evidence of esophagitis or Minor's esophagus 2. Colonoscopy revealed 5 mm distal rectal polyp status post cold snare polypectomy and scattered sigmoid diverticulosis Recommendations: Findings of this examination were discussed with the patient as well as her family. She was advised to follow-up the biopsy results. Continue with Protonix 40 mg daily and follow antireflux measures. Recommended repeat screening colonoscopy in 5 years because of a family history of colon cancer
[2024-02-27 08:01] VITALS: RESP 18
[2024-02-27 08:15] VITALS: BP 126/83; PULSE 65
== END 2024-02-27 08:35 | disposition home or self-care (01) ==
LOC: ORWHC2ENDO 06:37
PROVIDERS: ATTEND Internal Medicine Gastroenterology
DX: K29.70 Gastritis, unspecified, without bleeding (principal); K21.9 Gastro-esophageal reflux disease without esophagitis; Z12.11 Encounter for screening for malignant neoplasm of colon; K62.1 Rectal polyp; K44.9 Diaphragmatic hernia without obstruction or gangrene; K57.30 Diverticulosis of large intestine without perforation or abscess without bleeding; Z80.0 Family history of malignant neoplasm of digestive organs; Z79.899 Other long term (current) drug therapy; Z88.0 Allergy status to penicillin
CPT/HCPCS: 43239; 45385; 88305

== ENCOUNTER → 2024-06-14 | Outpatient (CLI) | payer BC ==
--- NOTE | 2024-06-14 15:35 | P.PAINPG ---
PQRS Measure Charge Sheet Comment: A 58 yr old female with a history of severe and chronic LBP > 2 yrs secondary to radiculopathy, lumbar spondylosis with facet arthropathy without myelopathy presents today for evaluation. Pain level is currently at 9 /10 in intensity, constant, predominantly axial, localized in the R lower lumbar spine, throbbing in character w occasional shooting towards the R buttock. Pain is provoked by sitting for periods of 20 min or more. Pain is alleviated with home exercise daily, heat, medications, walking, repositioning and rest. Interventional pain procedures completed include BL RFA L3-L5 (Mar 2022), R SI x2 Patient is currently on Ibuprofen, Robaxin Patient denies any side effects of the medication(s), denies excessive drowsiness or sleepiness, denies suicidal ideation and reports that the current pain medication is helping to control the pain and improve activities of daily living. Patient denies any motor or sensory deficits. Patient denies any fever or night sweats, denies any change in the bowel movements or urination. Physical Examination: -Constitutional: Cooperative. Not in acute distress . - Neurologic: Cranial nerve II to XII intact. No focal neurological deficits. - Psychatric: Alert & oriented x 3. Matching mood & appropriate affect. Judgment and insight intact. - Musculoskeletal: Cervical spine: Muscle bulk/ tone/ strength in the bilateral upper extremities normal Vertebral body tenderness to palpation over Spurling test positive Distraction test positive Facet loading test positive Thoracic spine Muscle bulk / tone/ strength in the bilateral paraspinal muscles normal Vertebral body tender to palpation over Facet loading test positive Lumbar spine: Motor bulk/ tone/ strength lower extremities , thigh and legs : 5/5 Deep tendon reflexes : Normal Knee Jerk. Normal Ankle Jerk . Vertebral body tenderness to palpation over Lumbar Facet Loading Test positive Straight Leg Raise: positive at 30 degrees right side/ left side Gaenslen's Test positive Sacral spine : Severe tenderness over the Sacroiliac joint: right side / left side Range of motion: Flexion of the lumbar spine <60 degrees Range of motion: Extension of the lumbar spine <20 degrees R Gaenslen's Test positive Seth test: positive right side / left side Thigh Thrust Test Sacral Thrust Test positive R Assessment and plan: Chronic LBP secondary to radiculopathy, spondylosis with facet arthropathy without myelopathy, R Sacroiliitis Recommendation of R SI injection #1. Risks, benefits of procedure discussed and pt verbalized understanding. All patient questions answered I have spent less than 30 minutes on patient care today. Dr Marie was available by phone for the evaluation of this patient. The time was used to review the medical records including relevant urine studies and Prescription history (MAPs), review of the available imaging, evaluation and examination of the patient, coordination of care with the medical staff and if applicable referring physicians, as well as creation of the medical record PQRS Narrative: Smoking Status Never smoker Hx Alcohol Use (MH) No Home Medications: Ambulatory Orders Atorvastatin [Lipitor] 10 mg PO DAILY 06/20/15 Losartan Potassium [Cozaar] 50 mg PO DAILY 06/20/15 Aspirin [Adult Low Dose Aspirin EC] 81 mg PO DIRECTED 01/25/19 Omeprazole 20 tab PO DAILY 11/15/21 Citalopram Hydrobromide [Citalopram HBr] 20 mg PO DAILY 08/27/22 Multivitamins, Thera [Multivitamin (formulary)] 1 each PO DAILY@1200 tab 09/03/22 metFORMIN HCL [Glucophage] 500 mg PO BID-W/MEALS tab 09/03/22 Dorzolamide/Timolol/Pf [Dorzolamide 2%-Timolol 0.5%] 1 drop BOTH EYES BID 04/21/23 Latanoprost [Latanoprost 0.005%] 1 drop BOTH EYES HS 04/21/23 Controlled Substance Measures - Controlled Substance Measures Is patient prescribed a controlled substance at discharge?: Yes When asked, does pt state using other controlled substances?: No If prescribed controlled substance>3 days was MAPS reviewed?: Prescribed <3 Days
[2024-06-14 17:14] VITALS: BP 143/81; PULSE 74; RESP 16; TEMP 98.7
== END ==
LOC: PNWHC3 07:36
PROVIDERS: ATTEND Specialist
DX: M47.26 Other spondylosis with radiculopathy, lumbar region (principal); M46.1 Sacroiliitis, not elsewhere classified; G89.29 Other chronic pain; Z91.09 Other allergy status, other than to drugs and biological substances; Z88.0 Allergy status to penicillin; Z88.1 Allergy status to other antibiotic agents; Z88.5 Allergy status to narcotic agent
CPT/HCPCS: 99211

== ENCOUNTER → 2024-06-30 | Outpatient (CLI) | payer BC ==
[2024-06-30 09:15] LABS: Appearance,Urine Clear (Clear); Bilirubin,Urine Negative (Negative); Blood,Urine Negative (Negative); Color,Urine Yellow; Glucose,Urine (UA) Negative (Negative); Ketones,Urine Negative (Negative); Leukocyte Esterase,Urine Moderate (Negative); Mucus,Urine Few /hpf; Nitrite,Urine Negative (Negative); PH, Urine 5.5 (5.0-8.0); Protein,Urine Negative (Negative); RBC,Urine 1 /hpf (0-5); Squamous Epithelial Cell,Urine 3 /hpf (0-4); Urobilinogen,Urine <2.0 mg/dL (<2.0); WBC,Urine 2 /hpf (0-5)
[2024-06-30 10:46] LABS: Basophils # (A) 0.05 X 10*3/uL (0.00-0.10); Basophils % (A) 0.7 %; Eosinophils # (A) 0.16 X 10*3/uL (0.04-0.35); Eosinophils % (A) 2.1 %; HCT 39.3 % (37.2-46.3); HGB 12.6 g/dL (12.0-15.0); Lymphocytes # (A) 2.84 X 10*3/uL (0.90-5.00); Lymphocytes % (A) 37.2 %; MCH 28.3 pg (27.0-32.0); MCHC 32.1 g/dL (32.0-37.0); MCV 88.1 FL (80.0-97.0); Mean Platelet Volume 10.5 FL (9.5-12.2); Monocytes # (A) 0.69 X 10*3/uL (0.20-1.00); NRBC Per 100 WBC 0 X 10*3/uL (0.00-0.01); Neutrophils # (A) 3.88 X 10*3/uL (1.80-7.70); Neutrophils % (A) 50.7 %; Platelet Count 266 X 10*3/uL (140-440); RBC 4.46 X 10*6/uL (4.10-5.20); RDW 13.3 % (11.5-14.5); WBC 7.64 X 10*3/uL (4.50-10.00)
[2024-06-30 11:13] LABS: ALT 30 U/L (8-44); AST 19 U/L (13-35); Alkaline Phosphatase 83 U/L (41-126); BUN/Creat Ratio 22.14 Ratio (12.00-20.00); Blood Urea Nitrogen 15.5 mg/dL (9.0-27.0); Calcium 9.6 mg/dL (8.7-10.3); Carbon Dioxide 27.6 mmol/L (21.6-31.8); Chloride 104 mmol/L (96-109); Chol/HDL Ratio 3.46 Ratio; Creatine Kinase 108 U/L (26-186); Glucose 130 mg/dL (70-110); LDL Cholesterol,Calculated 76.6 mg/dL (0.0-131.0); Magnesium 1.7 mg/dL (1.5-2.4); Sodium 141 mmol/L (135-145); Total Bilirubin 0.3 mg/dL (0.3-1.2); Uric Acid 6.5 mg/dL (2.9-7.7)
[2024-06-30 20:30] LABS: Microalbumin Creatinine Ratio <7 mg/g Cr (0-30)
== END | disposition home or self-care (01) ==
LOC: LABWHC1 06:56
PROVIDERS: ATTEND Internal Medicine
DX: Z00.00 Encounter for general adult medical examination without abnormal findings (principal); I10 Essential (primary) hypertension; E11.9 Type 2 diabetes mellitus without complications; E78.2 Mixed hyperlipidemia; M47.816 Spondylosis without myelopathy or radiculopathy, lumbar region
CPT/HCPCS: 36415; 80053; 80061; 81001; 82043; 82306; 82550; 82570; 83036; 83735; 84443; 84550; 85025

== ENCOUNTER → 2024-08-10 | Outpatient (CLI) | payer BC ==
--- NOTE | 2024-08-10 08:28 | BD ---
EXAMINATION TYPE: Axial Bone Density DATE OF EXAM: 08/10/2024 CLINICAL HISTORY: 58 years old Female. ICD-10 CODE: M85.851 OTH DISRD OF BONE DENSITY , Additional History: Height: 62.5 Weight: 223 FRAX RISK QUESTIONS: History of Fracture in Adulthood: yes Secondary Osteoporosis: 3. Menopause before 45: yes RISK FACTORS HISTORY OF: MEDICATIONS: EXAM MEASUREMENTS: Bone mineral densitometry was performed using the Angle System. Bone mineral density as measured about the Lumbar spine is: ----- L1-L4(G/cm2): 1.321 T Score Values are as follows: ----- L1: 1.0 ----- L2: -0.1 ----- L3: 2.0 ----- L4: 1.5 ----- L1-L4: 1.2 Z Score Values are as follows: ----- L1: 0.9 ----- L2: -0.2 ----- L3: 1.9 ----- L4: 1.4 ----- L1-L4: 1.1 Bone mineral density has: Decreased -4.1% since study of: 08-05-2022 Bone mineral density about the R hip (g/cm2): 1.031 Bone mineral density about the L hip (g/cm2): 0.999 T Score values are as follows: -----R Neck: -1.2 -----L Neck: -0.8 -----R Total: 0.2 -----L Total: -0.1 Z Score values are as follows: -----R Neck: -0.8 -----L Neck: -0.4 -----R Total: 0.2 -----L Total: -0.1 Bone mineral density has: Increased 0.7% since study of: 08-05-2022 FRAX%s: The graph provided illustrates a 10.8% chance for a major osteoporotic fx and a 0.7% chance f or the hips probability for fx in 10 years time. IMPRESSION: Normal (Values between +1 and -1 indicate normal bone mass). Consider repeating this study in 5 year s or sooner if there is some new clinical indication. NOTE: T-SCORE=SD OF THE YOUNG ADULT MEAN. [facility], , 08/10/2024 8:25 AM
--- NOTE | 2024-08-10 10:11 | MM ---
Reason for Exam: Screening (asymptomatic). Last mammogram was performed 2 year(s) and 0 month(s) ago. Patient History: Menarche at age 12. First Full-Term at age 22. Left ovary removed at age 39. Right ovary removed at age 39. Hysterectomy at age 39. Postmenopausal. Estrogen for 2 months starting at age 41. Risk Values: Saranya 5 year model risk: 1.2%. NCI Lifetime model risk: 6.9%. Prior Study Comparison: 04/27/2019 Bilateral Screening Mammogram, [facility]. 07/31/2021 Bilateral Screening Mammogram, [facility]. 08/01/2022 Bilateral MG 3D screening mammo w/cad, [facility]. Tissue Density: The breasts are almost entirely fatty. Findings: Analyzed By CAD. There is no suspicious group of microcalcifications or new suspicious mass in either breast. Overall Assessment: Benign, BI-RAD 2 Management: Screening Mammogram of both breasts in 1 year. . Patient should continue monthly self-breast exams. A clinical breast exam by your physician is recommended on an annual basis. This exam should not preclude additional follow-up of suspicious palpable abnormalities. Note on Saranya scores and lifetime risk: 1. A Saranya score greater than 3% is considered moderate risk. If this is the case, consider specialist referral to assess eligibility for a risk reducing agent. 2. If overall lifetime risk for the development of breast cancer is 20% or higher, the patient may qualify for future screening with alternating mammogram and breast MRI. [facility], , 08/10/2024 10:08 AM. Electronically signed and approved by: Raymundo Barajas M.D. Radiologis
== END | disposition home or self-care (01) ==
LOC: RADMAMWWP 06:54
PROVIDERS: ATTEND Internal Medicine
DX: Z12.31 Encounter for screening mammogram for malignant neoplasm of breast (principal); R92.313 Mammographic fatty tissue density, bilateral breasts; M85.89 Other specified disorders of bone density and structure, multiple sites; Z78.0 Asymptomatic menopausal state
CPT/HCPCS: 77063; 77067; 77080

== ENCOUNTER → 2024-08-13 | Outpatient (CLI) | payer BC ==
[2024-08-13 13:16] LABS: African American GFR (CKD) >90 (>60 ml/min/1.73 sqM); Blood Urea Nitrogen 14 mg/dL (7-17); Non-African American GFR(CKD) >90 (>60 ml/min/1.73 sqM)
--- NOTE | 2024-08-13 14:20 | CT ---
EXAMINATION TYPE: CT angio chest CT DLP: 487.50 mGycm, Automated exposure control for dose reduction was used. DATE OF EXAM: 08/13/2024 2:07 PM COMPARISON: CTA chest 10/04/2017 CLINICAL INDICATION:Female, 58 years old with history of R06.02 SHORTNESS OF BREATH; Leg swelling and SOB TECHNIQUE/CONTRAST: CTA scan of the thorax is performed with IV Contrast, patient injected with 100 mL of Isovue 370, pul monary embolism protocol. MIP images are created and reviewed. FINDINGS: Pulmonary Artery: There is no evidence for a filling defect within the pulmonary vasculature to sugge st acute pulmonary embolism. The pulmonary artery is of normal size. No reflux of contrast into the IVC and hepatic veins. Lungs/Pleura: No evidence of focal consolidation, pleural effusion or pneumothorax. Airway: Large airways are patent. Heart: Size within normal limits.No pericardial effusion. No significant coronary artery calcificatio ns. Vasculature: No evidence of aortic aneurysm. Mediastinum: No gross evidence of adenopathy. Musculoskeletal: No acute osseous abnormalities. Prominent anterior osteophyte at T9-T10. Soft Tissues: Unremarkable. Lower neck: No significant findings. Upper Abdomen: Diffuse low-attenuation to the liver parenchyma.. Gallbladder is surgically absent. IMPRESSION: 1. No evidence of pulmonary embolism or acute thoracic process. 2. Hepatic steatosis. [facility], , 08/13/2024 2:18 PM
== END | disposition home or self-care (01) ==
LOC: RADCTMAIN 12:11
PROVIDERS: ATTEND Internal Medicine
DX: K76.0 Fatty (change of) liver, not elsewhere classified (principal)
CPT/HCPCS: 82565; 84520; 71275; 36415; Q9967

== ENCOUNTER → 2024-12-10 | Outpatient (CLI) | payer BC ==
[2024-12-10 10:16] LABS: Basophils # (A) 0.06 X 10*3/uL (0.00-0.10); Basophils % (A) 0.8 %; Eosinophils # (A) 0.18 X 10*3/uL (0.04-0.35); Eosinophils % (A) 2.3 %; HCT 43.2 % (37.2-46.3); HGB 13.3 g/dL (12.0-15.0); Immature Grans, Automated 0.30 %; Lymphocytes # (A) 2.70 X 10*3/uL (0.90-5.00); Lymphocytes % (A) 34.6 %; MCH 27.2 pg (27.0-32.0); MCHC 30.8 g/dL (32.0-37.0); MCV 88.3 FL (80.0-97.0); Monocytes # (A) 0.53 X 10*3/uL (0.20-1.00); Monocytes % (A) 6.8 %; NRBC Per 100 WBC 0 X 10*3/uL (0.00-0.01); Neutrophils # (A) 4.32 X 10*3/uL (1.80-7.70); Neutrophils % (A) 55.2 %; Platelet Count 325 X 10*3/uL (140-440); RBC 4.89 X 10*6/uL (4.10-5.20); RDW 13.5 % (11.5-14.5); WBC 7.81 X 10*3/uL (4.50-10.00)
[2024-12-10 10:59] LABS: ALT 25 U/L (8-44); AST 17 U/L (13-35); Albumin 4.3 g/dL (3.8-4.9); Albumin/Globulin Ratio 2.05 Ratio (1.60-3.17); Alkaline Phosphatase 98 U/L (41-126); Anion Gap 10.20 mmol/L (4.00-12.00); BUN/Creat Ratio 29.71 Ratio (12.00-20.00); Blood Urea Nitrogen 20.8 mg/dL (9.0-27.0); Calcium 9.8 mg/dL (8.7-10.3); Carbon Dioxide 26.8 mmol/L (21.6-31.8); Chloride 104 mmol/L (96-109); Cholesterol 139.00 mg/dL (0.00-200.00); Creatine Kinase 79 U/L (26-186); Globulin 2.1 g/dL (1.6-3.3); Glucose 122 mg/dL (70-110); HDL Cholesterol 46.90 mg/dL (40.00-60.00); LDL Cholesterol,Calculated 60.9 mg/dL (0.0-131.0); Magnesium 1.9 mg/dL (1.5-2.4); Potassium 4.4 mmol/L (3.5-5.5); Sodium 141 mmol/L (135-145); Total Protein 6.4 g/dL (6.2-8.2); Triglycerides 156.00 mg/dL (0.00-149.00); Uric Acid 5.3 mg/dL (2.9-7.7); VLDL Calculation 31.20 mg/dL (5.00-40.00)
[2024-12-10 11:06] LABS: NT-Pro-B-Type Natriuretic Pept <36 pg/mL (0-125)
[2024-12-10 11:10] LABS: Bilirubin,Urine Negative (Negative); Blood,Urine Negative (Negative); Color,Urine Yellow (Yellow); Ketones,Urine Negative (Negative); Nitrite,Urine Negative (Negative); PH, Urine 5.5; Specific Gravity,Urine 1.009 (1.001-1.030); Urobilinogen,Urine 0.2 E.U./DL
[2024-12-10 11:16] LABS: Bacteria,Urine None Seen (None Seen)
== END | disposition home or self-care (01) ==
LOC: LABWHC1 12-09 07:37
PROVIDERS: ATTEND Internal Medicine
DX: I10 Essential (primary) hypertension (principal); E11.9 Type 2 diabetes mellitus without complications; E78.2 Mixed hyperlipidemia; M85.851 Other specified disorders of bone density and structure, right thigh; R60.0 Localized edema
CPT/HCPCS: 36415; 80053; 80061; 81001; 82043; 82306; 82550; 82570; 83036; 83735; 83880; 84443; 84550; 85025